=== PATIENT | female | born 1955 ===

== ENCOUNTER 2020-10-14 12:08 | Outpatient (REF) | payer MEDICARE, MEDICAID, SELFPAY ==
[2020-10-14 13:23] LABS: MANUAL DIFF FLAG NO
[2020-10-14 13:34] LABS: Basophils Absolute Auto 0.1 X10*3/uL (0.0-0.2); Basophils Percent Auto 0.7 % (0-2); Eosinophils Absolute Auto 0.2 X10*3/uL (0.0-0.4); Eosinophils Percent Auto 2.1 % (0-4); Hematocrit 45.7 % (37-47); Hemoglobin 15.4 g/dl (12.0-16.0); Imm Gran Abs Auto 0.06 X10*3/uL (0.00-0.03); Imm Gran Pct Auto 0.8 % (0.0-0.4); Lymphocytes Absolute Auto 2.2 X10*3/uL (1.2-4.9); Lymphocytes Percent Auto 30.6 % (20-40); Mean Corpuscular HGB Conc 33.7 g/dl (31.0-35.0); Mean Corpuscular Hemoglobin 29.3 pg (27.0-33.0); Mean Platelet Volume 10.1 fL (9.4-12.3); Monocytes Absolute Auto 0.7 X10*3/uL (0.1-1.2); Neutrophils Percent Auto 55.8 % (45-73); Platelet Count 282 X10*3/uL (160-400); Red Blood Count 5.25 X10*6/uL (4.20-5.50); Red Cell Distribution Width 12.8 % (11.0-16.0); White Blood Count 7.1 X10*3/uL (4.8-10.8)
[2020-10-14 14:04] LABS: Creatinine Urine 183.94 mg/dL; Microalbum/Creatinine Ratio Ur 7.6 ug/mg cr
[2020-10-14 14:07] LABS: Alanine Aminotransferase 38 U/L (0-31); Albumin Level 3.8 g/dL (3.5-5.0); Alkaline Phosphatase 129 U/L (39-117); Anion Gap 13 (12-20); Aspartate Amino Transferase 25 U/L (5-31); Bilirubin Total 0.7 mg/dL (0.0-1.0); Blood Urea Nitrogen 14 mg/dL (9-16); Calcium 8.8 mg/dL (8.4-10.2); Carbon Dioxide 26 mmol/L (22-29); Chloride 105 mmol/L (96-108); Cholesterol 180 mg/dL; Estimated Glomerular Filt Rate > 60; Glucose Fasting 182 mg/dL (60-99); HDL Cholesterol 48 mg/dL; LDL Cholesterol Calculated 109 mg/dl; Potassium 4.2 mmol/l (3.3-5.1); Sodium 140 mmol/L (135-145); Total Protein 6.9 g/dL (6.5-8.0); Triglycerides 119 mg/dL
[2020-10-14 14:29] LABS: Vitamin D 25-OH Total 26.4 ng/mL (>30)
[2020-10-15 07:22] LABS: LDL Cholesterol Direct 112 mg/dL (<100)
[2020-10-17 19:11] LABS: PTHI 65 pg/mL (14-64)
[2020-10-19 14:02] LABS: Calcium (PTHI) 9.4 mg/dL (8.6-10.4)
== END 2020-10-14 12:09 | disposition home or self-care (01) ==
LOC: HO.LAB 12:08
PROVIDERS: PCP Internal Medicine; Visit Provider Internal Medicine Endocrinology, Diabetes & Metabolism
DX: E11.9 Type 2 diabetes mellitus without complications (principal); N25.81 Secondary hyperparathyroidism of renal origin
CPT/HCPCS: 36415; 80053; 80061; 82043; 82306; 83721; 83970; 85025

== ENCOUNTER → 2020-12-27 13:50 | Outpatient (BNVA) | payer MEDICARE, MEDICAID, SELFPAY | PROVIDERS: PCP Internal Medicine; Visit Provider Internal Medicine Endocrinology, Diabetes & Metabolism | DX: E21.1 Secondary hyperparathyroidism, not elsewhere classified (principal); E11.3292 Type 2 diabetes mellitus with mild nonproliferative diabetic retinopathy without macular edema, left eye | CPT/HCPCS: 82947; 99212 ==

== ENCOUNTER 2021-01-05 13:18 | Outpatient (REF) | payer MEDICARE, MEDICAID, SELFPAY ==
--- NOTE | ~2021-01-05 | US_ITS ---
EXAMINATION: US THYROID CLINICAL INFORMATION: Nontoxic multinodular goiter. COMPARISON: Ultrasound soft tissue head/neck thyroid dated 08/13/2018. TECHNIQUE: Linear transducer grayscale and color Doppler examination with attention to the region of the thyroid. FINDINGS: SIZE: Measurements of the thyroid lobes and nodules are given in sagittal, anteroposterior and transverse dimensions respectively. Right Thyroid Lobe: 5.5 x 2.7 x 2.6 cm, volume 20.2 mL. Previously 5.4 x 3.4 x 2.4 cm, volume 23.0 mL. Parenchyma: The gland echotexture is heterogeneous. Thyroid vascularity is normal. Left Thyroid Lobe: 5.6 x 2.9 x 3.1 cm, volume 26.3 mL. Previously 5.6 x 2.1 x 2.0 cm, volume 12.3 mL. Parenchyma: The gland echotexture is heterogeneous. Thyroid vascularity is normal. Isthmus: 0.2 cm in maximum AP dimension. Previously 0.1 cm. Estimated total number of nodules greater than or equal to 1 cm: 3. Conche Operator nodules are described as follows: 1. Location: Right lower pole. Size: 3.3 x 2.8 x 2.4 cm, volume 11.6 mL. Previously: 2.9 x 2.8 x 2.3 cm, volume 9.8 mL. Nodule characteristics: Composition: Solid/almost completely solid (2). Echogenicity: Hypoechoic (2). Shape: Not taller than wide (0). Margins: Smooth (0). Echogenic Foci: None (0). ACR TI-RADS total points: 4 ACR TI-RADS category: 4 Significant change in size (>/= 20% in 2 dimensions and minimal increase of 2 mm): No Change in features: No Change in ACR TI-RADS risk category: No 2. Location: Right upper pole. Size: 0.9 x 0.7 x 0.8 cm, volume 0.3 mL. Previously: 1.0 x 1.0 x 0.5 cm, volume 0.3 mL. Nodule characteristics: Composition: Solid/almost completely solid (2). Echogenicity: Isoechoic (1). Shape: Not taller than wide (0). Margins: Smooth (0). Echogenic Foci: None (0). ACR TI-RADS total points: 3 ACR TI-RADS category: 3 Significant change in size (>/= 20% in 2 dimensions and minimal increase of 2 mm): No Change in features: No Change in ACR TI-RADS risk category: No 3. Location: Left mid pole. Size: 4.3 x 2.8 x 3.1 cm, volume 19.5 mL. Previously: 3.1 x 1.9 x 2.1 cm, volume 6.5 mL. Nodule characteristics: Composition: Solid/almost completely solid (2). Echogenicity: Hypoechoic (2). Shape: Not taller than wide (0). Margins: Smooth (0). Echogenic Foci: None (0). ACR TI-RADS total points: 4 ACR TI-RADS category: 4 Significant change in size (>/= 20% in 2 dimensions and minimal increase of 2 mm): Yes Change in features: No Change in ACR TI-RADS risk category: No 4. Location: Left lower pole. Size: 1.1 x 1.0 x 1.0 cm, volume 0.6 mL. Previously: 0.9 x 0.8 x 1.0 cm, volume 0.4 mL. Nodule characteristics: Composition: Solid (2). Echogenicity: Isoechoic (1). Shape: Not taller than wide (0). Margins: Smooth (0). Echogenic Foci: None (0). ACR TI-RADS total points: 3 ACR TI-RADS category: 3 Significant change in size (>/= 20% in 2 dimensions and minimal increase of 2 mm): No Change in features: No Change in ACR TI-RADS risk category: No NODES: No lymphadenopathy is seen in the tissue surrounding the thyroid gland. US/US thyroid IMPRESSION: Multiple bilateral thyroid nodules. Nodule #3, at the left midpole, shows significant increase in size from previous imaging. Recommend fine-needle aspiration if not previously sampled. No change in the other dominant nodule, nodule #1 in the right lower pole which was previously biopsied. ACR TI-RADS RECOMMENDATIONS: Ultrasound-guided fine-needle aspiration. * TR1 (0 point) and TR 2 (2 points): No FNA or follow up * TR3 (3 points): FNA if more than or equal to 2.5 cm in maximum dimension, follow up in 1, 3 and 5 years if 1.5 to 2.4 cm in maximum dimension. * TR 4 (4-6 points): FNA if more than or equal to 1.5 cm in maximum dimension, follow up in 1, 2, 3 and 5 years if 1 to 1.4 cm in maximum dimension. * TR 5 (more than or equal to 7 points): FNA if more than or equal to 1 cm in maximum dimension, follow up every year for 5 years if 0.5 to 0.9 cm in maximum dimension. TR3, TR4 or TR5 nodules that are below the size threshold for follow up receive no follow up.
== END 2021-01-05 13:19 | disposition home or self-care (01) ==
LOC: HO.US 13:18
PROVIDERS: Visit Provider Internal Medicine Endocrinology, Diabetes & Metabolism
DX: E04.2 Nontoxic multinodular goiter (principal)
CPT/HCPCS: 76536

== ENCOUNTER 2021-01-12 10:36 | Outpatient (REF) | payer MEDICARE, MEDICAID, SELFPAY ==
--- NOTE | 2021-01-12 11:06 | P.BOP_ITS ---
Brief Operative Note Date of Service: 01/12/21 Pre-op diagnosis: Nontoxic multinodular goiter Post-op diagnosis: same Procedure: This procedure was explained to the patient. Alternatives, risks and benefits were discussed. Written consent was obtained. After sterile preparation of the skin, fine-needle aspiration biopsy of left mid pole thyroid nodule size 4.3 x 2.8 x 3.1 cm was performed under direct ultrasound guidance to confirm accurate needle placement. The first pass was an aspiration of the cystic part, 2 ml of dark chocolate fluid was aspirated. Three passes were performed with 27 gauge needles. Sample was submitted to cytology, initial cytology reading was adequate. Two passes were dedicated for Afir[employer] genomic sequencing supervisor lending activities test. Patient tolerated procedure well. Aftercare instructions were provided. Impression: uncomplicated fine-needle aspiration biopsy of left mid pole thyroid nodule under direct ultrasound guidance. Surgeon: Maggie Vargas MD Anesthesia: local (Lidocaine 1 %) Estimated blood loss (mL): 0 Condition: stable Disposition: same day
[2021-01-12] MEDS: Lidocaine HCl 1 % MPF 5 ML VIAL SUBCUT (11:34)
== END 2021-01-12 10:37 | disposition home or self-care (01) ==
LOC: HO.US 10:36
PROVIDERS: Visit Provider Internal Medicine Endocrinology, Diabetes & Metabolism
DX: E04.2 Nontoxic multinodular goiter (principal)
CPT/HCPCS: 10005; 88172; 88173; 88177; 88305

== ENCOUNTER → 2021-03-28 12:08 | Outpatient (BNVA) | payer MEDICARE, MEDICAID, SELFPAY | PROVIDERS: PCP Internal Medicine; Visit Provider Internal Medicine Endocrinology, Diabetes & Metabolism | DX: Z13.89 Encounter for screening for other disorder (principal) | CPT/HCPCS: Q3014 ==

== ENCOUNTER → 2021-06-14 08:09 | Outpatient (BNVA) | payer MEDICARE, MEDICAID, SELFPAY | PROVIDERS: PCP Internal Medicine; Visit Provider Internal Medicine Endocrinology, Diabetes & Metabolism | DX: E11.65 Type 2 diabetes mellitus with hyperglycemia (principal); E11.3292 Type 2 diabetes mellitus with mild nonproliferative diabetic retinopathy without macular edema, left eye; E55.9 Vitamin D deficiency, unspecified; E78.5 Hyperlipidemia, unspecified; E04.2 Nontoxic multinodular goiter; E66.9 Obesity, unspecified; M85.80 Other specified disorders of bone density and structure, unspecified site; E21.1 Secondary hyperparathyroidism, not elsewhere classified; Z79.4 Long term (current) use of insulin | CPT/HCPCS: 82947; 99212 ==

== ENCOUNTER → 2022-01-24 08:05 | Outpatient (BNVA) | payer MEDICARE, MEDICAID, SELFPAY | PROVIDERS: PCP Internal Medicine; Visit Provider Internal Medicine Endocrinology, Diabetes & Metabolism | DX: E11.65 Type 2 diabetes mellitus with hyperglycemia (principal); E04.2 Nontoxic multinodular goiter; E21.1 Secondary hyperparathyroidism, not elsewhere classified | CPT/HCPCS: 82947; 83036; 99212 ==

== ENCOUNTER → 2022-02-14 10:43 | Outpatient (BNVA) | payer MEDICARE, MEDICAID, SELFPAY | PROVIDERS: PCP Internal Medicine; Visit Provider Dietitian, Registered | DX: E11.65 Type 2 diabetes mellitus with hyperglycemia (principal) | CPT/HCPCS: 97802 ==

== ENCOUNTER → 2022-03-26 14:22 | Outpatient (BNVA) | payer MEDICARE, MEDICAID, SELFPAY | PROVIDERS: PCP Internal Medicine; Visit Provider Dietitian, Registered | DX: E11.65 Type 2 diabetes mellitus with hyperglycemia (principal) | CPT/HCPCS: 97803 ==

== ENCOUNTER 2022-04-10 15:05 | Outpatient (REF) | payer MEDICARE, MEDICAID, SELFPAY ==
--- NOTE | ~2022-04-10 | MM_ITS ---
EXAMINATION: MM DIAGNOSTIC DIGITAL BREAST TOMOSYNTHESIS, BILATERAL US DIAGNOSTIC ULTRASOUND BREAST, RIGHT CLINICAL INFORMATION: Screening converted to diagnostic. Patient and family notes right nipple inversion on and off for 2 months. No discharge or palpable concern. TC score 5%. COMPARISON: Mammography: 02/16/2020, 01/29/2019, 01/08/2018 TECHNIQUE: Digital breast tomosynthesis is performed in both the craniocaudal and mediolateral oblique views along with computer-aided detection (CAD). Synthesized 2D images are generated from the tomosynthesis. Ultrasound right breast is targeted to the retroareolar and periareolar region. Grayscale imaging and color Doppler are performed without and with harmonics. FINDINGS: There are scattered areas of fibroglandular density (ACR BI-RADS breast composition Category b). Parenchymal pattern is similar to prior studies. There is no interval mass or architectural abnormality or developing density. No skin thickening or coarsening of the Montez's ligaments or interval duct ectasia. No abnormal calcifications. The axilla are unremarkable. No significant changes from prior studies. Ultrasound right breast demonstrates no cystic or solid mass or architectural abnormality or focal duct ectasia. No skin thickening or edema tracking in soft tissue planes. Results are discussed with the patient and her daughter at time of visit and with assistance of an ekg tech. Patient has appointment with PCP tomorrow. MM/MM tomosynthesis diagnostic BI IMPRESSION: -No mammographic evidence of malignancy. No significant changes from prior studies. -Unremarkable targeted right breast ultrasound. ASSESSMENT: BI-RADS 1: Negative RECOMMENDATION: 1. Patient should be managed based on the clinical impression. If clinically indicated, further evaluation may be considered with surgical consult. Decision to proceed with biopsy should be based on clinical grounds and degree of clinical concern. 2. Otherwise, routine annual screening mammography. This patient's information was entered into a reminder system with a target due date for their next mammogram.
== END 2022-04-10 15:06 | disposition home or self-care (01) ==
LOC: HO.MAMMO 15:05
PROVIDERS: PCP Internal Medicine; Visit Provider Internal Medicine
DX: N64.59 Other signs and symptoms in breast (principal)
CPT/HCPCS: 76642; 77062; 77066

== ENCOUNTER → 2022-05-22 11:36 | Outpatient (BNVA) | payer MEDICARE, MEDICAID, SELFPAY | PROVIDERS: PCP Internal Medicine; Visit Provider Nurse Practitioner Family | DX: Z01.818 Encounter for other preprocedural examination (principal); K59.01 Slow transit constipation | CPT/HCPCS: 99212 ==

== ENCOUNTER → 2022-05-28 15:51 | Outpatient (BNVA) | payer MEDICARE, MEDICAID, SELFPAY | PROVIDERS: PCP Internal Medicine; Visit Provider Registered Nurse Diabetes Educator | DX: E11.65 Type 2 diabetes mellitus with hyperglycemia (principal) | CPT/HCPCS: 99211 ==

== ENCOUNTER → 2022-06-14 13:30 | Outpatient (BNVA) | payer MEDICARE, MEDICAID, SELFPAY | PROVIDERS: PCP Internal Medicine; Visit Provider Dietitian, Registered | DX: E11.65 Type 2 diabetes mellitus with hyperglycemia (principal); Z79.4 Long term (current) use of insulin; Z71.3 Dietary counseling and surveillance | CPT/HCPCS: 97803 ==

== ENCOUNTER 2022-06-19 10:09 | Outpatient (REF) | payer MEDICARE, MEDICAID, SELFPAY ==
[2022-06-19 10:57] LABS: Estimated Average Glucose 186 mg/dL; Hemoglobin A1c % 8.1 %
[2022-06-19 11:20] LABS: Alanine Aminotransferase 41 U/L (0-31); Albumin Level 3.6 g/dL (3.5-5.0); Alkaline Phosphatase 116 U/L (39-117); Anion Gap 11 (12-20); Aspartate Amino Transferase 37 U/L (5-31); Bilirubin Total 0.5 mg/dL (0.0-1.0); Blood Urea Nitrogen 12 mg/dL (9-16); Calcium 9.1 mg/dL (8.4-10.2); Carbon Dioxide 28 mmol/L (22-29); Chloride 105 mmol/L (96-108); Cholesterol 129 mg/dL; Estimated Glomerular Filt Rate > 60; Glucose Fasting 179 mg/dL (60-99); HDL Cholesterol 43 mg/dL; LDL Cholesterol Calculated 69 mg/dl; Potassium 4.4 mmol/L (3.3-5.1); Sodium 140 mmol/L (135-145); Total Protein 6.8 g/dL (6.5-8.0); Triglycerides 89 mg/dL
[2022-06-19 11:41] LABS: Vitamin D 25-OH Total 32.9 ng/mL (>30)
[2022-06-19 14:14] LABS: Creatinine Urine 125.37 mg/dL; Microalbum/Creatinine Ratio Ur 63.8 ug/mg cr
== END 2022-06-19 10:10 | disposition home or self-care (01) ==
LOC: HO.10HDL 10:09
PROVIDERS: Absent Provider Internal Medicine Endocrinology, Diabetes & Metabolism; Visit Provider Internal Medicine
DX: E11.65 Type 2 diabetes mellitus with hyperglycemia (principal); E11.3292 Type 2 diabetes mellitus with mild nonproliferative diabetic retinopathy without macular edema, left eye; E78.5 Hyperlipidemia, unspecified; E55.9 Vitamin D deficiency, unspecified
CPT/HCPCS: 36415; 80053; 80061; 82043; 82306; 83036

== ENCOUNTER → 2022-06-25 15:06 | Outpatient (BNVA) | payer MEDICARE, MEDICAID, SELFPAY | PROVIDERS: PCP Internal Medicine; Visit Provider Registered Nurse Diabetes Educator | DX: E11.65 Type 2 diabetes mellitus with hyperglycemia (principal) | CPT/HCPCS: 99211 ==

== ENCOUNTER → 2022-08-09 12:39 | Outpatient (BNVA) | payer MEDICARE, MEDICAID, SELFPAY | PROVIDERS: PCP Internal Medicine; Visit Provider Dietitian, Registered | DX: E11.65 Type 2 diabetes mellitus with hyperglycemia (principal) | CPT/HCPCS: 97803 ==

== ENCOUNTER → 2022-09-04 15:27 | Outpatient (BNVA) | payer MEDICARE, MEDICAID, SELFPAY | PROVIDERS: PCP Internal Medicine; Visit Provider Registered Nurse Diabetes Educator | DX: E11.65 Type 2 diabetes mellitus with hyperglycemia (principal); Z79.4 Long term (current) use of insulin | CPT/HCPCS: 99211 ==

== ENCOUNTER 2022-10-08 14:44 | Outpatient (REF) | payer MEDICARE, MEDICAID, SELFPAY ==
--- NOTE | ~2022-10-08 | US_ITS ---
EXAMINATION: US THYROID CLINICAL INFORMATION: Nontoxic multinodular goiter. COMPARISON: Thyroid ultrasound 01/05/2021 and 08/13/2018. Ultrasound-guided left thyroid biopsy 01/12/2021. TECHNIQUE: Linear transducer grayscale and color Doppler examination with attention to the region of the thyroid. FINDINGS: SIZE: Measurements of the thyroid lobes and nodules are given in sagittal, anteroposterior and transverse dimensions respectively. Right Thyroid Lobe: 6.8 x 3.9 x 2.3 cm, volume 32.0 mL. Previously 5.5 x 2.7 x 2.6 cm, volume 20.2 mL. Parenchyma: The gland echotexture is homogeneous. Thyroid vascularity is increased. Left Thyroid Lobe: 6.8 x 3.1 x 2.4 cm, volume 26.6 mL. Previously 5.6 x 2.9 x 3.1 cm, volume 26.3 mL. Parenchyma: The gland echotexture is homogeneous. Thyroid vascularity is increased. Isthmus: 0.2 cm in maximum AP dimension. Previously 0.2 cm. Estimated total number of nodules greater than or equal to 1 cm: 4. Tack Driller nodules are described as follows: 1. Location: Right lower pole. Size: 3.7 x 3.2 x 2.5 cm, volume 15.4 mL. Previously: 3.3 x 2.8 x 2.4 cm, volume 11.6 mL. Nodule characteristics: Composition: Solid (2). Echogenicity: Isoechoic (1). Shape: Taller than wide (3). Margins: Smooth (0). Echogenic Foci: None (0). ACR TI-RADS total points: 6 Previous: 4 ACR TI-RADS category: 4 Previous: 4 Significant change in size (>/= 20% in 2 dimensions and minimal increase of 2 mm or 50% or greater increase in volume): Change in features: Change in ACR TI-RADS risk category: 2. Location: Right upper pole. Size: 1.0 x 0.7 x 0.9 cm, volume 0.3 mL. Previously: 0.9 x 0.7 x 0.8 cm, volume 0.3 mL. Nodule characteristics: Composition: Solid (2). Echogenicity: Isoechoic (1). Shape: Not taller than wide (0). Margins: Smooth (0). Echogenic Foci: None (0). ACR TI-RADS total points: 3 Previous: 3 ACR TI-RADS category: 3 Previous: 3 Significant change in size (>/= 20% in 2 dimensions and minimal increase of 2 mm or 50% or greater increase in volume): Change in features: Change in ACR TI-RADS risk category: 3. Location: Left mid pole. Size: 4.2 x 2.6 x 2.6 cm, volume 14.8 mL. Previously: 4.3 x 2.8 x 3.1 cm, volume 19.5 mL. Nodule characteristics: Composition: Solid (2). Echogenicity: Hypoechoic (2). Shape: Not taller than wide (0). Margins: Smooth (0). Echogenic Foci: None (0). ACR TI-RADS total points: 4 Previous: 4 ACR TI-RADS category: 4 Previous: 4 Significant change in size (>/= 20% in 2 dimensions and minimal increase of 2 mm or 50% or greater increase in volume): Change in features: Change in ACR TI-RADS risk category: 4. Location: Left lower pole. Size: 1.9 x 1.2 x 1.1 cm, volume 1.2 mL. Previously: 1.1 x 1.0 x 1.0 cm, volume 0.6 mL. Nodule characteristics: Composition: Solid (2). Echogenicity: Isoechoic (1). Shape: Not taller than wide (0). Margins: Smooth (0). Echogenic Foci: None (0). ACR TI-RADS total points: 3 Previous: 3 ACR TI-RADS category: 3 Previous: 3 Significant change in size (>/= 20% in 2 dimensions and minimal increase of 2 mm or 50% or greater increase in volume): Change in features: Change in ACR TI-RADS risk category: NODES: No lymphadenopathy is seen in the tissue surrounding the thyroid gland. US/US thyroid IMPRESSION: Enlarged hypervascular thyroid gland. There is slight interval increase in size in the largest nodule in the lower pole on the right. This meets TI RADS criteria for fine-needle aspiration. There is interval increase in size in the now 1 x 2 cm nodule in the inferior left lobe. Bilateral thyroid nodules are otherwise stable. ACR TI-RADS RECOMMENDATION REFERENCE: Ultrasound-guided fine-needle aspiration, followup ultrasound, no further follow up. * TR1 (0 point) and TR 2 (2 points): No FNA or follow up * TR3 (3 points): FNA if more than or equal to 2.5 cm in maximum dimension, followup ultrasound in 1, 3 and 5 years if 1.5 to 2.4 cm in maximum dimension. * TR4 (4-6 points): FNA if more than or equal to 1.5 cm in maximum dimension, followup ultrasound in 1, 2, 3 and 5 years if 1 to 1.4 cm in maximum dimension. * TR5 (more than or equal to 7 points): FNA if more than or equal to 1 cm in maximum dimension, followup ultrasound every year for 5 years if 0.5 to 0.9 cm in maximum dimension. * TR3, TR4 or TR5 nodules that are below the size threshold for follow up receive no follow up.
== END 2022-10-08 14:45 | disposition home or self-care (01) ==
LOC: HO.US 14:44
PROVIDERS: Visit Provider Internal Medicine Endocrinology, Diabetes & Metabolism
DX: E04.2 Nontoxic multinodular goiter (principal)
CPT/HCPCS: 76536

== ENCOUNTER 2022-10-09 15:43 | Outpatient (REF) | payer MEDICARE, MEDICAID, SELFPAY | END 2022-10-09 15:44 | disposition home or self-care (01) | LOC: HO.MRI 15:43 | PROVIDERS: Visit Provider Internal Medicine | DX: Z13.89 Encounter for screening for other disorder (principal) ==

== ENCOUNTER → 2022-11-14 13:40 | Outpatient (BNVA) | payer MEDICARE, MEDICAID, SELFPAY | PROVIDERS: PCP Internal Medicine; Visit Provider Internal Medicine Endocrinology, Diabetes & Metabolism | DX: E11.65 Type 2 diabetes mellitus with hyperglycemia (principal); E04.2 Nontoxic multinodular goiter; E21.1 Secondary hyperparathyroidism, not elsewhere classified | CPT/HCPCS: 82947; 99212 ==

== ENCOUNTER 2023-02-21 08:42 | Outpatient (REF) | payer MEDICARE, MEDICAID, SELFPAY ==
--- NOTE | 2023-02-21 09:52 | P.BOP_ITS ---
Brief Operative Note Date of Service: 02/21/23 Pre-op diagnosis: Multinodular Thyroid Procedure: This is doctor Leslie Michelle. This is an ultrasound-guided fine-needle aspiration report. Indication: Multinodular Thyroid Porcedure: Procedure was explained to the patient. Alternatives, the risk and benefits were discussed. Written consent was obtained. A time-out was also obtained. After sterile preparation, 1 ml of 1% lidocaine solution was applied subcutaneously for anesthetic effect. Then Fine-needle aspiration of a right mid pole 4.6 x 3.0 x 2.7 cm thyroid nodule was performed using direct ultrasound guidance to confirm accurate needle placement. Four aspirations were made using 27 gauge needles. Samples were submitted for cytology. 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 The patient tolerated the pr ocedure well. Aftercare instructions were provided. Impression: Uncomplicated fine needle aspiration biopsy of a right mid pole 4.6 x 3.0 x 2.7 cm thyroid nodule under ultrasound guidance. Of note, the patient previously underwent biopsy of 3 separate nodules as listed below. 1) left mid pole 4.3 x 2.8 x 3.1 cm thyroid nodule biopsied in 2020, now measuring 3.7 x 2.6 x 2.0 cm so no repeat FNA indicated 2) Right lower pole 2.9 x 1.8 x 2.2 cm thyroid nodule biopsied in 2019, now measuring 1.5 x 0.8 x 1.4 cm so no repeat FNA indicated 3) Left lower pole previously measured as 1 nodule measuring 3.0 x 1.9 x 2.0 cm and biopsied in 2019, now measured as 2 separate nodules measuring 1.0 cm in max dimension and 0.9 cm in max dimension, spongiform so no repeat FNA indicated Surgeon: Leslie Michelle, DO Was an Camera Control Operator used for this Procedure?: No Estimated blood loss (mL): 0
[2023-02-21] MEDS: Lidocaine HCl 1 % MPF 5 ML VIAL 1 ML SUBCUT (12:00)
== END 2023-02-21 08:43 | disposition home or self-care (01) ==
LOC: HO.US 08:42
PROVIDERS: PCP Internal Medicine; Visit Provider Internal Medicine Endocrinology, Diabetes & Metabolism
DX: E04.2 Nontoxic multinodular goiter (principal)
CPT/HCPCS: 10005; 88172; 88173; 88177; 88305

== ENCOUNTER → 2023-03-07 13:03 | Outpatient (BNVA) | payer MEDICARE, MEDICAID, SELFPAY | PROVIDERS: PCP Internal Medicine; Visit Provider Internal Medicine Endocrinology, Diabetes & Metabolism | DX: E04.2 Nontoxic multinodular goiter (principal); E21.1 Secondary hyperparathyroidism, not elsewhere classified; E11.65 Type 2 diabetes mellitus with hyperglycemia | CPT/HCPCS: 82947; 83036; 99212 ==

== ENCOUNTER 2023-04-16 14:40 | Outpatient (REF) | payer MEDICARE, MEDICAID, SELFPAY ==
--- NOTE | ~2023-04-16 | MM_ITS ---
EXAMINATION: MM SCREENING DIGITAL BREAST TOMOSYNTHESIS, BILATERAL CLINICAL INFORMATION: Screening. Asymptomatic. The lifetime risk of breast cancer based on the Tyrer-Cuzick Model is 5%. COMPARISON: Mammography: 04/10/2022, 02/16/2020, 01/29/2019; right breast ultrasound 04/10/2022 TECHNIQUE: Digital breast tomosynthesis is performed in both the craniocaudal and mediolateral oblique views along with computer-aided detection (CAD). Synthesized 2D images are generated from the tomosynthesis. FINDINGS: There are scattered areas of fibroglandular density (ACR BI-RADS breast composition Category b). There are no significant masses, abnormal calcifications, or other abnormalities. Parenchymal pattern is similar to prior studies. There is no developing density or architectural abnormality. The axilla and skin contours are unremarkable. No significant changes. MM/MM tomosynthesis screening BI IMPRESSION: No mammographic evidence of malignancy. ASSESSMENT: BI-RADS 1: Negative RECOMMENDATION: Routine annual mammography screening. This patient's information was entered into a reminder system with a target due date for their next mammogram.
== END 2023-04-16 14:41 | disposition home or self-care (01) ==
LOC: HO.MAMMO 14:40
PROVIDERS: PCP Internal Medicine; Visit Provider Internal Medicine
DX: Z12.31 Encounter for screening mammogram for malignant neoplasm of breast (principal)
CPT/HCPCS: 77063; 77067

== ENCOUNTER → 2023-06-05 14:46 | Outpatient (BNVA) | payer MEDICARE, MEDICAID, SELFPAY | PROVIDERS: PCP Internal Medicine; Visit Provider Internal Medicine Endocrinology, Diabetes & Metabolism | DX: E11.65 Type 2 diabetes mellitus with hyperglycemia (principal); E21.1 Secondary hyperparathyroidism, not elsewhere classified; E04.2 Nontoxic multinodular goiter | CPT/HCPCS: 82947; 83036; 99212 ==

== ENCOUNTER 2023-09-24 12:19 | Outpatient (REF) | payer MEDICARE, MEDICAID, SELFPAY ==
[2023-09-24 14:25] LABS: Anion Gap 13 (12-20); Blood Urea Nitrogen 12 mg/dL (9-16); Calcium 9.2 mg/dL (8.4-10.2); Carbon Dioxide 26 mmol/L (22-29); Chloride 103 mmol/L (96-108); Estimated Glomerular Filt Rate > 60; Glucose Random 241 mg/dL (60-115); Potassium 4.7 mmol/L (3.3-5.1); Sodium 137 mmol/L (135-145)
[2023-09-24 14:42] LABS: Vitamin D 25-OH Total 36.8 ng/mL (>30)
[2023-09-25 16:34] LABS: Calcium (PTHI) 9.3 mg/dL (8.6-10.4); PTHI 64 pg/mL (16-77)
== END 2023-09-24 12:20 | disposition home or self-care (01) ==
LOC: HO.10HDL 12:19
PROVIDERS: Visit Provider Internal Medicine Endocrinology, Diabetes & Metabolism
DX: E11.65 Type 2 diabetes mellitus with hyperglycemia (principal); E21.1 Secondary hyperparathyroidism, not elsewhere classified; Z79.4 Long term (current) use of insulin
CPT/HCPCS: 36415; 80048; 82306; 82947; 83036; 83970; 99212

== ENCOUNTER 2023-09-24 12:29 | Outpatient (AMB) | payer MEDICARE, MEDICAID, SELFPAY ==
--- NOTE | 2023-09-24 12:39 | MHC.OFFVIS ---
Intake Vital Signs 09/24/23 12:41 Weight 214 lb 11.684 oz BP 122/76 Blood Pressure Location Lt brachial Position Sitting Pulse 88 Pulse Source Pulse Oximeter Intake Visit Reasons: f/u Type 2 DM Intake Note: Patient present today to follow up on Type 2 Diabetes Mellitus. Patient receives DME supplies through: [employer] Last Diabetic Eye exam: March 2023 Last Podiatry Visit: None Random Glucose: 226 mg/dl HgA1C:8.9%E Bottle House Pumper Required: Yes Bottle House Pumper Language: Interior Plant Caretaker Name: Megan medical staff Information Interpreted: non-clinical & clinical Accompanied by: Daughter Allergies No Known Allergies [No Known Allergies*] Allergy (Verified 09/24/23 13:04) Medication List - Last Reconciled 09/24/23 by Tramaine Herrmann MD bisacodyl (Dulcolax (bisacodyl)) 10 mg (2 x 5 mg) PO ONCE 1 day blood sugar diagnostic (FreeStyle Lite Strips) 1 strip miscellaneous TID 30 days blood-glucose meter (FreeStyle Lite Meter kit) As directed checks fingersticks 4X/day buspirone 7.5 mg PO BID mmyrfolfnw-aowohmggqnlfd-zkve 50-300-40 mg 1 cap PO Q8H PRN 30 days cholecalciferol (vitamin D3) 50 mcg PO DAILY 30 days citalopram 20 mg PO DAILY dulaglutide (Trulicity) 4.5 mg (0.5 mL) subcut QWEEK empagliflozin (Jardiance) 25 mg PO DAILY flash glucose scanning reader (FreeStyle Blank 2 [place]) As directed flash glucose sensor (FreeStyle Blank 2 Sensor kit) As directed change every 14 days insulin lispro (Humalog KwikPen (U-100) Insulin) 10 units (0.1 mL) subcut .before lunch lancets (FreeStyle Lancets) As directed 3 times a day Lantus Solostar U-100 Insulin (insulin glargine) 40 units (0.4 mL) subcut DAILY 90 days NS latanoprost 0.005% 1 drp ophthalmic (eye) BEDTIME lisinopril 40 mg PO DAILY 90 days lorazepam 0.5 mg PO BID PRN metformin 500 mg PO BID 90 days mirtazapine 30 mg PO BEDTIME paliperidone ER 3 mg PO DAILY pantoprazole 40 mg PO DAILY 90 days polyethylene glycol 3350 (Miralax) 238 grams PO ONCE rosuvastatin (Crestor) 40 mg PO DAILY 90 days sumatriptan succinate 25 mg PO Q2-4H PRN 30 days HPI HPI Comments History of Present Illness Details She has DM type 2 diagnosed 15 years ago. She is Currently on metformin ER 500 mg bid , Lantus 40 units at bed time. Trulicity 4.5 mg weekly. Jardiance 10 mg QD ( not taking because ran out ) Denies side effects of the medications. Blank download shows says sensor is active 71% of the time. Average glucose is 223 with G mi of 8.6% and variability of 24 .7%. 23% range with 50% hyperglycemia and 27% very hyperglycemic and no hypoglycemia. Pattern shows increases in glucose after lunch with declining blood sugars overnight No hypoglycemia Complications:, nephropathy, neuropathy, no CVA, no CAD, PVD. Last ophthalmology evaluation:last mo . Has appt next wk , she has mild nonproliferative retinopathy in the left eye without macular edema. Right eye has no retinopathy. She denies nocturia , polyuria and polydipsia, she denies numbness, tingling, burning pain, blurred vision. COUNT INCLUDES THE [facility] Medical History Cognitive impairment Diabetes type 2, uncontrolled Dyslipidemia Hyperparathyroidism due to vitamin D deficiency nursing home (current) use of insulin Mild recurrent major depression Non-proliferative diabetic retinopathy, mild, left eye Non-toxic multinodular goiter Obesity (BMI 30-39.9) Osteopenia Physical exam Vitamin D deficiency Surgical History H/O foot surgery H/O lithotripsy History of appendectomy Hx laparoscopic cholecystectomy Hx of tubal ligation S/P CARISSA-BSO Family History Mother Diabetes Father Diabetes Social History Housing: Apartment Alcohol intake: never Patient Tobacco Use Status: Former Tobacco user Quit Date: Over 20 years ago. e-Cigarette/Vaping Use: Never Used Second Hand Smoke Exposure: No service: No Current occupational status: unemployed Cognitive needs: No Hearing needs: No Vision needs: Yes Physical Exam Vital Signs: Last Vital Signs Pulse 88 09/24/23 12:41 BP 122/76 09/24/23 12:41 Absence of Cushingoid features. Absence of acromegalic features. Neck exam reveals nl size thyroid about 15 gms. No thyroid nodules palpable. No carotid bruits present. Lungs CTA. Heart S1 S2, Reg R/R. No M/R/ G. Skin exam reveals absence of vitiligo or acanthosis nigricans. Abdominal exam reveals Soft NT/ND with NA BS. No organomegaly present. Neck Other: . Extrem Other: Visual exam of foot performed. No ulcerations or open lesions. No onchomycosis, no callouses.Pulses 2 + distally Sensation intact to monofilament exam. Vibratory sensation sensed is intact with 128 Hz tuning fork Results AMB Hemoglobin A1c AMB Hemoglobin A1c 8.9 % Last Edit by Masha Oglesby on 09/24/23 13:07 Assessment & Plan Assessment & Plan (1) Diabetes type 2, uncontrolled: Code(s): E11.65 - Type 2 diabetes mellitus with hyperglycemia Plan: This is a 68-year-old [place] female with a history of type 2 diabetes being treated with metformin extended release, Trulicity and basal insulin with poor glycemic control and known microvascular complications namely retinopathy. Plan is start Humalog 10 units before lunch and titrate this. Post-prandial lunch excursion. Will also restart Jardiance at 25 mg . Will recheck BMP in 10 days Patient should follow-up with the public health educator Orders: Orders AMB Hemoglobin A1c Today E11.9 - Type 2 diabetes mellitus without complications, Z79.4 - ad terminal makeup operator (current) use of insulin Basic Metabolic Panel 10 Days E11.65 - Type 2 diabetes mellitus with hyperglycemia Medications: New insulin lispro (Humalog KwikPen (U-100) Insulin) 10 units (0.1 mL) subcut .before lunch 15 mL 5RF empagliflozin (Jardiance) 25 mg PO DAILY 30 tabs 5RF Discontinued empagliflozin (Jardiance) Discontinued Reason: Doctor's Order 10 mg PO DAILY 30 tabs 4RF Coding Level of Care Code Est Pt Level 4 (11959) Diagnoses Diabetes type 2, uncontrolled E11.65
[2023-09-24 12:41] VITALS: BP 122/76; PULSE 88
[2023-09-24 12:52] LABS: Glucose, Whole Blood 226 mg/dL (60-115)
== END 2023-09-24 13:10 | disposition home or self-care (01) ==
PROVIDERS: PCP Internal Medicine; Visit Provider Internal Medicine Endocrinology, Diabetes & Metabolism
DX: E11.9 Type 2 diabetes mellitus without complications (principal); Z79.4 Long term (current) use of insulin; E11.65 Type 2 diabetes mellitus with hyperglycemia
CPT/HCPCS: 99214

== ENCOUNTER → 2024-04-20 10:52 | Outpatient (BNV) | payer MEDICARE, MEDICAID, SELFPAY | PROVIDERS: PCP Internal Medicine; Visit Provider Radiology Diagnostic Radiology | DX: Z12.31 Encounter for screening mammogram for malignant neoplasm of breast (principal) | CPT/HCPCS: 77063; 77067 ==

== ENCOUNTER 2024-04-20 14:25 | Outpatient (REF) | payer MEDICARE, MEDICAID, SELFPAY ==
--- NOTE | ~2024-04-20 | MM_ITS ---
EXAMINATION: MM SCREENING DIGITAL BREAST TOMOSYNTHESIS, BILATERAL CLINICAL INFORMATION: Screening. Asymptomatic. COMPARISON: Mammography: 04/16/2023, 04/10/2022, 02/16/2020, 01/29/2019; right breast ultrasound 04/10/2022. TECHNIQUE: Digital breast tomosynthesis is performed in both the craniocaudal and mediolateral oblique views along with computer-aided detection (CAD). Synthesized 2D images are generated from the tomosynthesis. FINDINGS: There are scattered areas of fibroglandular density (ACR BI-RADS breast composition Category b). Scattered benign skin calcifications present in both breasts. No suspicious masses, suspicious grouped calcifications, or areas of architectural distortion in either breast. Parenchymal pattern is unchanged from prior exams. No skin or axillary abnormalities. MM/MM tomosynthesis screening BI IMPRESSION: No mammographic evidence of malignancy. No significant interval change. ASSESSMENT: BI-RADS BI-RADS 2 - Benign Findings RECOMMENDATION: Routine annual mammography screening. 1 year F/U This examination should not preclude the clinical evaluation of a suspicious palpable abnormality. This patient's information was entered into a reminder system with a target due date for their next mammogram.
== END 2024-04-20 14:26 | disposition home or self-care (01) ==
LOC: HO.MAMMO 14:25
PROVIDERS: PCP Internal Medicine; Visit Provider Internal Medicine
DX: Z12.31 Encounter for screening mammogram for malignant neoplasm of breast (principal)
CPT/HCPCS: 77063; 77067

== ENCOUNTER 2024-06-02 09:20 | Outpatient (AMB) | payer MEDICARE, MEDICAID, SELFPAY ==
--- NOTE | 2024-06-02 09:28 | MHC.OFFVIS ---
Vital Signs 06/02/24 09:33 Height 5 ft 3 in Weight 210 lb 1.608 oz BMI 37.2 BP 120/70 Blood Pressure Location Lt brachial Position Sitting Pulse 83 Pulse Source Pulse Oximeter Intake Visit Reasons: f/u Type 2 DM-confirmed Intake Note: Patient presents today to follow up on D2MT. Last Diabetic Eye exam: 05/20/24 Last Podiatry Visit: Doesn't have one. Random Glucose: 213 mg/dl HgA1c: 8.1% Coil Repair Technician Required: Yes Coil Repair Technician Language: [employer] Name: [place] Information Interpreted: non-clinical & clinical Accompanied by: Daughter Allergies No Known Allergies [No Known Allergies*] Allergy (Verified 06/02/24 09:36) HPI Comments Details: She has DM type 2 diagnosed 15 years ago. She is Currently on metformin ER 500 mg bid , Lantus 40 units at bed time. Humalog 10 units pre-lunch Trulicity 4.5 mg weekly. Farxiga 10 mg QD Denies side effects of the medications. Blank download shows says sensor is active 73% of the time. Average glucose is 223 with G mi of 8.9% and variability of 30.5%. 27% range with 39% hyperglycemia and 34% very hyperglycemic and no hypoglycemia. Pattern shows increases in glucose after lunch with declining blood sugars overnight No hypoglycemia Complications:, nephropathy, neuropathy, no CVA, no CAD, PVD. Last ophthalmology evaluation: 05/20/2024 . , she has mild nonproliferative retinopathy in the left eye without macular edema. Right eye has no retinopathy. She denies nocturia , polyuria and polydipsia, she denies numbness, tingling, burning pain, blurred vision. FORMERLY [facility], [facility] Medical History Cognitive impairment Diabetes type 2, uncontrolled Dyslipidemia Hyperparathyroidism due to vitamin D deficiency prison (current) use of insulin Mild recurrent major depression Non-proliferative diabetic retinopathy, mild, left eye Non-toxic multinodular goiter Obesity (BMI 30-39.9) Osteopenia Physical exam Vitamin D deficiency Surgical History H/O lithotripsy S/P CARISSA-BSO Hx of tubal ligation H/O foot surgery History of appendectomy Hx laparoscopic cholecystectomy Family History Mother Diabetes Father Diabetes Social History Housing: Apartment Alcohol intake: never Patient Tobacco Use Status: Former Tobacco user e-Cigarette/Vaping Use: Never Used Second Hand Smoke Exposure: No service: No Current occupational status: unemployed Cognitive needs: No Hearing needs: No Vision needs: Yes Physical Exam Vital Signs: Last Vital Signs Pulse 83 06/02/24 09:33 BP 120/70 06/02/24 09:33 BMI result Body Mass Index 37.2 Absence of Cushingoid features. Absence of acromegalic features. Neck exam reveals nl size thyroid about 15 gms. No thyroid nodules palpable. No carotid bruits present. Lungs CTA. Heart S1 S2, Reg R/R. No M/R/ G. Skin exam reveals absence of vitiligo or acanthosis nigricans. Abdominal exam reveals Soft NT/ND with NA BS. No organomegaly present. Neck Other: . Extrem Other: Visual exam of foot performed. No ulcerations or open lesions. No onchomycosis, no callouses.Pulses 2 + distally Sensation intact to monofilament exam. Vibratory sensation sensed is intact with 128 Hz tuning fork Results AMB Hemoglobin A1c AMB Hemoglobin A1c 8.1 % Last Edit by ANTOINE Leung on 06/02/24 09:50 Results Reviewed Results Reviewed: Laboratory Last Values Glucose (Clinic) 213 mg/dL (60-115) H 06/02/24 09:40 Assessment & Plan Assessment & Plan (1) Diabetes type 2, uncontrolled: Code(s): E11.65 - Type 2 diabetes mellitus with hyperglycemia Category: Medical Plan: This is a 69-year-old [place] female with a history of type 2 diabetes being treated with metformin extended release, Trulicity and basal insulin with poor glycemic control and known microvascular complications namely retinopathy. Plan is change the Trulicity to Ozempic 1 mg Q weekly. Patient warned of side effects of Ozempic including but not limited to nausea, vomiting rare risk of pancreatitis. If after several weeks glycemic control is not optimized, could increase Humalog 20 units before lunch and increase Lantus to 48 units but would hold off to see the effects of Ozempic 1st . Will check basic metabolic panel lipid profile and microalbumin to creatinine ratio Patient should follow-up with the peer educator and primary care diabetic team here Orders: Orders Microalbumin, Random (w Creat) Today E11.65 - Type 2 diabetes mellitus with hyperglycemia Basic Metabolic Panel Fasting Today E11.65 - Type 2 diabetes mellitus with hyperglycemia Lipid Panel Today E11.65 - Type 2 diabetes mellitus with hyperglycemia AMB Hemoglobin A1c Today E11.65 - Type 2 diabetes mellitus with hyperglycemia, E11.9 - Type 2 diabetes mellitus without complications, Z13.9 - Encounter for screening, unspecified, Z79.4 - intermediate manager (current) use of insulin Medications: New semaglutide (Ozempic) 1 mg (0.75 mL) subcut QWEEK 3 mL 4RF Discontinued dulaglutide (Trulicity) Discontinued Reason: Doctor's Order 4.5 mg (0.5 mL) subcut QWEEK 2 mL 4RF Coding Level of Care Code Est Pt Level 4 (32368) Complex EM visit Add On G2211 Diagnoses Diabetes type 2, uncontrolled E11.
[2024-06-02 09:33] VITALS: BP 120/70; PULSE 83; BMI 37.2
[2024-06-02 09:44] LABS: Glucose, Whole Blood 213 mg/dL (60-115)
== END 2024-06-02 09:55 | disposition home or self-care (01) ==
PROVIDERS: PCP Internal Medicine; Visit Provider Internal Medicine Endocrinology, Diabetes & Metabolism
DX: Z13.9 Encounter for screening, unspecified (principal); E11.9 Type 2 diabetes mellitus without complications; Z79.4 Long term (current) use of insulin; E11.65 Type 2 diabetes mellitus with hyperglycemia
CPT/HCPCS: 99214; G2211

== ENCOUNTER → 2024-06-02 09:20 | Outpatient (BNVA) | payer MEDICARE, MEDICAID, SELFPAY | PROVIDERS: PCP Internal Medicine; Visit Provider Internal Medicine Endocrinology, Diabetes & Metabolism | DX: E11.65 Type 2 diabetes mellitus with hyperglycemia (principal) | CPT/HCPCS: 82947; 83036; 99212 ==

== ENCOUNTER 2024-06-23 12:31 | Outpatient (AMB) | payer MEDICARE, MEDICAID, SELFPAY ==
--- NOTE | 2024-06-23 13:25 | MHC.AMDMED ---
Intake Intake Visit Reasons: T2DM Dot Compliance Specialist Required: Yes Dot Compliance Specialist Language: Unmanned Equipment Operator Name: Nathanael [facility] [place] Accompanied by: Daughter Allergies No Known Allergies [No Known Allergies*] Allergy (Verified 06/02/24 09:36) HPI Comprehensive Diabetes Asmnt Most Recent Diabetes Results: Creatinine 0.74 mg/dL (0.5-1.4) 09/24/23 Blood Urea Nitrogen 12 mg/dL (9-16) 09/24/23 Sodium 137 mmol/L (135-145) 09/24/23 Potassium 4.7 mmol/L (3.3-5.1) 09/24/23 Chloride 103 mmol/L (96-108) 09/24/23 Carbon Dioxide 26 mmol/L (22-29) 09/24/23 Calcium 9.2 mg/dL (8.4-10.2) 09/24/23 [facility] Medical History Cognitive impairment Diabetes type 2, uncontrolled Dyslipidemia Hyperparathyroidism due to vitamin D deficiency nursing home (current) use of insulin Mild recurrent major depression Non-proliferative diabetic retinopathy, mild, left eye Non-toxic multinodular goiter Obesity (BMI 30-39.9) Osteopenia Physical exam Vitamin D deficiency Surgical History H/O lithotripsy S/P CARISSA-BSO Hx of tubal ligation H/O foot surgery History of appendectomy Hx laparoscopic cholecystectomy Family History Mother Diabetes Father Diabetes Social History Housing: Apartment Alcohol intake: never Patient Tobacco Use Status: Former Tobacco user e-Cigarette/Vaping Use: Never Used Second Hand Smoke Exposure: No service: No Current occupational status: unemployed Cognitive needs: No Hearing needs: No Vision needs: Yes Assessment & Plan Assessment & Plan (1) Type 2 diabetes mellitus, with long-term current use of insulin: Code(s): E11.9 - Type 2 diabetes mellitus without complications; Z79.4 - nursing home (current) use of insulin Plan: Learning objectives: The patient was provided with verbal and written education on the following topics as outlined below. The patient met all learning objectives and was able to verbalize understanding and provide teach back of education topics discussed . The patient was provided with the opportunity to ask questions and all questions were answered. Patient Assessment Assess patient education level/literacy/barriers Patient questions/concerns, patient at visit with her daughter. At visit with Dr. Herrmann patient was switched from Trulicity to Ozempic however PA was denied. Message sent to Dr. Herrmann for alternative medication Currently patient is not wearing glucose sensor because last one failed. Patient's daughter given customer service number to [employer], request replacement sensor. Request for meter, strips and lancets sent to Dr. Herrmann Patient is on Lantus 40 units daily Humalog 10 units before meals Patient reports she has only been taking Humalog 10 units before supper, not at any other meals. Reviewed with patient action time of Humalog, discussed the importance of taking Humalog 10 units before each meal Patient agreed What is Diabetes? Pathophysiology How the body produces and uses insulin Identify type of DM Risk factors Signs of Diabetes Brief overview of Diabetes Management Monitoring blood sugar Following a meal plan Regular exercise Maintaining a healthy weight Taking medication as needed Members of the care team (PCP, RN, MA, RD, CDE, band lining bander) Blood glucose monitoring When/how often to test Target blood sugar ranges Patient using freestyle Blank 2 Average glucose for the past 14 days 246 mg/dL Patient above target 72% Patient at target 18% Patient below target 0% Introduction to Nutrition Importance of healthy diet in managing DM Diet is personalized to individual preference Review patient?s regular diet/food preferences Who prepares meals/does food shopping/ Dining out?/ Barriers? How diet effects glucose Eating 3 balanced meals a day with small, healthy snacks between meals Review food groups Carbohydrates: What is a carbohydrate/Which food/food groups are considered carbohydrates Effect of carbohydrates on blood glucose Portion sizes Reading food labels Basic carb counting (if applicable per nursing assessment) Plate method Meal planning Recommendations: Follow plate method, consistent carbs and read nutritional labels. Smart Goal: Educational Materials: The patient was provided with the following written educational materials: Planning Healthy Meals, [place] foods Handout Patient Response to instructions: Comprehension of Instructions: Fair Readiness to make changes: Contemplation How confident they feel about making changes:Fair Portions of this note were created using voice recognition software, please excuse any words or phrases that may have been misinterpreted. Medications: Discontinued semaglutide (Ozempic) Discontinued Reason: Doctor's Order 1 mg (0.75 mL) subcut QWEEK 3 mL 4RF Patient Instructions: Incluir actividad diaria regular. ADA recomienda 30 minutos de ejercicio 5 d?as a la semana. P?rdida de peso, hable con el PCP o el cardi?logo antes de comenzar un nuevo plan. Mida el nivel de az?car en la jae seg?n las indicaciones; Ayuno y comida m?s adelfo de 2hpp. Observe las tendencias en los resultados. Utilice los resultados y eval?e c?mo los alimentos, la actividad f?gracia y los medicamentos afectan los resultados de az?car en la jae. Lleve el gluc?metro o CGM a la pr?xima visita. Conocer los medicamentos para la diabetes, coreas acci?n, los efectos secundarios, la eficacia, la toxicidad, la dosis prescrita, el momento y la frecuencia de administraci?n apropiados, el efecto de las dosis olvidadas y retrasadas y las instrucciones de almacenamiento, viaje y seguridad. T?cnicas de resoluci?n de problemas para el seguimiento de episodios de hipo/hiperglucemia y tratamientos. Reducir los comportamientos de reducci?n de riesgos, dejar de fumar, ex?menes regulares de ojos, pies y dentales. Coding Level of Care Code Est Pt Level 1 (58279) Diagnoses Type 2 diabetes mellitus, with long-term current use of insulin E11.9; Z79.4
== END 2024-06-23 13:45 | disposition home or self-care (01) ==
PROVIDERS: PCP Internal Medicine; Visit Provider Registered Nurse Diabetes Educator
DX: E11.9 Type 2 diabetes mellitus without complications (principal); Z79.4 Long term (current) use of insulin

== ENCOUNTER → 2024-06-23 12:31 | Outpatient (BNVA) | payer MEDICARE, MEDICAID, SELFPAY | PROVIDERS: PCP Internal Medicine; Visit Provider Registered Nurse Diabetes Educator | DX: E11.9 Type 2 diabetes mellitus without complications (principal); Z79.4 Long term (current) use of insulin | CPT/HCPCS: 99211 ==

== ENCOUNTER 2024-07-06 12:55 | Outpatient (AMB) | payer MEDICARE, MEDICAID, SELFPAY ==
--- NOTE | 2024-07-06 12:56 | A.OFFVIS_ITS ---
Vital Signs 07/06/24 13:00 Height 5 ft 3 in Weight 211 lb 10.3 oz BMI 37.5 BP 118/76 Blood Pressure Location Rt brachial Position Sitting Pulse 102 H Pulse Source Pulse Oximeter Intake Visit Reasons: T2DM Intake Note: Patient presents today for [facility] follow up visit. Last Diabetic Eye exam: 04/2024 Last Podiatry Visit: Does not see a Golf Sales Manager Random Glucose: 293mg/dL HgA1c: 8.1% 06/02/24 Environmental Health Safety Manager Required: No Accompanied by: Self / Same As Patient Allergies No Known Allergies [No Known Allergies*] Allergy (Verified 07/06/24 12:57) Medication List - Last Reconciled 07/06/24 by Jennifer Villarreal PA-C bisacodyl (Dulcolax (bisacodyl)) 10 mg (2 x 5 mg) PO ONCE 1 day blood sugar diagnostic (FreeStyle Lite Strips) 1 strip miscellaneous TID 30 days buspirone 7.5 mg PO BID [id number]-[id number]-[id number] 50-300-40 mg 1 cap PO Q8H PRN 30 days cholecalciferol (vitamin D3) 50 mcg PO DAILY 30 days citalopram 20 mg PO DAILY dapagliflozin propanediol (Farxiga) 10 mg PO DAILY flash glucose sensor (FreeStyle Blank 2 Sensor kit) As directed change every 14 days insulin lispro (Humalog KwikPen (U-100) Insulin) 10 units subcut TID lancets (FreeStyle Lancets) As directed 3 times a day Lantus Solostar U-100 Insulin (insulin glargine) 40 units (0.4 mL) subcut DAILY 90 days NS latanoprost 0.005% 1 drp ophthalmic (eye) BEDTIME lisinopril 40 mg PO DAILY 90 days lorazepam 0.5 mg PO BID PRN metformin 500 mg PO BID 90 days mirtazapine 30 mg PO BEDTIME paliperidone ER 3 mg PO DAILY pantoprazole 40 mg PO DAILY 90 days pen needle, diabetic (Comfort EZ Pen [place]) As directed injects 4X/day pen needle, diabetic (BD Ultra-Fine Mini Pen Needle) Use 4x daily polyethylene glycol 3350 (Miralax) 238 grams PO ONCE rosuvastatin (Crestor) 40 mg PO DAILY 90 days sumatriptan succinate 25 mg PO Q2-4H PRN 30 days tirzepatide (Mounjaro) 2.5 mg (0.5 mL) subcut QWEEK 4 weeks HPI HPI T2DM: Details: Patient is a 69-year-old female with a significant past medical history of depression, cognitive impairment, hyperlipidemia, hypertension, secondary hyperparathyroidism, type 2 diabetes uncontrolled presenting today for a diabetic follow-up. Her daughter is here today to help with translation. Endo: DM-she was diagnosed with type 2 diabetes about 15 years ago. She is currently on metformin 500 mg twice a day, Lantus 40 units nightly and Humalog 10 units with breakfast, lunch and supper. She is on Farxiga 10 mg daily. She is supposed to be on Trulicity 4.5 mg weekly but this is widely unavailable. She states that even when she was taking the Trulicity her blood sugars were still not very well controlled. She also feels somewhat nauseous with the higher doses of Trulicity. Her insurance did not cover the Ozempic or mounjaro that was ordered. CGM- Blank download shows says sensor is active 9% of the time. Average glucose is 223 with G mi of 8.9% and variability of 30.5%. 27% range with 39% hyperglycemia and 34% very hyperglycemic and no hypoglycemia. Pattern shows increases in glucose after lunch with declining blood sugars overnight. No hypoglycemia-states that she has not had any low blood sugars in quite some time and also would corrected in the past with juice. Complications:, nephropathy, neuropathy, no CVA, no CAD, PVD. She is on an DEON-inhibitor and statin Last ophthalmology evaluation: 05/20/2024 She denies nocturia , polyuria and polydipsia, she denies numbness, tingling, burning pain, blurred vision. CV: Blood pressure today in the office is 118/76. She is on 40 mg of lisinopril daily. Tolerates this well. Cholesterol is controlled with Crestor. Last LDL was WNL but not checked since [facility] Medical History Mild recurrent major depression Physical exam Cognitive impairment Non-proliferative diabetic retinopathy, mild, left eye Hyperparathyroidism due to vitamin D deficiency Osteopenia Obesity (BMI 30-39.9) Non-toxic multinodular goiter USP (current) use of insulin Dyslipidemia Vitamin D deficiency Diabetes type 2, uncontrolled Surgical History H/O lithotripsy S/P CARISSA-BSO Hx of tubal ligation H/O foot surgery History of appendectomy Hx laparoscopic cholecystectomy Family History Mother Diabetes Father Diabetes Social History Housing: Apartment Alcohol intake: never Patient Tobacco Use Status: Former Tobacco user e-Cigarette/Vaping Use: Never Used Second Hand Smoke Exposure: No service: No Current occupational status: unemployed Cognitive needs: No Hearing needs: No Vision needs: Yes Physical Exam Vital Signs: Last Vital Signs Pulse 102 H 07/06/24 13:00 BP 118/76 07/06/24 13:00 BMI result Body Mass Index 37.5 Const Orientation/consciousness: patient oriented x3 Neck Neck: Yes no lymphadenopathy Carotids: no bruits Resp Auscultation: clear to auscultation bilaterally Cardio Rate: regular rate Rhythm: regular rhythm Heart sounds: S1 normal heart sound present and S2 normal heart sound present Peripheral pulses: dorsalis pedis present Neuro General: patient oriented x3, gait normal and no focal motor deficits Results Reviewed Results Reviewed: Laboratory Last Values Glucose (Clinic) 293 mg/dL (60-115) H 07/06/24 13:07 Laboratory Tests 06/19/22 06/19/22 09/24/23 10:15 Unknown 12:25 Sodium 137 Potassium 4.7 Chloride 103 Carbon Dioxide 26 Anion Gap 13 BUN 12 Creatinine 0.74 Estimated GFR > 60 Hgb A1c (Clinic) Triglycerides 89 Cholesterol 129 D LDL Cholesterol, Calc 69 HDL Cholesterol 43 Urine Creatinine 125.37 Urine Microalbumin 80.0 Microalb/Creat Ratio 63.8 06/02/24 09:43 Sodium Potassium Chloride Carbon Dioxide Anion Gap BUN Creatinine Estimated GFR Hgb A1c (Clinic) 8.1 H Triglycerides Cholesterol LDL Cholesterol, Calc HDL Cholesterol Urine Creatinine Urine Microalbumin Microalb/Creat Ratio Assessment & Plan Assessment & Plan (1) Diabetes type 2, uncontrolled: Code(s): E11.65 - Type 2 diabetes mellitus with hyperglycemia Category: Medical Qualifiers: Glycemic state: with hyperglycemia Qualified Code(s): E11.65 - Type 2 diabetes mellitus with hyperglycemia Plan: Will start Ozempic. Will try to get prior Auth for this. She does have renal complications related to the diabetes and would benefit from this. Trulicity is unavailable and she reported nausea with higher dosing. We did discuss risks and benefits and adverse effects of this medication including GI upset. I do not believe the Lantus is holding her as it appears to be wearing off by late afternoon. Will switch to Tresiba. She has issues with remembering to scan. Will switch to Voltaix Blank 3. (2) USP (current) use of insulin: Code(s): Z79.4 - USP (current) use of insulin Category: Medical Plan: As above (3) Hyperlipidemia LDL goal <70: Code(s): E78.5 - Hyperlipidemia, unspecified Category: Medical Plan: Continue Crestor. Will check lipids and LFTs. (4) Essential hypertension: Code(s): I10 - Essential (primary) hypertension Category: Medical Plan: WNL. Continue current regimen. Orders: Orders Comprehensive [place]. Panel Fast Today Jennifer Villarreal PA-C E11.65 - Type 2 diabetes mellitus with hyperglycemia, E78.5 - Hyperlipidemia, unspecified, I10 - Essential (primary) hypertension, Z79.4 - watermelon harvesting supervisor (current) use of insulin Lipid Panel Today Jennifer Villarreal PA-C E11.65 - Type 2 diabetes mellitus with hyperglycemia, E78.5 - Hyperlipidemia, unspecified, I10 - Essential (primary) hypertension, Z79.4 - USP (current) use of insulin Hemoglobin A1c Today Jennifer Villarreal PA-C E11.65 - Type 2 diabetes mellitus with hyperglycemia, E78.5 - Hyperlipidemia, unspecified, I10 - Essential (primary) hypertension, Z79.4 - USP (current) use of insulin Microalbumin, Random (w Creat) Today Jennifer Villarreal PA-C E11.65 - Type 2 diabetes mellitus with hyperglycemia, E78.5 - Hyperlipidemia, unspecified, I10 - Essential (primary) hypertension, Z79.4 - USP (current) use of insulin Medications: New blood-glucose meter,continuous (FreeStyle Blank 3 Marks) Use daily As directed to monitor blood glucose 1 ea 0RF Jennifer Villarreal PA-C semaglutide (Ozempic) for 4 weeks 0.25 mg (0.368 mL) subcut QWEEK 3 mL 2RF Jennifer Villarreal PA-C blood-glucose meter (FreeStyle Lite Meter kit) Use daily As directed to check blood sugars 1 ea 0RF Jennifer Villarreal PA-C E11.22 - Type 2 diabetes mellitus with diabetic chronic kidney disease, E11.9 - Type 2 diabetes mellitus without complications, Z79.4 - watermelon harvesting supervisor (current) use of insulin blood-glucose sensor (FreeStyle Blank 3 Sensor device) Apply every 14 days As directed to monitor blood glucose 2 ea 11RF Jennifer Villarreal PA-C E11.9 - Type 2 diabetes mellitus without complications, Z79.4 - watermelon harvesting supervisor (current) use of insulin insulin degludec (Tresiba FlexTouch U-100 insulin) 40 units (0.4 mL) subcut BEDTIME 30 days 15 mL 3RF Jennifer Villarreal PA-C Changed From insulin lispro (Humalog KwikPen (U-100) Insulin) 10 units (0.1 mL) subcut .before lunch 15 mL 5RF To insulin lispro (Humalog KwikPen (U-100) Insulin) with breakfast, lunch and supper 10 units subcut TID Tramaine Herrmann MD Discontinued Lantus Solostar U-100 Insulin (insulin glargine) Discontinued Reason: Duplicate 40 units (0.4 mL) subcut DAILY 90 days 36 mL 1RF NS E11.65 - Type 2 diabetes mellitus with hyperglycemia Coding Level of Care Code Est Pt Level 4 (48286) Complex EM visit Add On G2211 Diagnoses Uncontrolled type 2 diabetes mellitus with hyperglycemia E11.65 Glycemic state: with hyperglycemia USP (current) use of insulin Z79.4 Hyperlipidemia LDL goal <70 E78.5 Essential hypertension I10
[2024-07-06 13:00] VITALS: BP 118/76; PULSE 102; BMI 37.5
[2024-07-06 13:11] LABS: Glucose, Whole Blood 293 mg/dL (60-115)
== END 2024-07-06 13:46 | disposition home or self-care (01) ==
PROVIDERS: PCP Internal Medicine; Visit Provider Physician Assistant
DX: E11.65 Type 2 diabetes mellitus with hyperglycemia (principal); Z79.4 Long term (current) use of insulin; E78.5 Hyperlipidemia, unspecified; I10 Essential (primary) hypertension
CPT/HCPCS: 99214; G2211

== ENCOUNTER 2024-07-29 15:16 | Outpatient (AMB) | payer MEDICARE, MEDICAID, SELFPAY ==
--- NOTE | 2024-07-29 15:17 | MHC.OFFWIV ---
Intake Vital Signs 07/29/24 15:19 Height 5 ft 3 in Weight 208 lb BMI 36.8 BP 118/78 Blood Pressure Location Lt brachial Position Sitting Pulse 86 Pulse Source Pulse Oximeter Pulse Oximetry (%) 98 Oxygen Delivery Method Room Air Intake Visit Reasons: EP- Fell, Hurt RT toes, Both legs, Both elbows Intake Note: Patient here because she fell on the third step of the porch and has lacerations to the left knee, bilat elbows and right great toe is purple and tingling. Patient Tobacco Use Status: Former Tobacco user Allergies No Known Allergies [No Known Allergies*] Allergy (Verified 07/29/24 15:24) Do you need a note to return to daycare/school/sports/work: No HPI EP- Fell, Hurt RT toes, Both legs, Both elbows HPI Details This note is constructed using voice recognition software. While every effort has been made to ensure accuracy, hair or beauty salon assistant errors may have been included. The patient is a 69 year old female who presents to the clinic today with injury after fall yesterday off the 3rd step support. She fell striking both elbows and left knee, and her right great toe. She then rolled and landed on her back. She reports that her right great toe does bother her some, and her left knee is uncomfortable when she moves it, but denies specifically pain. Her daughter gave her ibuprofen today. [facility] Medical History Mild recurrent major depression Physical exam Cognitive impairment Non-proliferative diabetic retinopathy, mild, left eye Hyperparathyroidism due to vitamin D deficiency Osteopenia Obesity (BMI 30-39.9) Non-toxic multinodular goiter longterm (current) use of insulin Dyslipidemia Vitamin D deficiency Diabetes type 2, uncontrolled Surgical History H/O lithotripsy S/P CARISSA-BSO Hx of tubal ligation H/O foot surgery History of appendectomy Hx laparoscopic cholecystectomy Family History Mother Diabetes Father Diabetes Social History Housing: Apartment Alcohol intake: never Patient Tobacco Use Status: Former Tobacco user e-Cigarette/Vaping Use: Never Used Second Hand Smoke Exposure: No service: No Current occupational status: unemployed Cognitive needs: No Hearing needs: No Vision needs: Yes Review of Systems Const All systems reviewed & are unremarkable except as noted in HPI and below Physical Exam Vital Signs: Last Vital Signs Pulse 86 07/29/24 15:19 BP 118/78 07/29/24 15:19 Pulse Ox 98 07/29/24 15:19 Oxygen Delivery Method Room Air 07/29/24 15:19 BMI result Body Mass Index 36.8 Const General: cooperative, healthy appearing, comfortable, no acute distress and alert Orientation/consciousness: patient oriented x3 Limitations: no limitations Resp Effort & Inspection: normal respiratory effort and able to speak in complete sentences Auscultation: clear to auscultation bilaterally Cardio Jugular venous distension: no JVD Palpation: normal PMI Rate: regular rate Heart sounds: S1 normal heart sound present, S2 normal heart sound present, no click, no gallops, no murmurs and no rubs Skin Other: Abrasions present to bilateral elbows, left knee without discharge, erythema, appearing well cleaned. General skin exam: elasticity normal and turgor normal Neuro General: patient oriented x3 Extrem Other: Right foot and ankle full range of motion. Flexion and extension normal, strength 5/5. Mild ecchymosis to distal phalanx right great toe. General: Yes normal to inspection, Yes full ROM, Yes capillary refill normal and Yes normal exam except as noted Psych Appearance: grossly normal Mental Status: mental status grossly normal Speech and movement: Normal speech and movement present Affect: normal affect Assessment & Plan Assessment & Plan (1) Knee pain, left: Code(s): M25.562 - Pain in left knee Qualifiers: Chronicity: acute Qualified Code(s): M25.562 - Pain in left knee Plan: X-ray ordered to rule out fracture. Advised rest, ice, compression, elevation. Xrays reviewed, no obvious deformity/fracture. (2) Toe pain, right: Code(s): M79.674 - Pain in right toe(s) Plan: X-ray ordered to rule out fracture. Xrays reviewed, no obvious deformity/fracture. Advised rest, ice, elevation, and NSAIDs as needed for pain. Plan See above for full details and plan. Orders: Orders XR knee LT 3V Today M25.562 - Pain in left knee XR foot RT 2V Today M79.676 - Pain in unspecified toe(s) Coding Level of Care Code Est Pt Level 4 (63628) Diagnoses Acute pain of left knee M25.562 Chronicity: acute Toe pain, right M79.674
[2024-07-29 15:19] VITALS: BP 118/78; PULSE 86; O2SAT 98; BMI 36.8
== END 2024-07-29 16:26 | disposition home or self-care (01) ==
PROVIDERS: PCP Internal Medicine; Visit Provider Registered Nurse
DX: M25.562 Pain in left knee (principal); M79.674 Pain in right toe(s)
CPT/HCPCS: 99214

== ENCOUNTER 2024-07-29 15:43 | Outpatient (REF) | payer MEDICARE, MEDICAID, SELFPAY ==
--- NOTE | ~2024-07-29 | XR_ITS ---
EXAMINATION: XR KNEE, LEFT CLINICAL INFORMATION: Fell down, left knee injury and pain COMPARISON: Left knee x-rays on 12/26/2011 TECHNIQUE: Four views of the left knee. FINDINGS: BONES: Bony structures are intact. There is no focal bone destruction or periosteal reaction seen. JOINTS: Alignment of joints is normal. There is mild decrease in medial compartments left knee joint space. SOFT TISSUE: Soft tissue is normal. No radiopaque foreign body or abnormal air collection is seen. XR/XR knee LT 3V IMPRESSION: 1. 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 2. No fracture or dislocation or signs of osteomyelitis are found. Electronically signed by: Barry Mancia MD 07/30/2024 08:04 AM EDT
--- NOTE | ~2024-07-29 | XR_ITS ---
EXAMINATION: XR FOOT, RIGHT CLINICAL INFORMATION: Fell down, right foot injury and pain COMPARISON: Right foot x-rays on 12/26/2011 TECHNIQUE: AP, lateral, and oblique views of the right foot. FINDINGS: BONES: Abnormal transverse radiolucency is seen at the medial base of right great toe distal phalanx. Small plantar calcaneal spur is present. There is no focal bone destruction or periosteal reaction seen. JOINTS: Alignment of joints is normal. SOFT TISSUE: Soft tissue is normal. No radiopaque foreign body or abnormal air collection is seen. XR/XR foot RT 2V IMPRESSION: 1. Interval development of Nondisplaced transverse fracture at the medial base of right great toe distal phalanx. 2. Interval appearance of Small plantar calcaneal spur. Electronically signed by: Barry Mancia MD 07/30/2024 08:02 AM EDT
== END 2024-07-29 15:44 | disposition home or self-care (01) ==
LOC: HO.HMGCX 15:43
PROVIDERS: PCP Internal Medicine; Visit Provider Registered Nurse
DX: M25.562 Pain in left knee (principal); M79.674 Pain in right toe(s)
CPT/HCPCS: 73562; 73620

== ENCOUNTER 2024-08-20 13:46 | Outpatient (AMB) | payer MEDICARE, MEDICAID, SELFPAY ==
--- NOTE | 2024-08-20 13:48 | MHC.PC.OV ---
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 Required: No Accompanied by: Self / Same As Patient Allergies No Known Allergies [No Known Allergies*] Allergy (Verified 08/20/24 14:03) Medication List - Last Reconciled 08/20/24 by Juliet Henry MD bisacodyl (Dulcolax (bisacodyl)) 10 mg (2 x 5 mg) PO ONCE 1 day blood sugar diagnostic (FreeStyle Lite Strips) 1 strip miscellaneous TID 30 days blood-glucose meter (FreeStyle Lite Meter kit) Use daily As directed to check blood sugars blood-glucose meter,continuous (FreeStyle Blank 3 [place]) Use daily As directed to monitor blood glucose blood-glucose sensor (FreeStyle Blank 3 Sensor device) Apply every 14 days As directed to monitor blood glucose buspirone 7.5 mg PO BID ddlvykuhwu-dokqfvhfhiayw-frrp 50-300-40 mg 1 cap PO Q8H PRN 30 days cholecalciferol (vitamin D3) 50 mcg PO DAILY 30 days citalopram 20 mg PO DAILY dapagliflozin propanediol (Farxiga) 10 mg PO DAILY exenatide microspheres ER (Bydureon BCise) 2 mg (0.85 mL) subcut QWEEK flash glucose sensor (FreeStyle Blank 2 Sensor kit) As directed change every 14 days insulin degludec (Tresiba FlexTouch U-100 insulin) 40 units (0.4 mL) subcut BEDTIME 30 days insulin lispro (Humalog KwikPen (U-100) Insulin) 10 units (0.1 mL) subcut TID 30 days lancets (FreeStyle Lancets) As directed 3 times a day latanoprost 0.005% 1 drp ophthalmic (eye) BEDTIME lisinopril 40 mg PO DAILY 90 days lorazepam 0.5 mg PO BID PRN metformin 500 mg PO BID 90 days mirtazapine 30 mg PO BEDTIME paliperidone ER 3 mg PO DAILY pantoprazole 40 mg PO DAILY 90 days pen needle, diabetic (Comfort EZ Pen [place]) As directed injects 4X/day pen needle, diabetic (BD Ultra-Fine Mini Pen Needle) Use 4x daily polyethylene glycol 3350 (Miralax) 238 grams PO ONCE rosuvastatin (Crestor) 40 mg PO DAILY 90 days sumatriptan succinate 25 mg PO Q2-4H PRN 30 days Tobacco use date assessed: 08/20/24 Fall risk assessment: 1 Fall in past year Last assessed Fall Risk: 08/20/24 Dental Screening Dental Screen Date: 08/20/24 Did you have a dental visit in the last 12 months?: No Did you have a dental problem in the last 6 months where you did not have access to dental care?: No Was dental information given to patient?: Patient has dentist HPI HPI Comments History of Present Illness Details This is a 69-year-old female with mild recurrent major depression and diabetes mellitus type 2 on long-term current use of insulin that comes accompanied by daughter for her physical exam. Depression has mildly improved and this is follow by Psychiatry. A1c also improved but not on goal and this is follow by Endocrinology. Diabetic eye exam was last month. Mammogram done 2023 was normal. Colonoscopy done 2018 showed a poor prep and had to be repeated within 3 years but she declines colonoscopy or Cologuard or any type of test to screen for colon cancer. No chest pain or shortness on breath. She is obese with a BMI of 36.1 and was advised to do diet and exercise. She has bipolar disorder follow by Psychiatry. Has cognitive impairment and once a referral for Neurology. Had a fall last month and hit her knee and a. 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 Dyslipidemia Vitamin D deficiency Diabetes type 2, uncontrolled Surgical History H/O lithotripsy S/P CARISSA-BSO Hx of tubal ligation H/O foot surgery History of appendectomy Hx laparoscopic cholecystectomy Family History Mother Diabetes Father Diabetes Social History Housing: Apartment Alcohol intake: never Patient Tobacco Use Status: Former Tobacco user e-Cigarette/Vaping Use: Never Used Second Hand Smoke Exposure: No service: No Current occupational status: unemployed Cognitive needs: No Hearing needs: No Vision needs: Yes Questionnaire PHQ-9 Over the last 2 weeks, how often have you been bothered by any of the following problems? 1. Little interest or pleasure in doing things: nearly every day 2. Feeling down, depressed, or hopeless: not at all 3. Trouble falling or staying asleep, or sleeping too much: nearly every day 4. Feeling tired or having little energy: nearly every day 5. Poor appetite or overeating: several days 6. Feeling bad about yourself - or that you are a failure or have let yourself or your family down: not at all 7. Trouble concentrating on things, such as reading the newspaper or watching television: not at all 8. Moving or speaking so slowly that other people could have noticed. Or the opposite - being so fidgety or restless that you have been moving around a lot more than usual: not at all 9. Thoughts that you would be better off or of hurting yourself in some way: not at all Total score: 10 Depression Screening Interpretation: Positive Depression Screening Follow-up: Existing condition, In treatment, Community Mental Health Worker F/U and Follow-up Visit Requested Depression Screening Done: Yes 44487 - PHQ-9 Billing: Yes Source: Developed by Drs. Tramaine Cooper, Octavia Lau, Abiodun Mendes and colleagues, with an educational samir from [email or web address]. Thrive Questionnaire Date Thrive assessed: 08/20/24 I am a: Patient What is your living situation today?: I have a steady place to live Within the past 12 months, did the food you bought not last and you didn't have the money to get more?: Often true Within the past 12 months, did you worry whether your food would run out before you got money to buy more?: Never true Do you have trouble paying for medicines?: No Do you have trouble getting transportation to medical appointments?: No Do you have trouble paying your heating and electricity bill?: I choose not to answer this question Do you have trouble taking care of your child, family member or friend?: No Do you have trouble with day-to-day activities such as bathing, preparing meals, shopping, managing finances, etc.?: I choose not to answer this question Are you currently unemployed and looking for a job?: No Are you interested in more education?: No Please select the resources that you would like help with: None Currently or been in a relationship where the following occur: No concerns reported THRIVE Score: 1 AUDIT C Alcohol Use Questionnaire (AUDIT-C) 1. How often do you have a drink containing alcohol?: Never Total Score: 0 Score Reviewed/Action Taken: No SIENNA-7 AMB Questionnaire SIENNA-7 Date SIENNA - 7 assessed: 08/20/24 Feeling nervous, anxious, or on edge: 1 = Several days Not being able to stop or control worryin = Several days Worrying too much about different things: 1 = Several days Trouble relaxin = Several days Being so restless that it is hard to sit still: 0 = Not at all Becoming easily annoyed or irritable: 0 = Not at all Feeling afraid as if something awful might happen: 0 = Not at all Total SIENNA-7 score (0-4 normal; 5-9 mild; 10-14 moderate; 15-21 severe): 4 Source: Developed by Drs. Tramaine Cooper, Octavia Lau, Abiodun Mendes and colleagues, with an educational samir from [email or web address]. SIENNA-7 Assessment Billing SIENNA-7 Assessment Tool: SIENNA-7 Assessment 70946 Review of Systems Const All systems reviewed & are unremarkable except as noted in HPI and below Card Denies chest pain at rest, Denies chest pain with activity, Denies edema, Denies irregular heart rhythm, Denies claudication, Denies dyspnea, Denies dyspnea on exertion, Denies orthopnea, Denies paroxysmal nocturnal dyspnea and Denies slow heart rate Resp Denies cough, Denies dyspnea and Denies dyspnea on exertion Physical exam (Primary Care) Vital Signs: Last Vital Signs BP 112/68 08/20/24 13:50 BMI result Body Mass Index 36.1 BMI Assessment/Plan discussion: High BMI High, discussed plan: lifestyle, weight reduction, dietary and physical activity Tobacco/Smoking Status: Tobacco use Status Tobacco use date assessed 08/20/24 08/20/24 13:55 Patient Tobacco Use Status Former Tobacco user 08/20/24 13:55 e-Cigarette/Vaping Use Never Used 08/20/24 13:55 PHQ-9: PHQ-9 Score PHQ-9: Total score 10 08/20/24 15:45 Depression Screening Interpretation: Positive Depression Screening Follow-up: Existing condition, In treatment, Community Mental Health Worker F/U and Follow-up Visit Requested Thrive Assessment: Date of Thrive Assessment Date Thrive assessed 08/20/24 08/20/24 13:55 Currently or been in a relationship where the following occur: No concerns reported HENMT Head: Yes normal to inspection, Yes normocephalic and Yes atraumatic Ears: external ears normal Eyes General: appearance normal, both eyes and all related structures Eyelids: Yes eyelids normal Conjunctivae: conjunctivae normal Neck Neck: Yes normal visual inspection and Yes supple Resp Effort & Inspection: normal respiratory effort Auscultation: clear to auscultation bilaterally Cardio Jugular venous distension: no JVD Rate: regular rate Rhythm: regular rhythm Heart sounds: S1 normal heart sound present and S2 normal heart sound present GI Inspection: Yes normal to inspection Palpation (GI): Soft to palpation and nontender Auscultation: normal bowel sounds Skin General skin exam: no rashes or lesions noted Neuro General: no focal motor deficits Extrem General: Yes full ROM Psych Appearance: grossly normal Assessment and Plan Assessment & Plan (1) Physical exam: Code(s): Z00.00 - Encounter for general adult medical examination without abnormal findings Plan: Repeat in a year. (2) Mild recurrent major depression: Code(s): F33.0 - Major depressive disorder, recurrent, mild Plan: Follow-up with psychiatry. 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 Follow-up with endocrinology. A1c goal is equal or less than 7%. (4) Cognitive impairment: Code(s): R41.89 - Other symptoms and signs involving cognitive functions and awareness Plan: Follow-up with Neurology. (5) Bipolar disorder: Code(s): F31.9 - Bipolar disorder, unspecified Plan: Follow-up with psychiatry. Orders: Orders Lipid Panel Today E78.5 - Hyperlipidemia, unspecified Microalbumin, Random (w Creat) Today R80.9 - Proteinuria, unspecified T Spot TB Today Z11.1 - Encounter for screening for respiratory tuberculosis Comprehensive [place]. Panel Fast Today F33.0 - Major depressive disorder, recurrent, mild Referrals Podiatry Referral E11.9 - Type 2 diabetes mellitus without complications, Z79.4 - intermodal dispatcher (current) use of insulin Neurology Referral R41.89 - Other symptoms and signs involving cognitive functions and awareness Review Patient declined Colonoscopy: 08/20/24 Patient declined Colon Cancer Screen Lab: 08/20/24 Coding Level of Care Code Est Pt Level 3 (07802) Est Pt Prev Care >65y(61425) Diagnoses Physical exam Z00.00 Mild recurrent major depression F33.0 Type 2 diabetes mellitus, with long-term current use of insulin E11.9; Z79.4 Cognitive impairment R41.89 Bipolar disorder F31.9 Additional Codes SIENNA-7 Assessment Billing - SIENNA-7 Assessment Tool: SIENNA-7 Assessment 57145 ([id number]) Time Spent (min) 33
[2024-08-20 13:50] VITALS: BP 112/68; BMI 36.1
== END 2024-08-20 14:21 | disposition home or self-care (01) ==
PROVIDERS: PCP Internal Medicine; Visit Provider Internal Medicine
DX: Z00.00 Encounter for general adult medical examination without abnormal findings (principal); F33.0 Major depressive disorder, recurrent, mild; E11.9 Type 2 diabetes mellitus without complications; Z79.4 Long term (current) use of insulin; F31.9 Bipolar disorder, unspecified; R41.89 Other symptoms and signs involving cognitive functions and awareness

== ENCOUNTER → 2024-08-20 13:46 | Outpatient (BNVA) | payer MEDICARE, MEDICAID, SELFPAY | PROVIDERS: PCP Internal Medicine; Visit Provider Internal Medicine | DX: Z00.00 Encounter for general adult medical examination without abnormal findings (principal); F33.0 Major depressive disorder, recurrent, mild; R41.89 Other symptoms and signs involving cognitive functions and awareness; E11.9 Type 2 diabetes mellitus without complications; Z79.4 Long term (current) use of insulin | CPT/HCPCS: 96127 ==

== ENCOUNTER 2024-10-05 13:04 | Outpatient (AMB) | payer MEDICARE, MEDICAID, SELFPAY ==
[2024-10-05 13:09] VITALS: BP 150/76; PULSE 106; BMI 37.6
--- NOTE | 2024-10-05 13:09 | MHC.OFFVIS ---
Vital Signs 10/05/24 13:09 10/05/24 13:45 Height 5 ft 3 in Weight 212 lb 4.882 oz BMI 37.6 BP 150/76 H 122/68 Blood Pressure Location Lt brachial Lt brachial Position Sitting Supine Pulse 106 H Pulse Source Pulse Oximeter Intake Visit Reasons: F/u T2DM Intake Note: Patient presents today for D2MT follow up visit. Last Diabetic Eye exam: 09/2024 Last Podiatry Visit: Doesn't have one Random Glucose: 398 mg/dl HgA1c: 8.9% Motor Coach Tour Operator Required: Yes Motor Coach Tour Operator Language: [place] Machine Operator Services: Motor Coach Tour Operator Offered & Declined Accompanied by: Daughter Allergies No Known Allergies [No Known Allergies*] Allergy (Verified 10/05/24 13:15) Medication List - Last Reconciled 10/05/24 by Jennifer Villarreal PA-C bisacodyl (Dulcolax (bisacodyl)) 10 mg (2 x 5 mg) PO ONCE 1 day blood sugar diagnostic (FreeStyle Lite Strips) 1 strip miscellaneous TID 30 days blood-glucose meter (FreeStyle Lite Meter kit) Use daily As directed to check blood sugars blood-glucose meter,continuous (FreeStyle Blank 3 [place]) Use daily As directed to monitor blood glucose blood-glucose sensor (FreeStyle Blank 3 Sensor device) Apply every 14 days As directed to monitor blood glucose buspirone 7.5 mg PO BID [id number]-[id number] 50-300-40 mg 1 cap PO Q8H PRN 30 days cholecalciferol (vitamin D3) 50 mcg PO DAILY 30 days citalopram 20 mg PO DAILY dapagliflozin propanediol (Farxiga) 10 mg PO DAILY exenatide microspheres ER (Bydureon BCise) 2 mg (0.85 mL) subcut QWEEK flash glucose sensor (FreeStyle Blank 2 Sensor kit) As directed change every 14 days insulin degludec (Tresiba FlexTouch U-100 insulin) 40 units (0.4 mL) subcut BEDTIME 30 days insulin lispro (Humalog KwikPen (U-100) Insulin) 10 units (0.1 mL) subcut TID 30 days lancets (FreeStyle Lancets) As directed 3 times a day latanoprost 0.005% 1 drp ophthalmic (eye) BEDTIME lisinopril 40 mg PO DAILY 90 days lorazepam 0.5 mg PO BID PRN metformin 500 mg PO BID 90 days mirtazapine 40 mg PO BEDTIME paliperidone ER 3 mg PO DAILY pantoprazole 40 mg PO DAILY 90 days pen needle, diabetic (Comfort EZ Pen [place]) As directed injects 4X/day pen needle, diabetic (BD Ultra-Fine Mini Pen Needle) Use 4x daily polyethylene glycol 3350 (Miralax) 238 grams PO ONCE rosuvastatin (Crestor) 40 mg PO DAILY 90 days sumatriptan succinate 25 mg PO Q2-4H PRN 30 days HPI HPI F/u T2DM: Details: Patient is a 69-year-old female with a significant past medical history of depression, cognitive impairment, hyperlipidemia, hypertension, secondary hyperparathyroidism, type 2 diabetes uncontrolled presenting today for a diabetic follow-up. Her daughter is here today to help with translation. Endo: DM-she was diagnosed with type 2 diabetes around 2009. She is currently on metformin 500 mg twice a day, Lantus 40 units nightly and Humalog 10 units with breakfast, lunch and supper. She is on Farxiga 10 mg daily. Her A1c today is 8.9. It was previously 8.1. She has tried trulicity and Bydureon BCise without improvement of glucose. The trulicity caused nausea. She gets bruising and pain with the injection of BCise. She states that it feels very ineffective and the shots are very painful for her. She does not know why as giving herself insulin and trying Trulicity in the past was not painful. She does not tolerate higher doses of metformin. CGM- Blank download shows says sensor is active 59% of the time. Average glucose is 224 with variability of 29.5%. 30% range with 39% hyperglycemia and 31% very hyperglycemic and no hypoglycemia. Pattern shows increases in glucose after lunch with declining blood sugars overnight. No hypoglycemia-states that she has not had any low blood sugars in quite some time and also would corrected in the past with juice. Complications:, nephropathy, neuropathy, no CVA, no CAD, PVD. She is on an DEON-inhibitor and statin Last ophthalmology evaluation: 05/20/2024 She denies nocturia , polyuria and polydipsia, she denies numbness, tingling, burning pain, blurred vision. CV: Blood pressure today in the office is 122/68. She is on 40 mg of lisinopril daily. Tolerates this well. Cholesterol is controlled with Crestor. 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 Dyslipidemia Vitamin D deficiency Diabetes type 2, uncontrolled Surgical History H/O lithotripsy S/P CARISSA-BSO Hx of tubal ligation H/O foot surgery History of appendectomy Hx laparoscopic cholecystectomy Family History Mother Diabetes Father Diabetes Social History Housing: Apartment Alcohol intake: never Patient Tobacco Use Status: Former Tobacco user e-Cigarette/Vaping Use: Never Used Second Hand Smoke Exposure: No service: No Current occupational status: unemployed Cognitive needs: No Hearing needs: No Vision needs: Yes Physical Exam Vital Signs: Last Vital Signs Pulse 106 H 10/05/24 13:09 BP 150/76 H 10/05/24 13:09 BMI result Body Mass Index 37.6 Const Orientation/consciousness: patient oriented x3 Neck Neck: Yes no lymphadenopathy Carotids: no bruits Resp Auscultation: clear to auscultation bilaterally Cardio Rate: regular rate Rhythm: regular rhythm Heart sounds: S1 normal heart sound present and S2 normal heart sound present Peripheral pulses: dorsalis pedis present Neuro General: patient oriented x3, gait normal and no focal motor deficits Results AMB Hemoglobin A1c AMB Hemoglobin A1c 8.9 % Last Edit by ANTOINE Leung on 10/05/24 13:29 Results Reviewed Results Reviewed: Laboratory Last Values Glucose (Clinic) 398 mg/dL (60-115) H* 10/05/24 13:18 Laboratory Tests 06/19/22 06/19/22 09/24/23 10:15 Unknown 12:25 Sodium 137 Potassium 4.7 Chloride 103 Carbon Dioxide 26 Anion Gap 13 BUN 12 Creatinine 0.74 Estimated GFR > 60 Glucose (Clinic) Hgb A1c (Clinic) LDL Cholesterol, Calc 69 Urine Creatinine 125.37 Urine Microalbumin 80.0 Microalb/Creat Ratio 63.8 09/24/23 06/02/24 06/02/24 13:06 09:40 09:43 Sodium Potassium Chloride Carbon Dioxide Anion Gap BUN Creatinine Estimated GFR Glucose (Clinic) 213 H Hgb A1c (Clinic) 8.9 H 8.1 H LDL Cholesterol, Calc Urine Creatinine Urine Microalbumin Microalb/Creat Ratio 07/06/24 13:07 Sodium Potassium Chloride Carbon Dioxide Anion Gap BUN Creatinine Estimated GFR Glucose (Clinic) 293 H Hgb A1c (Clinic) LDL Cholesterol, Calc Urine Creatinine Urine Microalbumin Microalb/Creat Ratio Assessment & Plan Assessment & Plan (1) Diabetes type 2, uncontrolled: Code(s): E11.65 - Type 2 diabetes mellitus with hyperglycemia Category: Medical Qualifiers: Glycemic state: with hyperglycemia Qualified Code(s): E11.65 - Type 2 diabetes mellitus with hyperglycemia Plan: Increase Tresiba to 50 units. Continue with the Humalog and Farxiga. We will switch from bydureon bcise to ozempic. Failed bydureon (pain/bruising with each injection, no glucose improvement) and trulicity (nausea). She will complete labs prior to next appointment. We will follow up in a few weeks to be reassessed. Sooner if needed. (2) Essential hypertension: Code(s): I10 - Essential (primary) hypertension Category: Medical Plan: WNL. Continue current regimen (3) Dyslipidemia: Code(s): E78.5 - Hyperlipidemia, unspecified Category: Medical Plan: Advised to complete lipids and LFTs. Orders: Orders AMB Hemoglobin A1c Today E11.65 - Type 2 diabetes mellitus with hyperglycemia, Z13.9 - Encounter for screening, unspecified Medications: New semaglutide (Ozempic) 0.25 mg (0.368 mL) subcut QWEEK 3 mL 1RF Changed From insulin degludec (Tresiba FlexTouch U-100 insulin) 40 units (0.4 mL) subcut BEDTIME 30 days 15 mL 3RF To insulin degludec (Tresiba FlexTouch U-100 insulin) 50 units (0.5 mL) subcut BEDTIME 30 days 15 mL 3RF Discontinued exenatide microspheres ER (Byfany Ortez) Discontinued Reason: Doctor's Order 2 mg (0.85 mL) subcut QWEEK 10.2 mL 1RF Coding Level of Care Code Est Pt Level 4 (04180) Complex EM visit Add On G2211 Diagnoses Uncontrolled type 2 diabetes mellitus with hyperglycemia E11.65 Glycemic state: with hyperglycemia Essential hypertension I10 Dyslipidemia E78.5
[2024-10-05 13:23] LABS: Glucose, Whole Blood 398 mg/dL (60-115)
[2024-10-05 13:45] VITALS: BP 122/68
== END 2024-10-05 13:49 | disposition home or self-care (01) ==
LOC: HO.ENCR 13:07
PROVIDERS: PCP Internal Medicine; Visit Provider Physician Assistant
DX: E11.65 Type 2 diabetes mellitus with hyperglycemia (principal); I10 Essential (primary) hypertension; E78.5 Hyperlipidemia, unspecified; Z13.9 Encounter for screening, unspecified

== ENCOUNTER → 2024-10-05 13:04 | Outpatient (BNVA) | payer MEDICARE, MEDICAID, SELFPAY | PROVIDERS: PCP Internal Medicine; Visit Provider Physician Assistant | DX: E11.65 Type 2 diabetes mellitus with hyperglycemia (principal); E78.5 Hyperlipidemia, unspecified; I10 Essential (primary) hypertension | CPT/HCPCS: 82947; 83036; 99212 ==

== ENCOUNTER 2024-11-02 09:55 | Outpatient (AMB) | payer MEDICARE, MEDICAID, SELFPAY ==
[2024-11-02 09:59] VITALS: BP 90/62; PULSE 101; BMI 37.3
--- NOTE | 2024-11-02 09:59 | A.OFFVIS_ITS ---
Vital Signs 11/02/24 09:59 Height 5 ft 3 in Weight 210 lb 12.191 oz BMI 37.3 BP 90/62 Blood Pressure Location Lt brachial Position Sitting Pulse 101 H Pulse Source Pulse Oximeter Intake Visit Reasons: DM/LVM Intake Note: Patient presents today for D2MT follow up visit. Last Diabetic Eye exam: 10/2024 Last Podiatry Visit: Has upcoming appt in December. Random Glucose: 323 mg/dl HgA1c: 8.9% 10/05/24 Configurator Required: Yes Configurator Language: Head Usher Services: Configurator Offered & Declined Accompanied by: Daughter Allergies No Known Allergies [No Known Allergies*] Allergy (Verified 11/02/24 10:03) Medication List - Last Reconciled 11/02/24 by Jennifer Villarreal PA-C bisacodyl (Dulcolax (bisacodyl)) 10 mg (2 x 5 mg) PO ONCE 1 day blood sugar diagnostic (FreeStyle Lite Strips) 1 strip miscellaneous TID 30 days blood-glucose meter (FreeStyle Lite Meter kit) Use daily As directed to check blood sugars blood-glucose meter,continuous (FreeStyle Blank 3 [place]) Use daily As directed to monitor blood glucose blood-glucose sensor (FreeStyle Blank 3 Sensor device) Apply every 14 days As directed to monitor blood glucose buspirone 7.5 mg PO BID [id number]-vjjnsfktcvevu-ecxz 50-300-40 mg 1 cap PO Q8H PRN 30 days cholecalciferol (vitamin D3) 50 mcg PO DAILY 30 days citalopram 20 mg PO DAILY dapagliflozin propanediol (Farxiga) 10 mg PO DAILY flash glucose sensor (FreeStyle Blank 2 Sensor kit) As directed change every 14 days insulin degludec (Tresiba FlexTouch U-100 insulin) 60 units (0.6 mL) subcut BEDTIME 30 days insulin lispro (Humalog KwikPen (U-100) Insulin) 10 units (0.1 mL) subcut TID 30 days lancets (FreeStyle Lancets) As directed 3 times a day latanoprost 0.005% 1 drp ophthalmic (eye) BEDTIME lisinopril 40 mg PO DAILY 90 days lorazepam 0.5 mg PO BID PRN metformin 500 mg PO BID 90 days mirtazapine 40 mg PO BEDTIME paliperidone ER 3 mg PO DAILY pantoprazole 40 mg PO DAILY 90 days pen needle, diabetic (Comfort EZ Pen [place]) As directed injects 4X/day pen needle, diabetic (BD Ultra-Fine Mini Pen Needle) Use 4x daily polyethylene glycol 3350 (Miralax) 238 grams PO ONCE ramelteon 8 mg PO BEDTIME rosuvastatin (Crestor) 40 mg PO DAILY 90 days semaglutide (Ozempic) 1 mg (0.75 mL) subcut QWEEK sumatriptan succinate 25 mg PO Q2-4H PRN 30 days HPI HPI DM/LVM: Details: Patient is a 69-year-old female with a significant past medical history of depression, cognitive impairment, hyperlipidemia, hypertension, secondary hyperparathyroidism, type 2 diabetes uncontrolled presenting today for a diabetic follow-up. Her daughter is here today to help with translation. Endo: DM-she was diagnosed with type 2 diabetes around 2009. She is currently on metformin 500 mg twice a day, Lantus 40 units nightly and Humalog 10 units with breakfast, lunch and supper, She is on Farxiga 10 mg daily, and was started on ozempic 0.5 mg weekly. Her A1c last time 8.9. It was previously 8.1. She is tolerating the Ozempic without difficulty. She has tried trulicity and Bydureon BCise without improvement of glucose. The trulicity caused nausea. She gets bruising and pain with the injection of BCise. She states that it feels very ineffective and the shots are very painful for her. She does not know why as giving herself insulin and trying Trulicity in the past was not painful. She does not tolerate higher doses of metformin. CGM- Blank download shows says sensor is active 56% of the time. Average glucose is 212 with variability of 28.5%. 33% range with 41% hyperglycemia and 26% very hyperglycemic and no hypoglycemia. Pattern shows increases in glucose after lunch with declining blood sugars overnight. No hypoglycemia-states that she has not had any low blood sugars in quite some time and also would corrected in the past with juice. Complications:, nephropathy, neuropathy, no CVA, no CAD, PVD. She is on an DEON-inhibitor and statin Last ophthalmology evaluation: 05/20/2024 She denies nocturia , polyuria and polydipsia, she denies numbness, tingling, burning pain, blurred vision. CV: Blood pressure today in the office is 90/62. She has any water yet today. She states that she just woke up and she thinks that is why the lower. When they check it at home it is normal. She is on 40 mg of lisinopril daily. Tolerates this well. Cholesterol is controlled with Crestor. Last LDL was WNL but not checked since 2021 [facility] Medical History Mild recurrent major depression Physical exam Cognitive impairment Non-proliferative diabetic retinopathy, mild, left eye Hyperparathyroidism due to vitamin D deficiency Osteopenia Obesity (BMI 30-39.9) Non-toxic multinodular goiter prison (current) use of insulin Dyslipidemia Vitamin D deficiency Diabetes type 2, uncontrolled Surgical History H/O lithotripsy S/P CARISSA-BSO Hx of tubal ligation H/O foot surgery History of appendectomy Hx laparoscopic cholecystectomy Family History Mother Diabetes Father Diabetes Social History Housing: Apartment Alcohol intake: never Patient Tobacco Use Status: Former Tobacco user e-Cigarette/Vaping Use: Never Used Second Hand Smoke Exposure: No service: No Current occupational status: unemployed Cognitive needs: No Hearing needs: No Vision needs: Yes Physical Exam Vital Signs: Last Vital Signs Pulse 101 H 11/02/24 09:59 BP 90/62 11/02/24 09:59 BMI result Body Mass Index 37.3 Const Orientation/consciousness: patient oriented x3 Neck Neck: Yes no lymphadenopathy Thyroid: Thyroid normal Carotids: no bruits Resp Auscultation: clear to auscultation bilaterally Cardio Rate: regular rate Rhythm: regular rhythm Heart sounds: S1 normal heart sound present and S2 normal heart sound present Peripheral pulses: dorsalis pedis present Neuro General: patient oriented x3, gait normal and no focal motor deficits Extrem Other: Monofilament sensation intact bilaterally. Vibratory sensation intact bilaterally. Skin intact. General: Yes normal to inspection Results Reviewed Results Reviewed: Laboratory Tests 09/24/23 06/02/24 10/05/24 13:06 09:43 13:22 Hgb A1c (Clinic) 8.9 H 8.1 H 8.9 H Assessment & Plan Assessment & Plan (1) Diabetes type 2, uncontrolled: Code(s): E11.65 - Type 2 diabetes mellitus with hyperglycemia Category: Medical Qualifiers: Glycemic state: with hyperglycemia Qualified Code(s): E11.65 - Type 2 diabetes mellitus with hyperglycemia Plan: increase tresiba to 60 units tolerating ozempic well, increase to 1 mg weekly continue metformin 500 mg bid, farxiga 10 mg, humalog 10 units tid refilled testing supplies Reviewed rule of 15 Advised patient to complete labs. Follow up in a couple of months. Sooner if needed. Patient understands and agrees with plan. (2) Essential hypertension: Code(s): I10 - Essential (primary) hypertension Category: Medical Plan: Monitor blood pressure at home his blood pressures on the lower side today. Asymptomatic. (3) Dyslipidemia: Code(s): E78.5 - Hyperlipidemia, unspecified Category: Medical Plan: Continue current regimen. Advised patient to complete labs as directed. Medications: New semaglutide (Ozempic) 1 mg (0.75 mL) subcut QWEEK 3 mL 4RF lancets (FreeStyle Lancets) use daily as directed to check blood glucose 100 ea 3RF Changed From insulin degludec (Tresiba FlexTouch U-100 insulin) 50 units (0.5 mL) subcut BEDTIME 30 days 15 mL 3RF To insulin degludec (Tresiba FlexTouch U-100 insulin) 60 units (0.6 mL) subcut BEDTIME 30 days 18 mL 3RF Refilled blood sugar diagnostic (FreeStyle Lite Strips) 1 strip miscellaneous TID 30 days 100 strips 4RF E11.65 - Type 2 diabetes mellitus with hyperglycemia blood-glucose meter (FreeStyle Lite Meter kit) Use daily As directed to check blood sugars 1 ea 0RF E11.22 - Type 2 diabetes mellitus with diabetic chronic kidney disease, E11.9 - Type 2 diabetes mellitus without complications, Z79.4 - prison (current) use of insulin flash glucose sensor (FreeStyle Blank 2 Sensor kit) As directed change every 14 days 2 ea 5RF E11.65 - Type 2 diabetes mellitus with hyperglycemia, E11.9 - Type 2 diabetes mellitus without complications, Z79.4 - rodent exterminator (current) use of insulin insulin degludec (Tresiba FlexTouch U-100 insulin) 60 units (0.6 mL) subcut BEDTIME 30 days 18 mL 3RF flash glucose sensor (FreeStyle Blank 2 Sensor kit) As directed change every 14 days 2 ea 5RF E11.65 - Type 2 diabetes mellitus with hyperglycemia, E11.9 - Type 2 diabetes mellitus without complications, Z79.4 - rodent exterminator (current) use of insulin Discontinued semaglutide (Ozempic) Discontinued Reason: Doctor's Order 0.25 mg (0.368 mL) subcut QWEEK 3 mL 1RF Patient Instructions: Increase Tresiba to 60 units daily, continue Humalog 10 units 3 times a day with meals, increase Ozempic to 1 mg once a week, continue Farxiga 10 mg daily, metformin 500 mg twice a day. Coding Level of Care Code Est Pt Level 4 (26073) Complex EM visit Add On G2211 Diagnoses Uncontrolled type 2 diabetes mellitus with hyperglycemia E11.65 Glycemic state: with hyperglycemia Essential hypertension I10 Dyslipidemia E78.5
[2024-11-02 10:10] LABS: Glucose, Whole Blood 323 mg/dL (60-115)
== END 2024-11-02 10:26 | disposition home or self-care (01) ==
PROVIDERS: PCP Internal Medicine; Visit Provider Physician Assistant
DX: E11.65 Type 2 diabetes mellitus with hyperglycemia (principal); I10 Essential (primary) hypertension; E78.5 Hyperlipidemia, unspecified

== ENCOUNTER → 2024-11-02 09:55 | Outpatient (BNVA) | payer MEDICARE, MEDICAID, SELFPAY | PROVIDERS: PCP Internal Medicine; Visit Provider Physician Assistant | DX: E11.65 Type 2 diabetes mellitus with hyperglycemia (principal); I10 Essential (primary) hypertension; E78.5 Hyperlipidemia, unspecified | CPT/HCPCS: 82947; 99212 ==

== ENCOUNTER 2025-01-04 13:22 | Outpatient (AMB) | payer MEDICARE, MEDICAID, SELFPAY ==
--- NOTE | 2025-01-04 13:37 | A.OFFPC_ITS ---
Vital Signs 01/04/25 13:41 Height 5 ft 3 in Weight 211 lb BMI 37.4 BP 92/66 Blood Pressure Location Lt brachial Position Sitting Pulse 106 H Pulse Source Pulse Oximeter Pulse Oximetry (%) 97 Oxygen Delivery Method Room Air Intake Visit Reasons: dm Intake Note: Patient here for a follow up DM Assistant Project Engineer Required: Yes Assistant Project Engineer Language: Mortgage Banker Name: Juliet Henry MD Information Interpreted: non-clinical & clinical Accompanied by: Daughter Allergies No Known Allergies [No Known Allergies*] Allergy (Verified 01/04/25 13:57) Medication List - Last Reconciled 01/04/25 by Juliet Henry MD blood sugar diagnostic (FreeStyle Lite Strips) 1 strip miscellaneous TID 30 days blood-glucose meter (FreeStyle Lite Meter kit) Use daily As directed to check blood sugars blood-glucose meter,continuous (FreeStyle Blank 3 Clear [place]) Use daily As directed to monitor blood glucose blood-glucose sensor (FreeStyle Blank 3 Sensor device) Apply every 14 days As directed to monitor blood glucose buspirone 7.5 mg PO BID hyxqoevnyb-zyxrzvsflshcd-goip 50-300-40 mg 1 cap PO Q8H PRN 30 days cholecalciferol (vitamin D3) 50 mcg PO DAILY 30 days citalopram 20 mg PO DAILY dapagliflozin propanediol (Farxiga) 10 mg PO DAILY flash glucose sensor (FreeStyle Blank 2 Sensor kit) As directed change every 14 days insulin degludec (Tresiba FlexTouch U-100 insulin) 60 units (0.6 mL) subcut BEDTIME 30 days insulin lispro (Humalog KwikPen (U-100) Insulin) 10 units (0.1 mL) subcut TID 30 days lancets (FreeStyle Lancets) As directed 3 times a day lancets (FreeStyle Lancets) use daily as directed to check blood glucose latanoprost 0.005% 1 drp ophthalmic (eye) BEDTIME lisinopril 40 mg PO DAILY 90 days lorazepam 0.5 mg PO BID PRN metformin 500 mg PO BID 90 days mirtazapine 40 mg PO BEDTIME paliperidone ER 3 mg PO DAILY pantoprazole 40 mg PO DAILY 90 days pen needle, diabetic (Comfort EZ Pen [place]) As directed injects 4X/day pen needle, diabetic (BD Ultra-Fine Mini Pen Needle) Use 4x daily polyethylene glycol 3350 (Miralax) 238 grams PO ONCE ramelteon 8 mg PO BEDTIME rosuvastatin (Crestor) 40 mg PO DAILY 90 days semaglutide (Ozempic) 1 mg (0.75 mL) subcut QWEEK sumatriptan succinate 25 mg PO Q2-4H PRN 30 days Tobacco use date assessed: 01/04/25 Fall risk assessment: No Falls in past year Last assessed Fall Risk: 01/04/25 Dental Screening Dental Screen Date: 01/04/25 Did you have a dental visit in the last 12 months?: No Did you have a dental problem in the last 6 months where you did not have access to dental care?: No Was dental information given to patient?: Patient has dentist HPI HPI Comments History of Present Illness Details The patient is a 69-year-old female presenting with migraines, primarily concerned with their management. She reports that the migraines begin in the middle of her head and disseminate throughout. These episodes are associated with light sensitivity and nausea. The patient has a history of migraines and continues to experience these symptoms despite current treatment. Regarding her Type 2 Diabetes Mellitus, she uses Tresiba at 60 units daily and Humalog at 10 units three times daily. She also has Essential Hypertension managed with Lisinopril, recently adjusted from 40 mg to 30 mg. Her Bipolar Disorder and Gastroesophageal Reflux Disease are being managed with appropriate medications. [facility] Medical History (Updated 01/04/25 @ 14:04 by Juliet Henry MD) Mild recurrent major depression Physical exam Cognitive impairment Non-proliferative diabetic retinopathy, mild, left eye Hyperparathyroidism due to vitamin D deficiency Osteopenia Obesity (BMI 30-39.9) Non-toxic multinodular goiter USP (current) use of insulin Dyslipidemia Vitamin D deficiency Diabetes type 2, uncontrolled Surgical History H/O lithotripsy S/P CAIRSSA-BSO Hx of tubal ligation H/O foot surgery History of appendectomy Hx laparoscopic cholecystectomy Family History Mother Diabetes Father Diabetes Social History Housing: Apartment Alcohol intake: never Patient Tobacco Use Status: Former Tobacco user e-Cigarette/Vaping Use: Never Used Second Hand Smoke Exposure: No service: No Current occupational status: unemployed Cognitive needs: No Hearing needs: No Vision needs: Yes Questionnaire PHQ-9 Over the last 2 weeks, how often have you been bothered by any of the following problems? 1. Little interest or pleasure in doing things: several days 2. Feeling down, depressed, or hopeless: not at all 3. Trouble falling or staying asleep, or sleeping too much: several days 4. Feeling tired or having little energy: several days 5. Poor appetite or overeating: several days 6. Feeling bad about yourself - or that you are a failure or have let yourself or your family down: not at all 7. Trouble concentrating on things, such as reading the newspaper or watching television: not at all 8. Moving or speaking so slowly that other people could have noticed. Or the opposite - being so fidgety or restless that you have been moving around a lot more than usual: not at all 9. Thoughts that you would be better off or of hurting yourself in some way: not at all Total score: 4 Depression Screening Interpretation: Positive Depression Screening Follow-up: Existing condition, In treatment, Community Mental Health Worker F/U and Follow- up Visit Requested Depression Screening Done: Yes 66168 - PHQ-9 Billing: Yes Source: Developed by Drs. Tramaine Cooper, Octavia Lau, Abiodun Mendes and colleagues, with an educational samir from [employer]. Thrive Questionnaire Date Thrive assessed: 01/04/25 I am a: Patient What is your living situation today?: I have a steady place to live Within the past 12 months, did the food you bought not last and you didn't have the money to get more?: Often true Within the past 12 months, did you worry whether your food would run out before you got money to buy more?: Never true Do you have trouble paying for medicines?: No Do you have trouble getting transportation to medical appointments?: No Do you have trouble paying your heating and electricity bill?: I choose not to answer this question Do you have trouble taking care of your child, family member or friend?: No Do you have trouble with day-to-day activities such as bathing, preparing meals, shopping, managing finances, etc.?: I choose not to answer this question Are you currently unemployed and looking for a job?: No Are you interested in more education?: No Please select the resources that you would like help with: None Currently or been in a relationship where the following occur: No concerns reported THRIVE Score: 1 AUDIT C Alcohol Use Questionnaire (AUDIT-C) 1. How often do you have a drink containing alcohol?: Never Total Score: 0 Score Reviewed/Action Taken: No SIENNA-7 AMB Questionnaire SIENNA-7 Date SIENNA - 7 assessed: 01/04/25 Feeling nervous, anxious, or on edge: 1 = Several days Not being able to stop or control worryin = Not at all Worrying too much about different things: 1 = Several days Trouble relaxin = Not at all Being so restless that it is hard to sit still: 0 = Not at all Becoming easily annoyed or irritable: 0 = Not at all Feeling afraid as if something awful might happen: 0 = Not at all Total SIENNA-7 score (0-4 normal; 5-9 mild; 10-14 moderate; 15-21 severe): 2 Source: Developed by Drs. Tramaine Cooper, Octavia Lau, Abiodun Mendes and colleagues, with an educational samir from [employer]. SIENNA-7 Assessment Billing SIENNA-7 Assessment Tool: SIENNA-7 Assessment 73692 Review of Systems Const All systems reviewed & are unremarkable except as noted in HPI and below Card Denies chest pain at rest, Denies chest pain with activity, Denies edema, Denies irregular heart rhythm, Denies claudication, Denies dyspnea, Denies dyspnea on exertion, Denies orthopnea, Denies paroxysmal nocturnal dyspnea and Denies slow heart rate Resp Denies cough, Denies dyspnea and Denies dyspnea on exertion GI Denies abdominal pain, Denies change in bowel habits, Denies excessive flatus, Denies nausea and Denies vomiting Denies urinary incontinence, Denies urinary hesitancy and Denies urinary urgency Musc Denies abnormal gait, Denies atrophy, Denies deformity and Denies limited range of motion Skin/Breast Denies bleeding lesions, Denies changing lesions and Denies rash Neuro Denies abnormal gait, Denies behavioral changes and Denies lack of coordination Psych Denies behavioral changes Physical exam (Primary Care) Vital Signs: Last Vital Signs Pulse 106 H 01/04/25 13:41 BP 92/66 01/04/25 13:41 Pulse Ox 97 01/04/25 13:41 Oxygen Delivery Method Room Air 01/04/25 13:41 BMI result Body Mass Index 37.4 BMI Assessment/Plan discussion: High BMI High, discussed plan: lifestyle, weight reduction, dietary and physical activity Tobacco/Smoking Status: Tobacco use Status Tobacco use date assessed 01/04/25 01/04/25 13:47 Patient Tobacco Use Status Former Tobacco user 01/04/25 13:38 e-Cigarette/Vaping Use Never Used 01/04/25 13:38 PHQ-9: PHQ-9 Score PHQ-9: Total score 4 01/04/25 16:58 Depression Screening Interpretation: Positive Depression Screening Follow-up: Existing condition, In treatment, Community Mental Health Worker F/U and Follow- up Visit Requested Thrive Assessment: Date of Thrive Assessment Date Thrive assessed 01/04/25 01/04/25 13:38 Currently or been in a relationship where the following occur: No concerns repor sanam Resp Effort & Inspection: normal respiratory effort Auscultation: clear to auscultation bilaterally Cardio Jugular venous distension: no JVD Rate: regular rate Rhythm: regular rhythm Heart sounds: S1 normal heart sound present and S2 normal heart sound present Extrem General: Yes full ROM Office Procedures Flu Questionnaire Does the patient have a severe egg allergy?: No Results AMB Hemoglobin A1c AMB Hemoglobin A1c 8.5 % Last Edit by ANTOINE Gutierrez on 01/04/25 13:4 8 Immunizations Fluarix Triv [id number] (PF) 45 mcg (15 mcg x 3)/0.5 mL IM syringe Performing Provider: Juliet Henry MD [facility] Documented (not given) by: ANTOINE Gutierrez on 01/04/25 14:40 Reason Not Given: Patient Refused Results Reviewed Results Reviewed: Laboratory Last Values Hgb A1c (Clinic) 8.5 % (4.0-6.0) H 01/04/25 13:36 Coding Level of Care Code Est Pt Level 4 (89028) Complex EM visit Add On G2211 Diagnoses Bipolar disorder F31.9 Migraines G43.909 Type 2 diabetes mellitus, with long-term current use of insulin E11.9; Z79.4 Essential hypertension I10 Hyperlipidemia LDL goal <70 E78.5 Additional Codes SIENNA-7 Assessment Billing - SIENNA-7 Assessment Tool: SIENNA-7 Assessment 77341 ([id number]) PHQ-9 - 42568 - PHQ-9 Billing: Yes ([id number]) Time Spent (min) 25 Assessment & Plan Assessment & Plan (1) Bipolar disorder: Code(s): F31.9 - Bipolar disorder, unspecified Category: Medical (2) Migraines: Code(s): G43.909 - Migraine, unspecified, not intractable, without status migrainosus Category: Medical (3) Type 2 diabetes mellitus, with long-term current use of insulin: Code(s): E11.9 - Type 2 diabetes mellitus without complications; Z79.4 - USP (current) use of insulin Category: Medical (4) Essential hypertension: Code(s): I10 - Essential (primary) hypertension Category: Medical (5) Hyperlipidemia LDL goal <70: Code(s): E78.5 - Hyperlipidemia, unspecified Category: Medical Plan - Adjust Lisinopril to 30 mg for Essential Hypertension management. - Evaluate and consider adjustment of diabetes medications as per explosives operator recommendations. - Address Bipolar Disorder in coordination with psychiatrist. - Continue current GERD medication regimen. - Initiate laboratory tests as discussed to assess diabetes management. - Schedule follow-up to address migraine management and potential preventive measures. Patient was informed and verbally consented to the use of an ambient scribe for clinic note documentation during this visit. I discussed with the patient the management plan, including the adjustment of he r Lisinopril dosage for blood pressure control. We reviewed her current diabetic management and the need for coordination with her explosives operator for optimizing treatment. The importance of continuing her GERD and Bipolar Disorder medications was emphasized. Additionally, I recommended running laboratory tests to better understand her diabetic control. We agreed to monitor her migraine symptoms and potentially reassess her migraine medication at the next visit. Orders: Orders AMB Hemoglobin A1c Today E11.9 - Type 2 diabetes mellitus without complications, Z79.4 - terminal makeup operator (current) use of insulin Lipid Panel Today E78.5 - Hyperlipidemia, unspecified Influenza [id number] Immunization Today Z23 - Encounter for immunization Referrals Neurology Referral G43.149 - Migraine, unspecified, not intractable, without status migrainosus Medications: New lisinopril 30 mg PO DAILY 90 tabs 1RF 90 days diclofenac potassium 50 mg PO BID 10 days 20 tabs 0RF diclofenac potassium 50 mg PO BID 20 tabs 0RF 10 days Refilled blood-glucose sensor (FreeStyle Blank 3 Sensor device) Apply every 14 days As directed to monitor blood glucose 2 ea 11RF E11.9 - Type 2 diabetes mellitus without complications, Z79.4 - terminal makeup operator (current) use of insulin blood-glucose sensor (FreeStyle Blank 3 Sensor device) Apply every 14 days As directed to monitor blood glucose 2 ea 11RF E11.9 - Type 2 diabetes mellitus without complications, Z79.4 - terminal makeup operator (current) use of insulin Discontinued lisinopril Discontinued Reason: Order 40 mg PO DAILY 90 days 90 tabs 3RF E11.65 - Type 2 diabetes mellitus with hyperglycemia Patient Instructions: - Continue Lisinopril at 30 mg as prescribed. - Adhere to current diabetes medication regimen and follow up with explosives operator. - Maintain current GERD and bipolar disorder treatments. - Report any change in migraine patterns or severity. - Follow through with laboratory tests as ordered. - Schedule a follow-up appointment as discussed.
[2025-01-04 13:41] VITALS: BP 92/66; PULSE 106; O2SAT 97; BMI 37.4
--- OUTSIDE RECORDS SUMMARY | 2025-01-04 14:38 | XMS_ITS | Encounter Summary ---
Author Organization [employer] Address [address] [place] [address] Care Team Providers Care General Dentist/Owner Name Role Phone Unavailable Primary Care Provider Unavailabl e Reason for Visit * Reason Onset Date Comments New Patient appt 01/01/2025 Encounter Details Date Type Department Care Team (Late st Contact Info) Description 01/01/2025 Telephone [facility] MEDICINE [address] [place] [address] Alcides Rothman MD [address] [place] [address] New Patient appt Social History Tobacco Use Types Packs/Day Years Used Date Smoking Tobacco: Never Passive Smoke Exposure: Never Smokeless Tobacco: Never Alcohol Use Standard Drinks/Week Comments Never 0 (1 standard drink = 0.6 oz pur e alcohol) Comments Unknown Sex and Gender Information Value Date Recorded Sex Assigned at Female 10/01/2022 10:18 AM EDT Legal Sex Female 10:18 AM EDT Gender Identity Female 12/14/2022 8:55 AM EST Sexual Orientation Choose not to disclose 2022 8:55 AM EST documented as of this encounter Miscellaneous Notes * Telephone Encounter - Mahnaz Arceo - 01/01/2025 11:47 AM EST Outgoing call to pt to book MEDICAL COLLECTOR appt. Patient booked for 03/23/[address] Anderson. Medical conditions reported: DM, severe depression, severe anxiety, bipolar, migraine. Appt reminder sent via text and mail. documented in this encounter Plan of Treatment Upcoming Encounters Date Type Department Care Team (Late st Contact Info) Description 03/23/2025 9:45 AM EDT Office Visit [facility] MEDICINE [address], [place] [id number] Lyn Pop MD [address] [place] [address] documented as of this encounter Visit Diagnoses Not on filedocumented in this encounter
--- OUTSIDE RECORDS SUMMARY | 2025-01-04 14:38 | XMS_ITS | Clinical Summary ---
Author Organization [employer] Address [address] [place] [address] Care Team Providers Care Stitch Bonding Machine Tender Helper Name Role Phone Unavailable Primary Care Provider Unavailabl e Allergies No known active allergies Medications acetaminophen- codeine (TYLENOL/CODEI NE #3) 300-30 MG tabletIndicati ons:Necrosis of dental pulp Take 1 tablet by mouth every 6 (six) hours if needed for severe pain for up to 5 doses. 5 tablet 3 Active busPIRone (Buspar) 7.5 MG tablet 3 Active citalopram (CeleXA) 20 MG tablet TOME JEAN-CLAUDE TABLETA TODOS LOS D 3 Active Trulicity 4.5 MG/0.5ML solution pen-injector 3 Active Jardiance 10 MG TOME JEAN-CLAUDE TABLETA TODOS LOS D 3 Active latanoprost (Xalatan) 0.005 % ophthalmic solution PONGA JEAN-CLAUDE GOTA EN LOS DOS OJOS AL ACOSTARSE 3 Active lisinopril 40 MG tablet TOME JEAN-CLAUDE TABLETA TODOS LOS D 3 Active LORazepam (Ativan) 0.5 MG tablet TOME JEAN-CLAUDE TABLETA DOS VECES AL D A CUANDO SEA NECESARIO 3 Active metFORMIN (Glucophage) 500 MG tablet TOME JEAN-CLAUDE TABLETA DOS VECES AL D A 3 Active mirtazapine (Remeron) 30 MG tablet TOME JEAN-CLAUDE TABLETA TODOS LOS D AL ACOSTARSE 3 Active paliperidone (Invega) 3 MG 24 hr tablet 3 Active pantoprazole (ProtoNix) 40 MG EC tablet TOME JEAN-CLAUDE TABLETA TODOS LOS D 3 Active rosuvastatin (Crestor) 40 MG tablet 3 Active SUMAtriptan (Imitrex) 25 MG tablet TAKE 1 TABLET BY MOUTH EVERY 2 TO 4 HOURS NEEDED FOR MIGRAINE FOR 30 DAYS MAX 8 DOSES PER 24 HRS 3 Active Farxiga 10 MG Take 10 mg by mouth Once per day. 4 Active Bydureon BCise 2 MG/0.85ML pen 2 MG (0.85 ML) SUBCUTANEOUSLY EVERY WEEK 4 Active FREESTYLE LITE test strip USE TO TEST 3 TIMES DAILY 4 Active Insulin Degludec FlexTouch 100 UNIT/ML solution pen-injector INJECT 40 UNIT SUBCUTANEOUSLY BEDTIME FOR 30 DAYS 4 Active Lantus SoloStar 100 UNIT/ML pen INJECT 40 UNIT (0.4 ML) SUBCUTANEOUSLY DAILY FOR 30 DAYS 4 Active insulin lispro (HumaLOG) 100 UNIT/ML injection INJECT 10 UNIT SUBCUTANEOUSLY 3 TIMES A DAY FOR 30 DAYS WITH BREAKFAST, LUNCH AND SUPPER 4 Active Active Problems Problem Noted Date Diagnosed Date Dental calculus 09/11/2023 Periodontal disease 09/11/2023 Minimal localized gingival recession 09/11/2023 Encounters Date Type Department Care Team Description 01/01/2025 Telephone [facility] MEDICINE [address] [place] [phone] Alcides Rothman MD New Patient appt from Last 3 Months Social History Tobacco Use Types Packs/Day Years Used Date Smoking Tobacco: Never Passive Smoke Exposure: Never Smokeless Tobacco: Never Tobacco Cessation:Counseling Given: Not Answered Alcohol Use Standard Drinks/Week Comments Never 0 (1 standard drink = 0.6 oz pur e alcohol) Comments Unknown Sex and Gender Information Value Date Recorded Sex Assigned at Female 10/01/2022 10:18 AM EDT Legal Sex Female 10:18 AM EDT Gender Identity Female 12/14/2022 8:55 AM EST Sexual Orientation Choose not to disclose 2022 8:55 AM EST Last Filed Vital Signs Vital Sign Reading Time Taken Comments Blood Pressure 134/78 10/01/2024 1:20 PM EDT Pulse 92 09/11/2023 9:45 AM EDT Temperature - - Respiratory Rate - - Oxygen Saturation - - Inhaled Oxygen Concentration - - Weight - - Height - - Body Mass Index - - Plan of Treatment Upcoming Encounters Date Type Department Care Team (Late st Contact Info) Description 03/23/2025 9:45 AM EDT Office Visit [facility] MEDICINE [address] [place] [address] Lyn Pop MD [address] [place] [address] Health Maintenance Due Date Last Done Comments CT Colonography 1955 Colonoscopy 1955 Colorectal Cancer Screening 1955 Depression Screening 1955 FIT DNA/Cologuard 1955 FIT 1955 FOBT 1955 SDOH Screening 1955 Sigmoidoscopy 1955 Alcohol/Substance Use Screening 1967 Hepatitis C Screening 1973 Mammogram 1995 Zoster Vaccines (1 of 2) 2005 Pneumococcal Vaccine: 50+ Years (2 of 2 - PCV) 06/12/2017 06/12/2016, 10/24/2010 DTaP/Tdap/Td Vaccines (2 - Tdap) 06/01/2020 06/01/2010 Dental Oral Exam 02/14/2024 08/15/2023 Dental Prophylaxis 03/13/2024 09/11/2023 COVID-19 Vaccine (3 - 2023- season) 2024 04/13/2021, 03/23/2021 Influenza Vaccine (#1) 2024 2, 08/26/2019, 09/30/2018, Additional history exists Dental X-Ray: Bitewings 08/16/2024 08/15/2023 Tobacco Screening 10/01/2025 10/01/2024 Dental X-Ray: Full Mouth 08/16/2026 08/15/2023 RSV Patients and Patients Aged 60 years or older (1 - 1-dose 75+ series) 2030 HIB Vaccines Aged Out No longer eligi ble based on patient's age to complete this topic HPV Vaccines Aged Out No longer eligi ble based on patient's age to complete this topic Hepatitis A Vaccines Aged Out No long er eligible based on patient's age to complete this topic Hepatitis B Vaccines Aged Out No long er eligible based on patient's age to complete this topic IPV Vaccines Aged Out No longer eligi ble based on patient's age to complete this topic Meningococcal Vaccine Aged Out No amber everett eligible based on patient's age to complete this topic RSV under 20 months Aged Out No longe r eligible based on patient's age to complete this topic Rotavirus Vaccines Aged Out No longer eligible based on patient's age to complete this topic Procedures Procedure Name Priority Date/Time Associated Diagnosis Comments PROPHYLAXIS - ADULT Routine 09/11/2023 1 0:00 AM EDT Dental calculus Periodontal disease DIAGNOSTIC - DIAGNOSTIC IMAGING - INTRAORAL - COMPREHENSIVE SERIES OF RADIOGRAPHIC IMAGES Routine 08/15/2023 1:00 PM EDT Excessive attrition of teeth, extending into dentin Bruxism Gingivitis Dental caries COMPREHENSIVE ORAL EVALUATION - NEW OR ESTABLISHED PATIENT Routine 08/15/2023 1:00 PM EDT Excessive attrition of teeth, extending into dentin Bruxism Gingivitis Dental caries from Last 3 Months or Most Recently Relevant to Health Maintenance Insurance [facility] [place]AND[place] STAND ADULT DENTAL - [employer] DENTAL PPO
--- OUTSIDE RECORDS SUMMARY | 2025-01-04 14:38 | XMS_ITS | Encounter Summary ---
Author Organization [employer] Address [address] [place] [address] Care Team Providers Care Test Hole Driller Name Role Phone Unavailable Primary Care Provider Unavailabl e Encounter Details Date Type Department Care Team (Late st Contact Info) Description 09/25/2023 Abstract [facility] D[facility]AL [address] [place] [address] Lelia Boateng [address] [place] [address] Social History Tobacco Use Types Packs/Day Years [...] AM EST documented as of this encounter Plan of Treatment Upcoming Encounters Date Type Department Care Team (Late st Contact Info) Description 03/23/2025 9:45 AM EDT Office Visit [facility] MEDICINE [address] [place] [address] Lyn Pop MD [address] [place] [address] documented as of this encounter Visit Diagnoses Not on filedocumented in this encounter
== END 2025-01-04 14:11 | disposition home or self-care (01) ==
PROVIDERS: PCP Internal Medicine; Visit Provider Internal Medicine
DX: F31.9 Bipolar disorder, unspecified (principal); G43.909 Migraine, unspecified, not intractable, without status migrainosus; E11.9 Type 2 diabetes mellitus without complications; Z79.4 Long term (current) use of insulin; I10 Essential (primary) hypertension; E78.5 Hyperlipidemia, unspecified; Z23 Encounter for immunization

== ENCOUNTER → 2025-01-04 13:22 | Outpatient (BNVA) | payer MEDICARE, MEDICAID, SELFPAY | PROVIDERS: PCP Internal Medicine; Visit Provider Internal Medicine | DX: F31.9 Bipolar disorder, unspecified (principal); G43.909 Migraine, unspecified, not intractable, without status migrainosus; E11.9 Type 2 diabetes mellitus without complications; E78.5 Hyperlipidemia, unspecified; I10 Essential (primary) hypertension; Z79.4 Long term (current) use of insulin | CPT/HCPCS: 83036; 90471; 96127; 99212 ==

== ENCOUNTER 2025-01-15 09:19 | Outpatient (AMB) | payer MEDICARE, MEDICAID, SELFPAY ==
[2025-01-15 09:31] VITALS: BP 140/84; PULSE 77; O2SAT 98; BMI 37.7
--- NOTE | 2025-01-15 09:31 | A.OFFVIS_ITS ---
Vital Signs 01/15/25 09:31 Height 5 ft 3 in Weight 212 lb 15.465 oz BMI 37.7 BP 140/84 H Blood Pressure Location Lt brachial Position Sitting Pulse 77 Pulse Source Pulse Oximeter Pulse Oximetry (%) 98 Oxygen Delivery Method Room Air Intake Visit Reasons: DM Intake Note: Patient present today for Type 2 Diabetes Mellitus Last Diabetic eye exam: 10/2024 Last Podiatry Visit: Doesn't have one Random Glucose: 164 mg/dl HgA1C: 8.5% 01/04/25 Investigation Division Sergeant Required: Yes Investigation Division Sergeant Language: Lozenge Maker Services: Investigation Division Sergeant Offered & Declined Accompanied by: Daughter Allergies No Known Allergies [No Known Allergies*] Allergy (Verified 01/15/25 09:36) Medication List - Last Reconciled 01/15/25 by Jennifer Villarreal PA-C blood sugar diagnostic (FreeStyle Lite Strips) 1 strip miscellaneous TID 30 days blood-glucose meter (FreeStyle Lite Meter kit) Use daily As directed to check blood sugars blood-glucose meter,continuous (FreeStyle Blank 3 [place]) Use daily As directed to monitor blood glucose blood-glucose sensor (FreeStyle Blank 3 Sensor device) Apply every 14 days As directed to monitor blood glucose buspirone 7.5 mg PO BID opnrjycfjk-hrwaqwpjpixgd-jsej 50-300-40 mg 1 cap PO Q8H PRN 30 days cholecalciferol (vitamin D3) 50 mcg PO DAILY 30 days citalopram 20 mg PO DAILY dapagliflozin propanediol (Farxiga) 10 mg PO DAILY diclofenac potassium 50 mg PO BID 10 days flash glucose sensor (FreeStyle Blank 2 Sensor kit) As directed change every 14 days glucose (Dex4 Glucose) 16 grams (4 x 4 gram) PO Q15M PRN insulin degludec (Tresiba FlexTouch U-100 insulin) 60 units (0.6 mL) subcut BEDTIME 30 days insulin lispro (Humalog KwikPen (U-100) Insulin) 12 units (0.12 mL) subcut TID 30 days lancets (FreeStyle Lancets) As directed 3 times a day lancets (FreeStyle Lancets) use daily as directed to check blood glucose latanoprost 0.005% 1 drp ophthalmic (eye) BEDTIME lisinopril 30 mg PO DAILY 90 days lorazepam 0.5 mg PO BID PRN metformin 500 mg PO BID 90 days mirtazapine 40 mg PO BEDTIME paliperidone ER 3 mg PO DAILY pantoprazole 40 mg PO DAILY 90 days pen needle, diabetic (Comfort EZ Pen [place]) As directed injects 4X/day pen needle, diabetic (BD Ultra-Fine Mini Pen Needle) Use 4x daily polyethylene glycol 3350 (Miralax) 238 grams PO ONCE ramelteon 8 mg PO BEDTIME rosuvastatin (Crestor) 40 mg PO DAILY 90 days semaglutide (Ozempic) 2 mg (0.75 mL) subcut QWEEK sumatriptan succinate 25 mg PO Q2-4H PRN 30 days HPI HPI DM: Details: Patient is a 69-year-old female with a significant past medical history of depression, cognitive impairment, hyperlipidemia, hypertension, secondary hyperparathyroidism, type 2 diabetes uncontrolled presenting today for a diabetic follow-up. Her daughter is here today to help with translation. Endo: DM-she was diagnosed with type 2 diabetes around 2009. Her A1c was 8.5. She is currently on metformin 500 mg twice a day, Tresiba 60 units nightly and Humalog 10 units with breakfast, lunch and supper, She is on Farxiga 10 mg robert ly, and ozempic 1 mg weekly. She is tolerating the Ozempic without difficulty. She has not noted any weight loss. She has tried trulicity and Bydureon BCise without improvement of glucose. The trulicity caused nausea. She gets bruising and pain with the injection of BCise. She states that it feels very ineffective and the shots are very painful for her. She does not know why as giving herself insulin and trying Trulicity in the past was not painful. She does not tolerate higher doses of metformin. CGM- Blank download shows says sensor is active 41% of the time. Average glucose is 175 with variability of 28.8%. 60% range with 32% hyperglycemia and 8% very hyperglycemic and no hypoglycemia. No hypoglycemia-states that she has not had any low blood sugars in quite some time and also would corrected in the past with juice. Complications:, nephropathy, neuropathy, no CVA, no CAD, PVD. She is on an DEON-inhibitor and statin Last ophthalmology evaluation: 05/20/2024 She denies nocturia , polyuria and polydipsia, she denies numbness, tingling, burning pain, blurred vision. CV: Blood pressure today in the office is 140/84. She has any water yet today. She is on 30 mg of lisinopril daily. Tolerates this well. Cholesterol is controlled with Crestor. Last LDL was WNL but not checked since [facility] Medical History Mild recurrent major depression Physical exam Cognitive impairment Non-proliferative diabetic retinopathy, mild, left eye Hyperparathyroidism due to vitamin D deficiency Osteopenia Obesity (BMI 30-39.9) Non-toxic multinodular goiter MCFP (current) use of insulin Dyslipidemia Vitamin D deficiency Diabetes type 2, uncontrolled Surgical History H/O lithotripsy S/P CARISSA-BSO Hx of tubal ligation H/O foot surgery History of appendectomy Hx laparoscopic cholecystectomy Family History Mother Diabetes Father Diabetes Social History Housing: Apartment Alcohol intake: never Patient Tobacco Use Status: Former Tobacco user e-Cigarette/Vaping Use: Never Used Second Hand Smoke Exposure: No service: No Current occupational status: unemployed Cognitive needs: No Hearing needs: No Vision needs: Yes Physical Exam Vital Signs: Last Vital Signs Pulse 77 01/15/25 09:31 BP 140/84 H 01/15/25 09:31 Pulse Ox 98 01/15/25 09:31 Oxygen Delivery Method Room Air 01/15/25 09:31 BMI result Body Mass Index 37.7 Const Orientation/consciousness: patient oriented x3 Neck Neck: Yes no lymphadenopathy Thyroid: Thyroid normal Carotids: no bruits Resp Auscultation: clear to auscultation bilaterally Cardio Rate: regular rate Rhythm: regular rhythm Heart sounds: S1 normal heart sound present and S2 normal heart sound present Peripheral pulses: dorsalis pedis present Neuro General: patient oriented x3, gait normal and no focal motor deficits Extrem Other: Monofilament sensation intact bilaterally. Vibratory sensation intact bilaterally. Skin intact. General: Yes normal to inspection Results Reviewed Results Reviewed: Laboratory Last Values Glucose (Clinic) 164 mg/dL (60-115) H 01/15/25 09:38 Laboratory Tests 01/04/25 01/15/25 13:36 09:38 Glucose (Clinic) 164 H Hgb A1c (Clinic) 8.5 H Assessment & Plan Assessment & Plan (1) Diabetes type 2, uncontrolled: Code(s): E11.65 - Type 2 diabetes mellitus with hyperglycemia Category: Medical Qualifiers: Glycemic state: with hyperglycemia Qualified Code(s): E11.65 - Type 2 diabetes mellitus with hyperglycemia Plan: Increase Ozempic to 2 mg weekly. Continue with the Tresiba 60 units nightly increase Humalog to 12 units with meals. Discussed the importance of completing labs. Advised that she does need to get these done before next appointment. (2) Dyslipidemia: Code(s): E78.5 - Hyperlipidemia, unspecified Category: Medical Plan: Advised to continue the Crestor but she needs to get her lipids and LFTs checked. (3) Essential hypertension: Code(s): I10 - Essential (primary) hypertension Category: Medical Plan: Better with the reduction of the lisinopril. Medications: New semaglutide (Ozempic) 2 mg (0.75 mL) subcut QWEEK 3 mL 5RF glucose (Dex4 Glucose) until symptoms of low blood sugar are controlled 16 grams (4 x 4 gram) PO Q15M PRN 100 tabs 0RF hypoglycemia Changed From insulin lispro (Humalog KwikPen (U-100) Insulin) with breakfast, lunch and supper 10 units (0.1 mL) subcut TID 30 days 9 mL 4RF To insulin lispro (Humalog KwikPen (U-100) Insulin) with breakfast, lunch and supper 12 units (0.12 mL) subcut TID 15 mL 4RF 30 days Refilled blood-glucose meter (FreeStyle Lite Meter kit) Use daily As directed to check blood sugars 1 ea 0RF E11.22 - Type 2 diabetes mellitus with diabetic chronic kidney disease, E11.9 - Type 2 diabetes mellitus without complications, Z79.4 - ad terminal makeup operator (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
--- OUTSIDE RECORDS SUMMARY | 2025-01-15 09:41 | XMS_ITS | Encounter Summary ---
Author Organization [employer] Address [address] [facility] [address] [place] [address] Care Team Providers Care Deck Mechanic Name Role Phone Unavailable Primary Care Provider Unavailabl e Encounter Details Date Type Department Care Team (Late st Contact Info) Description 09/25/2023 Abstract [facility] ADULT DENTAL [address] [place] [address] Lelia Boateng [address] [place] [address] Social History Tobacco Use Types Packs/Day Years [...] Description 03/23/2025 9:45 AM EDT Office Visit [facility] [address] [place] [address] Lyn Pop MD [address] [place] [address] documented as of this encounter Visit Diagnoses Not on filedocumented in this encounter
--- OUTSIDE RECORDS SUMMARY | 2025-01-15 09:41 | XMS_ITS | Clinical Summary ---
Author Organization [employer] Address [address] [facility] [address] [place] [address] Care Team Providers Care Pit Steward Name Role Phone Unavailable Primary Care Provider [...] Type Department Care Team Description 01/01/[address] [facility] MEDICINE [address] [place] [phone] Alcides Rothman MD New Patient appt [...] Description 03/23/2025 9:45 AM EDT Office Visit [facility] MED[facility]INE [address] [place] [address] Lyn Pop MD [address] [place] [address] Health Maintenance Due Date Last Done Comments [...] 0:00 AM EDT Dental calculus Periodontal disease INTRAORAL - COMPLETE SERIES OF RADIOGRAPHIC IMAGES Routine 08/15/2023 1:00 PM EDT Excessive attrition of teeth, extending into dentin Bruxism Gingivitis Dental caries COMPREHENSIVE ORAL EVALUATION - NEW OR ESTABLISHED PATIENT Routine 08/15/2023 1:00 PM EDT Excessive attrition of teeth, extending into dentin Bruxism Gingivitis Dental caries from Last 3 Months or Most Recently Relevant to Health Maintenance Insurance [facility] STANDARD DENTAL-[facility] MEDICAID STAND ADULT DENTAL - [employer] DENTAL PPO
--- OUTSIDE RECORDS SUMMARY | 2025-01-15 09:41 | XMS_ITS | Encounter Summary ---
Author Organization [employer] Address [address] [place] [address] Care Team Providers Care Nipple Threader Name Role Phone Unavailable Primary Care Provider Unavailabl e Reason for Visit * Reason Onset Date Comments New Patient appt 01/01/2025 Encounter Details Date Type Department Care Team (Late st Contact Info) Description 01/01/2025 Telephone [facility] MEDICINE [address] [place] [address] Alcides Rothman MD [address] [place] [address] New Patient appt Social History Tobacco Use [...] EST Outgoing call to pt to book ELEVATOR OPERATOR FREIGHT appt. Patient booked for 03/23/[address] Anderson. Medical conditions reported: DM, severe depression, severe anxiety, bipolar, migraine. Appt reminder sent via text and mail. documented in this encounter Plan of Treatment Upcoming Encounters Date Type Department Care Team (Late st Contact Info) Description 03/23/2025 9:45 AM EDT Office Visit [facility] MEDICINE [address] [place], [place] [phone] Lyn Pop MD [address] [place] [address] documented as of this encounter Visit Diagnoses Not on filedocumented in this encounter
[2025-01-15 09:43] LABS: Glucose, Whole Blood 164 mg/dL (60-115)
== END 2025-01-15 10:01 | disposition home or self-care (01) ==
PROVIDERS: PCP Internal Medicine; Visit Provider Physician Assistant
DX: E11.65 Type 2 diabetes mellitus with hyperglycemia (principal); E78.5 Hyperlipidemia, unspecified; I10 Essential (primary) hypertension

== ENCOUNTER → 2025-01-15 09:19 | Outpatient (BNVA) | payer MEDICARE, MEDICAID, SELFPAY | PROVIDERS: PCP Internal Medicine; Visit Provider Physician Assistant | DX: E11.65 Type 2 diabetes mellitus with hyperglycemia (principal); E78.5 Hyperlipidemia, unspecified; I10 Essential (primary) hypertension | CPT/HCPCS: 82947; 99212 ==

== ENCOUNTER 2025-04-16 10:11 | Outpatient (AMB) | payer OTHER, SELFPAY ==
[2025-04-16 10:17] VITALS: BP 90/60; PULSE 100; O2SAT 96; BMI 37.2
--- NOTE | 2025-04-16 10:17 | A.OFFVIS_ITS ---
Vital Signs 04/16/25 10:17 Height 5 ft 3 in Weight 209 lb 14.081 oz BMI 37.2 BP 90/60 Blood Pressure Location Lt brachial Position Sitting Pulse 100 Pulse Source Pulse Oximeter Pulse Oximetry (%) 96 Oxygen Delivery Method Room Air Intake Visit Reasons: DM Intake Note: Patient present today for Type 2 Diabetes Mellitus Last Diabetic eye exam: 01/2025 Last Podiatry Visit: Doesn't have one Random Glucose: 167 mg/dl HgA1C: 7.5% Medicaid Billing Specialist Required: Yes Medicaid Billing Specialist Language: Computer Typesetter Keyliner Services: Medicaid Billing Specialist Offered & Declined Accompanied by: Daughter Allergies No Known Allergies [No Known Allergies*] Allergy (Verified 04/16/25 10:24) Medication List - Last Reconciled 04/16/25 by Jennifer Villarreal PA-C blood sugar diagnostic (FreeStyle Lite Strips) 1 strip miscellaneous TID 30 days blood-glucose meter (FreeStyle Lite Meter kit) Use daily As directed to check blood sugars blood-glucose,biodiesel division manager,cont (FreeStyle Blank 3 [place]) Use daily As directed to monitor blood glucose buspirone 7.5 mg PO BID znqclraqqk-xkgtqvmteuzak-cxut 50-300-40 mg 1 cap PO Q8H PRN 30 days cholecalciferol (vitamin D3) 50 mcg PO DAILY 30 days citalopram 20 mg PO DAILY dapagliflozin propanediol (Farxiga) 10 mg PO DAILY diclofenac potassium 50 mg PO BID 10 days glucose (Dex4 Glucose) 16 grams (4 x 4 gram) PO Q15M PRN insulin degludec (Tresiba FlexTouch U-100 insulin) 60 units (0.6 mL) subcut BEDTIME 30 days insulin lispro (Humalog KwikPen (U-100) Insulin) 12 units (0.12 mL) subcut TID 30 days lancets (FreeStyle Lancets) As directed 3 times a day lancets (FreeStyle Lancets) use daily as directed to check blood glucose latanoprost 0.005% 1 drp ophthalmic (eye) BEDTIME lisinopril 30 mg PO DAILY 90 days lorazepam 0.5 mg PO BID PRN metformin 500 mg PO BID 90 days mirtazapine 40 mg PO BEDTIME paliperidone ER 3 mg PO DAILY pantoprazole 40 mg PO DAILY 90 days pen needle, diabetic (Comfort EZ Pen [place]) As directed injects 4X/day pen needle, diabetic (BD Ultra-Fine Mini Pen Needle) Use 4x daily polyethylene glycol 3350 (Miralax) 238 grams PO ONCE ramelteon 8 mg PO BEDTIME rosuvastatin (Crestor) 40 mg PO DAILY 90 days sumatriptan succinate 25 mg PO Q2-4H PRN 30 days HPI HPI DM: Details: Patient is a 69-year-old female with a significant past medical history of depression, cognitive impairment, hyperlipidemia, hypertension, secondary hyperparathyroidism, type 2 diabetes uncontrolled presenting today for a diabetic follow-up. Her daughter is here today to help with translation. Endo: DM-she was diagnosed with type 2 diabetes around 2009. Her A1cis 7.5. She is currently on metformin 500 mg twice a day, Tresiba 60 units nightly and Humalog 12 units with breakfast, lunch and supper, She is on Farxiga 10 mg daily, and ozempic 2 mg weekly. She states since increasing the Ozempic she has noticed some increased nausea. She has not vomited but does not really like how this makes her feel. She has tried trulicity and Bydureon BCise without improvement of glucose. The trulicity caused nausea. She gets bruising and pain with the injection of BCise. She states that it feels very ineffective and the shots are very painful for her. She does not know why as giving herself insulin and trying Trulicity in the past was not painful. She does not tolerate higher doses of metformin. CGM- Blank download shows says sensor is active 35% of the time. Average glucose is 206 with variability of 26%. 35% range with 42% hyperglycemia and 23% very hyperglycemic and no hypoglycemia. No hypoglycemia-states that she has not had any low blood sugars in quite some time and also would corrected in the past with juice. Complications:, nephropathy, neuropathy, no CVA, no CAD, PVD. She is on an DEON-inhibitor and statin Last ophthalmology evaluation: 05/20/2024 She denies nocturia , polyuria and polydipsia, she denies numbness, tingling, burning pain, blurred vision. CV: Blood pressure today in the office is 90/60. bps are usually elevated. She is on 30 mg of lisinopril daily. Tolerates this well. Cholesterol is controlled with Crestor. 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 Dyslipidemia Vitamin D deficiency Diabetes type 2, uncontrolled Surgical History H/O lithotripsy S/P CARISSA-BSO Hx of tubal ligation H/O foot surgery History of appendectomy Hx laparoscopic cholecystectomy Family History Mother Diabetes Father Diabetes Social History Housing: Apartment Alcohol intake: never Patient Tobacco Use Status: Former Tobacco user e-Cigarette/Vaping Use: Never Used Second Hand Smoke Exposure: No service: No Current occupational status: unemployed Cognitive needs: No Hearing needs: No Vision needs: Yes Physical Exam Vital Signs: Last Vital Signs Pulse 100 04/16/25 10:17 BP 90/60 04/16/25 10:17 Pulse Ox 96 04/16/25 10:17 Oxygen Delivery Method Room Air 04/16/25 10:17 BMI result Body Mass Index 37.2 Const Orientation/consciousness: patient oriented x3 Neck Neck: Yes no lymphadenopathy Thyroid: Thyroid normal Carotids: no bruits Resp Auscultation: clear to auscultation bilaterally Cardio Rate: regular rate Rhythm: regular rhythm Heart sounds: S1 normal heart sound present and S2 normal heart sound present Peripheral pulses: dorsalis pedis present Neuro General: patient oriented x3, gait normal and no focal motor deficits Extrem Other: Monofilament sensation intact bilaterally. Vibratory sensation intact bilaterally. Skin intact. 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 Advised to switch from the Blank 2 to 3 +for continuous monitoring. She will follow up in 4-6 weeks to be rechecked. Labs prior to appointment (2) Hyperlipidemia LDL goal <70: Code(s): E78.5 - Hyperlipidemia, unspecified Category: Medical Plan: Labs ordered (3) Essential hypertension: Code(s): I10 - Essential (primary) hypertension Category: Medical Plan: Low today but has been normal at home and has this monitored by a nurse. We will recheck in 4-6 weeks. Orders: Orders Comprehensive [place]. 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 Lipid Panel Today E11.65 - Type 2 diabetes mellitus with hyperglycemia, E11.9 - Type 2 diabetes mellitus without complications, E78.5 - Hyperlipidemia, unspecified, I10 - Essential (primary) hypertension, Z79.4 - USP (current) use of insulin AMB Hemoglobin A1c Today E11.9 - Type 2 diabetes mellitus without complications, Z13.9 - Encounter for screening, unspecified, Z79.4 - 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 Microalbumin, Random (w Creat) Today E11.65 - Type 2 diabetes mellitus with hyperglycemia, E11.9 - Type 2 diabetes mellitus without complications, E78.5 - Hyperlipidemia, unspecified, I10 - Essential (primary) hypertension, Z79.4 - USP (current) use of insulin Medications: New blood-glucose sensor (FreeStyle Blank 3 Plus Sensor device) Use daily As directed to monitor glucose 2 ea 5RF E08.29 - Diabetes mellitus due to underlying condition with other diabetic kidney complication, R80.9 - Proteinuria, unspecified, Z79.4 - 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 blood-glucose sensor (FreeStyle Blank 3 Plus Sensor device) Use daily As dir ected to monitor glucose 2 ea 5RF E08.29 - Diabetes mellitus due to underlying condition with other diabetic kidney complication, R80.9 - Proteinuria, unspecified, Z79.4 - 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 tirzepatide (Mounjaro) 2.5 mg (0.5 mL) subcut QWEEK 2 mL 1RF Changed From insulin degludec (Tresiba FlexTouch U-100 insulin) 60 units (0.6 mL) subcut BEDTIME 30 days 18 mL 3RF To insulin degludec (Tresiba FlexTouch U-100 insulin) 70 units (0.7 mL) subcut B EDTIME 30 days 21 mL 3RF From insulin lispro (Humalog KwikPen (U-100) Insulin) with breakfast, lunch and supper 12 units (0.12 mL) subcut TID 30 days 15 mL 4RF To insulin lispro (Humalog KwikPen (U-100) Insulin) with breakfast, lunch and supper 15 units (0.15 mL) subcut TID 30 days 13.5 mL 4RF Coding Level of Care Code Est Pt Level 4 (45103) Complex EM visit Add On G2211 Diagnoses Type 2 diabetes mellitus, with long-term current use of insulin E11.9; Z79.4 Hyperlipidemia LDL goal <70 E78.5 Essential hypertension I10
[2025-04-16 10:31] LABS: Glucose, Whole Blood 167 mg/dL (60-115)
--- OUTSIDE RECORDS SUMMARY | 2025-04-16 10:33 | XMS_ITS | Clinical Summary ---
Author Organization [employer] Address [address] [place] [address] Care Team Providers Care Station Agent Name Role Phone Unavailable Primary Care Provider [...] WITH BREAKFAST, LUNCH AND SUPPER 4 Active Continuous Glucose Meat Slicer (FreeStyle Blank 3 [place]) device 5 Active Continuous Glucose Sensor (FreeStyle Blank 3 Sensor) [facility] 5 Active diclofenac (Cataflam) 50 MG tablet 5 Active B-D UF III MINI PEN NEEDLES 31G X 5 MM [place] USE CUATRO VECES AL D A 4 Active FreeStyle lancets USE DIRECTED 3X A DAY 4 Active Ozempic, 2 MG/DOSE, 8 MG/3ML solution pen-injector INJECT 2 MG (0.75 ML) SUBCUTANEOUSLY EVERY WEEK 5 Active mirtazapine (Remeron) 45 MG tablet Take 45 mg by mouth at bedtime. 5 Active Active Problems Problem Noted Date Diagnosed Date Dental calculus 09/11/2023 Periodontal disease 09/11/2023 Minimal localized gingival recession 09/11/2023 Encounters Date Type Department Care Team Description 02/11/2025 1:30 PM EDT Office Visit [facility] ADULT D[facility]AL [address] [place] [address] [place] [address] Vitor Avila DMD 02/04/2025 1:00 PM EST Office Visit [facility] ADULT D[facility]AL [address] [place] [address] Vitor Avila DMD from Last 3 Months Immunizations Immunization Administration Dates Next Due DTaP 06/01/2010 Influenza injectable quadriv alent IIV4 with preservative 08/26/2019,09/30/2018,08/13/2017 Influenza injectable quadriv alent preservative free 09/20/2022,09/01/2015 Influenza, IIV3, injectable 09/20/2014, 1,09/21/2008 Influenza, Split (incl. karin fied surface antigen) 08/10/2013,08/11/2012 Pneumococcal Polysaccharide PPSV23 06/12/2016, Social History Tobacco Use Types Packs/Day Years [...] Sign Reading Time Taken Comments Blood Pressure 136/84 02/11/2025 1:31 PM EDT Pulse 92 09/11/2023 9:45 AM EDT Temperature - - Respiratory Rate - - Oxygen Saturation - - Inhaled Oxygen Concentration - - Weight - - Height - - Body Mass Index - - Plan of Treatment Upcoming Encounters Date Type Department Care Team (Late st Contact Info) Description 08/19/2025 10:00 AM EDT Office Visit [facility] ADULT DENTAL [address] [place] [address] Kade Boatengaris [address] [place] [address] Health Maintenance Due Date Last Done Comments [...] Prophylaxis 03/13/2024 09/11/2023 COVID-19 Vaccine (3 - season) 2024 04/13/2021, 03/23/2021 Influenza Vaccine (#1) 2024 2, 08/26/2019, 09/30/2018, Additional history exists Dental X-Ray: Bitewings 08/16/2024 08/15/2023 Tobacco Screening 02/11/2026 02/11/2025 Dental X-Ray: Full Mouth 08/16/2026 08/15/2023 RSV [...] patient's age to complete this topic Meningococcal B Vaccine Aged Out No l onger eligible based on patient's age to complete [...] Procedure Name Priority Date/Time Associated Diagnosis Comments CASE PRESENTATION, DETAILED AND EXTENSIVE TREATMENT PLANNING Routine 02/11/2025 1:30 PM EDT 20 CROWN - PORCELAIN/CERAMIC Routine 02/11/2025 1:30 PM EDT NO CHARGE VISIT Routine 02/04/2025 1:00 PM EST PROPHYLAXIS - ADULT Routine 09/11/2023 1 0:00 [...] Most Recently Relevant to Health Maintenance Insurance AETNA MEDICARE REPLACEMENT DENTAL-[facility] MEDICAID STAND ADULT DENTAL - AETNA DENTAL PPO
--- OUTSIDE RECORDS SUMMARY | 2025-04-16 10:33 | XMS_ITS | Encounter Summary ---
Author Organization [employer] Address [address] [facility] [address] [place] [address] Care Team Providers Care Technology Director Name Role Phone Unavailable Primary Care Provider Unavailabl e Encounter Details Date Type Department Care Team (Late st Contact Info) Description 09/25/[address] [facility]ULT [facility] [address] [place] [address] [facility]eng [facility] [place], [place] [phone] Social History Tobacco Use Types Packs/Day Years [...] Description 08/19/2025 10:00 AM EDT Office Visit [facility] [address] [place] [address] Lelia Boateng [address] [place], [place] [phone] documented as of this encounter Visit Diagnoses Not on filedocumented in this encounter
== END 2025-04-16 10:54 | disposition home or self-care (01) ==
LOC: HO.ENCR 10:12
PROVIDERS: PCP Internal Medicine; Visit Provider Physician Assistant
DX: E11.9 Type 2 diabetes mellitus without complications (principal); Z79.4 Long term (current) use of insulin; E78.5 Hyperlipidemia, unspecified; I10 Essential (primary) hypertension; Z13.9 Encounter for screening, unspecified

== ENCOUNTER → 2025-04-16 10:11 | Outpatient (BNVA) | payer OTHER, SELFPAY | PROVIDERS: PCP Internal Medicine; Visit Provider Physician Assistant | DX: E11.21 Type 2 diabetes mellitus with diabetic nephropathy (principal); E11.40 Type 2 diabetes mellitus with diabetic neuropathy, unspecified; E78.5 Hyperlipidemia, unspecified; I10 Essential (primary) hypertension; N25.81 Secondary hyperparathyroidism of renal origin; Z79.899 Other long term (current) drug therapy; Z79.4 Long term (current) use of insulin; E11.29 Type 2 diabetes mellitus with other diabetic kidney complication | CPT/HCPCS: 82947; 83036; 99212 ==

== ENCOUNTER 2025-04-27 13:08 | Outpatient (REF) | payer OTHER, SELFPAY ==
--- OUTSIDE RECORDS SUMMARY | 2025-04-27 13:10 | XMS_ITS | Clinical Summary ---
Author Organization [employer] Address [address] [place] [address] 7[address] [place] [address] Care Team Providers Care Yarn Tester Name Role Phone Unavailable Primary Care Provider [...] LUNCH AND SUPPER 4 Active Continuous Glucose Automation Manager (FreeStyle Blank 3 [place]) device 5 Active Continuous Glucose Sensor (FreeStyle Blank 3 Sensor) misc 5 Active diclofenac (Cataflam) 50 MG tablet 5 Active B-D UF III MINI PEN NEEDLES 31G X 5 MM [facility] [place] USE CUATRO VECES AL D A 4 [...] Description 02/11/2025 1:30 PM EDT Office Visit [facility]ULT D[facility] [address] [place] [address] Vitor Avila DMD 02/04/2025 1:00 PM EST Office Visit [facility] [address] [place] [address] Vitor Avila DMD from Last 3 Months [...] Description 08/19/2025 10:00 AM EDT Office Visit [facility]ULT D[facility] [address] [place] [address] Kade Boatengaris [address] [place] [address] Health Maintenance Due Date Last Done Comments [...] to Health Maintenance Insurance AETNA MEDICARE REPLACEMENT DENTAL-[facility] MEDICAID STAND ADULT DENTAL - AETNA DENTAL PPO
== END 2025-04-27 13:09 | disposition home or self-care (01) ==
LOC: HO.MAMMO 13:08
PROVIDERS: PCP Internal Medicine; Visit Provider Internal Medicine
DX: Z12.31 Encounter for screening mammogram for malignant neoplasm of breast (principal)
CPT/HCPCS: 77063; 77067

== ENCOUNTER → 2025-04-27 13:30 | Outpatient (BNV) | payer OTHER, SELFPAY | PROVIDERS: PCP Internal Medicine; Visit Provider Internal Medicine | DX: Z12.31 Encounter for screening mammogram for malignant neoplasm of breast (principal) | CPT/HCPCS: 77063; 77067 ==

== ENCOUNTER 2025-05-17 14:00 | Outpatient (AMB) | payer OTHER, SELFPAY ==
--- NOTE | 2025-05-17 14:02 | A.OFFPC_ITS ---
Vital Signs 05/17/25 14:03 Height 5 ft 3 in Weight 212 lb BMI 37.6 BP 130/84 Blood Pressure Location Lt brachial Position Sitting Intake Visit Reasons: dm Intake Note: Patient here for a follow up DM [place] Construction Supervisor Required: No Accompanied by: Daughter Allergies No Known Allergies [No Known Allergies*] Allergy (Verified 05/17/25 14:28) Medication List - Last Reconciled 05/17/25 by Juliet Henry MD blood sugar diagnostic (FreeStyle Lite Strips) 1 strip miscellaneous TID 30 days blood-glucose meter (FreeStyle Lite Meter kit) Use daily As directed to check blood sugars blood-glucose sensor (FreeStyle Blank 3 Plus Sensor device) Use daily As directed to monitor glucose blood-glucose,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 apprentice,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 (FreeStyle Blank 3 [place]) Use daily As directed to monitor blood glucose buspirone 7.5 mg PO BID sgjcjdqkew-xbsarrdzuzaxa-tjkw 50-300-40 mg 1 cap PO Q8H PRN 30 days cholecalciferol (vitamin D3) 50 mcg PO DAILY 30 days citalopram 20 mg PO DAILY dapagliflozin propanediol (Farxiga) 10 mg PO DAILY diclofenac potassium 50 mg PO BID 10 days glucose (Dex4 Glucose) 16 grams (4 x 4 gram) PO Q15M PRN insulin degludec (Tresiba FlexTouch U-100 insulin) 70 units (0.7 mL) subcut BEDTIME 30 days insulin lispro (Humalog KwikPen (U-100) Insulin) 15 units (0.15 mL) subcut TID 30 days lancets (FreeStyle Lancets) As directed 3 times a day lancets (FreeStyle Lancets) use daily as directed to check blood glucose latanoprost 0.005% 1 drp ophthalmic (eye) BEDTIME lisinopril 30 mg PO DAILY 90 days lorazepam 0.5 mg PO BID PRN metformin 500 mg PO BID 90 days mirtazapine 40 mg PO BEDTIME paliperidone ER 3 mg PO DAILY pantoprazole 40 mg PO DAILY 90 days pen needle, diabetic (Comfort EZ Pen [place]) As directed injects 4X/day pen needle, diabetic (BD Ultra-Fine Mini Pen Needle) Use 4x daily polyethylene glycol 3350 (Miralax) 238 grams PO ONCE ramelteon 8 mg PO BEDTIME rosuvastatin (Crestor) 40 mg PO DAILY 90 days sumatriptan succinate 25 mg PO Q2-4H PRN 30 days tirzepatide (Mounjaro) 2.5 mg (0.5 mL) subcut QWEEK Tobacco use date assessed: 01/04/25 Fall risk assessment: No Falls in past year Last assessed Fall Risk: 05/17/25 Dental Screening Dental Screen Date: 05/17/25 Did you have a dental visit in the last 12 months?: Yes Did you have a dental problem in the last 6 months where you did not have access to dental care?: No Was dental information given to patient?: Patient has dentist HPI HPI Comments History of Present Illness Details The patient is a 70-year-old female presenting with management of chronic conditions and preventative care. Hypertension has been noted with recent blood pressure readings being lower than previous measurements. The patient is on multiple medications including lisinopril for blood pressure management. The patient has a history of osteoporosis, and there was a discussion about the need for a bone densitometry test. The patient has not had a recent bone density test, and it was noted that it has been a while since the last one was performed. Diabetes mellitus is being managed with multiple medications, including metformin and Farxiga. The last hemoglobin A1c was 7.5, showing improvement from a previous level of 8.5. The patient experiences migraines and uses sumatriptan for management. Gastroesophageal reflux disease is managed with pantoprazole. 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 Dyslipidemia Vitamin D deficiency Diabetes type 2, uncontrolled Surgical History H/O lithotripsy S/P CARISSA-BSO Hx of tubal ligation H/O foot surgery History of appendectomy Hx laparoscopic cholecystectomy Family History Mother Diabetes Father Diabetes Social History Housing: Apartment Alcohol intake: never Patient Tobacco Use Status: Former Tobacco user e-Cigarette/Vaping Use: Never Used Second Hand Smoke Exposure: No service: No Current occupational status: unemployed Cognitive needs: No Hearing needs: No Vision needs: Yes Questionnaire PHQ-9 Over the last 2 weeks, how often have you been bothered by any of the following problems? 1. Little interest or pleasure in doing things: more than half the days 2. Feeling down, depressed, or hopeless: not at all 3. Trouble falling or staying asleep, or sleeping too much: more than half the days 4. Feeling tired or having little energy: more than half the days 5. Poor appetite or overeating: not at all 6. Feeling bad about yourself - or that you are a failure or have let yourself or your family down: not at all 7. Trouble concentrating on things, such as reading the newspaper or watching television: not at all 8. Moving or speaking so slowly that other people could have noticed. Or the opposite - being so fidgety or restless that you have been moving around a lot more than usual: nearly every day 9. Thoughts that you would be better off or of hurting yourself in some way: not at all Total score: 9 Depression Screening Interpretation: Positive Depression Screening Follow-up: Existing condition, In treatment, Community Mental Health Worker F/U and Follow- up Visit Requested Depression Screening Done: Yes 53886 - PHQ-9 Billing: Yes Source: Developed by Drs. Tramaine Cooper, Octavia Lau, Abiodun Mendes and colleagues, with an educational samir from [employer]. Thrive Questionnaire Date Thrive assessed: 05/17/25 I am a: Parent/Caregiver What is your living situation today?: I have a steady place to live Within the past 12 months, did the food you bought not last and you didn't have the money to get more?: I choose not to answer this question Within the past 12 months, did you worry whether your food would run out before you got money to buy more?: I choose not to answer this question Do you have trouble paying for medicines?: I choose not to answer this question Do you have trouble getting transportation to medical appointments?: I choose not to answer this question Do you have trouble paying your heating and electricity bill?: Yes Do you have trouble taking care of your child, family member or friend?: I choose not to answer this question Do you have trouble with day-to-day activities such as bathing, preparing meals, shopping, managing finances, etc.?: I choose not to answer this question Are you currently unemployed and looking for a job?: I choose not to answer this question Are you interested in more education?: I choose not to answer this question Please select the resources that you would like help with: None Currently or been in a relationship where the following occur: I choose not to answer THRIVE Score: 1 AUDIT C Alcohol Use Questionnaire (AUDIT-C) 1. How often do you have a drink containing alcohol?: Never Total Score: 0 SIENNA-7 AMB Questionnaire SIENNA-7 Date SIENNA - 7 assessed: 05/17/25 Feeling nervous, anxious, or on edge: 3 = Nearly every day Not being able to stop or control worryin = Not at all Worrying too much about different things: 0 = Not at all Trouble relaxin = Not at all Being so restless that it is hard to sit still: 0 = Not at all Becoming easily annoyed or irritable: 0 = Not at all Feeling afraid as if something awful might happen: 0 = Not at all Total SIENNA-7 score (0-4 normal; 5-9 mild; 10-14 moderate; 15-21 severe): 3 Source: Developed by Drs. Tramaine Cooper, Octavia Lau, Abiodun Mendes and colleagues, with an educational samir from [employer]. SIENNA-7 Assessment Billing SIENNA-7 Assessment Tool: SIENNA-7 Assessment 69282 Review of Systems Const All systems reviewed & are unremarkable except as noted in HPI and below Card Denies chest pain at rest, Denies chest pain with activity, Denies edema, Denies irregular heart rhythm, Denies claudication, Denies dyspnea, Denies dyspnea on exertion, Denies orthopnea, Denies paroxysmal nocturnal dyspnea and Denies slow heart rate Resp Denies cough, Denies dyspnea and Denies dyspnea on exertion GI Denies abdominal pain, Denies change in bowel habits, Denies excessive flatus, Denies nausea and Denies vomiting Denies urinary incontinence, Denies urinary hesitancy and Denies urinary urgency Musc Denies atrophy, Denies deformity and Denies limited range of motion Skin/Breast Denies bleeding lesions, Denies changing lesions and Denies rash Physical exam (Primary Care) Vital Signs: Last Vital Signs BP 130/84 05/17/25 14:03 BMI result Body Mass Index 37.6 Tobacco/Smoking Status: Tobacco use Status Tobacco use date assessed 01/04/25 05/17/25 14:03 Patient Tobacco Use Status Former Tobacco user 05/17/25 14:03 e-Cigarette/Vaping Use Never Used 05/17/25 14:03 PHQ-9: PHQ-9 Score PHQ-9: Total score 9 05/17/25 21:15 Depression Screening Interpretation: Positive Depression Screening Follow-up: Existing condition, In treatment, Community Mental Health Worker F/U and Follow- up Visit Requested Thrive Assessment: Date of Thrive Assessment Date Thrive assessed 05/17/25 05/17/25 14:03 Currently or been in a relationship where the following occur: I choose not to answer Resp Effort & Inspection: normal respiratory effort Auscultation: clear to auscultation bilaterally Cardio Jugular venous distension: no JVD Rate: regular rate Rhythm: regular rhythm Heart sounds: S1 normal heart sound present and S2 normal heart sound present Extrem General: Yes full ROM Coding Level of Care Code Est Pt Level 4 (01044) Complex EM visit Add On G2211 Diagnoses Hearing loss H91.90 Migraines G43.909 Bipolar disorder F31.9 Type 2 diabetes mellitus, with long-term current use of insulin E11.9; Z79.4 Essential hypertension I10 Hyperlipidemia LDL goal <70 E78.5 Additional Codes SIENNA-7 Assessment Billing - SIENNA-7 Assessment Tool: SIENNA-7 Assessment 62739 ([id number]) PHQ-9 - 60142 - PHQ-9 Billing: Yes ([id number]) Time Spent (min) 23 Assessment & Plan Assessment & Plan (1) Hearing loss: Code(s): H91.90 - Unspecified hearing loss, unspecified ear Category: Medical (2) Migraines: Code(s): G43.909 - Migraine, unspecified, not intractable, without status migrainosus Category: Medical (3) Bipolar disorder: Code(s): F31.9 - Bipolar disorder, unspecified Category: Medical (4) Type 2 diabetes mellitus, with long-term current use of insulin: Code(s): E11.9 - Type 2 diabetes mellitus without complications; Z79.4 - long-term (current) use of insulin Category: Medical (5) Essential hypertension: Code(s): I10 - Essential (primary) hypertension Category: Medical (6) Hyperlipidemia LDL goal <70: Code(s): E78.5 - Hyperlipidemia, unspecified Category: Medical Plan The plan includes managing hypertension with current medications and monitoring blood pressure regularly. A bone densitometry test is planned to assess osteoporosis status, and the patient is advised to follow up with endocrinology for diabetes management. The patient is to continue current diabetes medications, with a focus on maintai lucia or improving the A1c level. For migraines, the patient will continue using sumatriptan as needed. Gastroesophageal reflux disease management will continue with pantoprazole. Preventative care includes scheduling a mammography and ensuring regular follow- ups for chronic conditions. Patient was informed and verbally consented to the use of an ambient scribe for clinic note documentation during this visit. Orders: Orders XR DEXA axial skeleton 05/17/25 Z78.0 - Asymptomatic menopausal state Microalbumin, Random (w Creat) 05/17/25 R80.9 - Proteinuria, unspecified Comprehensive [place]. 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
[2025-05-17 14:03] VITALS: BP 130/84; BMI 37.6
--- OUTSIDE RECORDS SUMMARY | 2025-05-17 15:43 | XMS_ITS | Clinical Summary ---
Author Organization [employer] Address [address] [place] [address] [address] [place] [address] Care Team Providers Care Clinical Operations Leader Name Role Phone Unavailable Primary Care Provider [...] LUNCH AND SUPPER 4 Active Continuous Glucose Social Work Specialist (FreeStyle Blank 3 [place]) device 5 Active Continuous Glucose Sensor (FreeStyle Blank 3 Sensor) misc 5 Active diclofenac (Cataflam) 50 MG tablet 5 Active B-D UF III MINI PEN NEEDLES 31G X 5 MM [facility] [place] CUATRO VECES AL D A 4 [...] disease 09/11/2023 Minimal localized gingival recession 09/11/2023 Immunizations Immunization Administration Dates Next Due DTaP [...] Description 08/19/2025 10:00 AM EDT Office Visit [facility] [address] [place] [address] Tasneem, Lelia [address] [place] [address] Health Maintenance Due Date Last Done Comments [...] Vaccine (3 - season) 2024 04/13/2021, 03/23/2021 Dental X-Ray: Bitewings 08/16/2024 08/15/2023 Influenza Vaccine (Season Ended) 2025 09/20/2022, 08/26/2019, 09/30/2018, Additional history exists Tobacco Screening 02/11/2026 02/11/2025 Dental X-Ray: Full [...] to Health Maintenance Insurance AETNA MEDICARE REPLACEMENT DENTAL-[facility] MEDICAID STAND ADULT DENTAL - AETNA DENTAL PPO
== END 2025-05-17 14:39 | disposition home or self-care (01) ==
LOC: HO.HMCH 14:01
PROVIDERS: PCP Internal Medicine; Visit Provider Internal Medicine
DX: E11.69 Type 2 diabetes mellitus with other specified complication (principal); F31.9 Bipolar disorder, unspecified; Z79.4 Long term (current) use of insulin; G43.909 Migraine, unspecified, not intractable, without status migrainosus; I10 Essential (primary) hypertension; H91.93 Unspecified hearing loss, bilateral; E78.5 Hyperlipidemia, unspecified

== ENCOUNTER → 2025-05-17 14:00 | Outpatient (BNVA) | payer OTHER, SELFPAY | PROVIDERS: PCP Internal Medicine; Visit Provider Internal Medicine | DX: E11.9 Type 2 diabetes mellitus without complications (principal); G43.909 Migraine, unspecified, not intractable, without status migrainosus; H91.90 Unspecified hearing loss, unspecified ear; I10 Essential (primary) hypertension; F31.9 Bipolar disorder, unspecified; E78.5 Hyperlipidemia, unspecified; Z79.4 Long term (current) use of insulin; Z78.0 Asymptomatic menopausal state; R80.9 Proteinuria, unspecified; E55.9 Vitamin D deficiency, unspecified | CPT/HCPCS: 96127; 99212 ==

== ENCOUNTER 2025-05-21 10:46 | Outpatient (AMB) | payer OTHER, SELFPAY ==
[2025-05-21 10:51] VITALS: BP 120/68; PULSE 88; O2SAT 98; BMI 38.2
--- NOTE | 2025-05-21 10:51 | MHC.OFFVIS ---
Vital Signs 05/21/25 10:51 Height 5 ft 3 in Weight 215 lb 13.321 oz BMI 38.2 BP 120/68 Blood Pressure Location Rt brachial Position Sitting Pulse 88 Pulse Source Pulse Oximeter Pulse Oximetry (%) 98 Oxygen Delivery Method Room Air Intake Visit Reasons: T2DM Intake Note: Patient present today for Type 2 Diabetes Mellitus Last Diabetic eye exam: 04/2025 Last Podiatry Visit: Doesn't have one Random Glucose: 177 mg/dl HgA1C: 7.5% 04/16/25 Store Detective Required: Yes Store Detective Language: Senior Cytotechnologist Services: Store Detective Present Information Interpreted: non-clinical & clinical Accompanied by: Daughter Allergies No Known Allergies (No Known Allergies*) Allergy (Verified 05/21/25 10:55) Medication List - Last Reconciled 05/21/25 by Jennifer Villarreal PA-C blood sugar diagnostic (FreeStyle Lite Strips) 1 strip miscellaneous TID 30 days blood-glucose meter (FreeStyle Lite Meter kit) Use daily As directed to check blood sugars blood-glucose sensor (FreeStyle Blank 3 Plus Sensor device) Use daily As directed to monitor glucose blood-glucose,customer management specialist,cont (FreeStyle Blank 3 [place]) Use daily As directed to monitor blood glucose buspirone 7.5 mg PO BID fuawunvykm-kyaqvgtthdnwo-ievq 50-300-40 mg 1 cap PO Q8H PRN 30 days cholecalciferol (vitamin D3) 50 mcg PO DAILY 30 days citalopram 20 mg PO DAILY dapagliflozin propanediol (Farxiga) 10 mg PO DAILY diclofenac potassium 50 mg PO BID 10 days glucose (Dex4 Glucose) 16 grams (4 x 4 gram) PO Q15M PRN insulin degludec (Tresiba FlexTouch U-100 insulin) 70 units (0.7 mL) subcut BEDTIME 30 days insulin lispro (Humalog KwikPen (U-100) Insulin) 15 units (0.15 mL) subcut TID 30 days lancets (FreeStyle Lancets) As directed 3 times a day lancets (FreeStyle Lancets) use daily as directed to check blood glucose latanoprost 0.005% 1 drp ophthalmic (eye) BEDTIME lisinopril 30 mg PO DAILY 90 days lorazepam 0.5 mg PO BID PRN metformin 500 mg PO BID 90 days mirtazapine 40 mg PO BEDTIME paliperidone ER 3 mg PO DAILY pantoprazole 40 mg PO DAILY 90 days pen needle, diabetic (Comfort EZ Pen [place]) As directed injects 4X/day pen needle, diabetic (BD Ultra-Fine Mini Pen Needle) Use 4x daily polyethylene glycol 3350 (Miralax) 238 grams PO ONCE ramelteon 8 mg PO BEDTIME rosuvastatin (Crestor) 40 mg PO DAILY 90 days sumatriptan succinate 25 mg PO Q2-4H PRN 30 days HPI HPI T2DM: Details: Patient is a 70-year-old female with a significant past medical history of depression, cognitive impairment, hyperlipidemia, hypertension, secondary hyperparathyroidism, type 2 diabetes uncontrolled presenting today for a diabetic follow-up. Her daughter is here today to help with translation. Endo: DM-she was diagnosed with type 2 diabetes around 2009. Her A1cis 7.5. She is currently on metformin 500 mg twice a day, Tresiba 60 units nightly and Humalog 12 units with breakfast, lunch and supper, She is on Farxiga 10 mg daily, and at our last visit was started on Mounjaro 2.5 mg weekly. No nausea with mounjaro, tolerating well, no appetite suppression. Ozempic caused nausea. She has tried trulicity and Bydureon BCise without improvement of glucose. The trulicity caused nausea. She gets bruising and pain with the injection of BCise. She states that it feels very ineffective and the shots are very painful for her. She does not know why as giving herself insulin and trying Trulicity in the past was not painful. She does not tolerate higher doses of metformin. CGM- Blank download shows says sensor is active 7% of the time. 63% range (previously 35%), 28% hyperglycemia (previously 48%), 9% very hyperglycemic (previously 23%)and no hypoglycemia. - States that this sensor has limited data because it fell off of her. Her daughter is going to get the smye-gjo-njifqow tape. No hypoglycemia-states that she has not had any low blood sugars in quite some time and also would corrected in the past with juice. Complications:, nephropathy, neuropathy, no CVA, no CAD, PVD. She is on an DEON-inhibitor and statin Last ophthalmology evaluation: 05/20/2024 She denies nocturia , polyuria and polydipsia, she denies numbness, tingling, burning pain, blurred vision. CV: Blood pressure today in the office is 120/68.. She is on 30 mg of lisinopril daily. Tolerates this well. Cholesterol is controlled with Crestor. Last LDL was WNL but not checked since 2021 [facility] Medical History (Updated 05/21/25 @ 10:57 by Jennifer Villarreal PA-C) Mild recurrent major depression Physical exam Cognitive impairment Non-proliferative diabetic retinopathy, mild, left eye Hyperparathyroidism due to vitamin D deficiency Osteopenia Obesity (BMI 30-39.9) Non-toxic multinodular goiter Dyslipidemia Vitamin D deficiency Diabetes type 2, uncontrolled Surgical History H/O lithotripsy S/P CARISSA-BSO Hx of tubal ligation H/O foot surgery History of appendectomy Hx laparoscopic cholecystectomy Family History Mother Diabetes Father Diabetes Social History Housing: Apartment Alcohol intake: never Patient Tobacco Use Status: Former Tobacco user e-Cigarette/Vaping Use: Never Used Second Hand Smoke Exposure: No service: No Current occupational status: unemployed Cognitive needs: No Hearing needs: No Vision needs: Yes Physical Exam Vital Signs: Last Vital Signs Pulse 88 05/21/25 10:51 BP 120/68 05/21/25 10:51 Pulse Ox 98 05/21/25 10:51 Oxygen Delivery Method Room Air 05/21/25 10:51 BMI result Body Mass Index 38.2 Const Orientation/consciousness: patient oriented x3 HEENT Ears: hearing grossly normal bilaterally Neck Thyroid: Thyroid normal Lymphatic: no lymphadenopathy noted Resp Auscultation: clear to auscultation bilaterally Cardio Rate: regular rate Rhythm: regular rhythm Heart sounds: S1 normal heart sound present and S2 normal heart sound present Skin General skin exam: no rashes or lesions noted Neuro General: patient oriented x3, gait normal and no focal motor deficits Results Reviewed Results Reviewed: Laboratory Tests 10/05/24 01/04/25 04/16/25 13:22 13:36 10:26 Glucose (Clinic) 167 H Hgb A1c (Clinic) 8.9 H 8.5 H 04/16/25 10:31 Glucose (Clinic) Hgb A1c (Clinic) 7.5 H Assessment & Plan Assessment & Plan (1) Diabetes type 2, uncontrolled: Code(s): E11.65 - Type 2 diabetes mellitus with hyperglycemia Category: Medical Qualifiers: Glycemic state: with hyperglycemia Qualified Code(s): E11.65 - Type 2 diabetes mellitus with hyperglycemia Plan: Increase Mounjaro 5 mg weekly. Continue Tresiba 70 units, continue Humalog 15 units 3 times a day, continue metformin 500 mg twice a day and Farxiga 10 mg daily. Advised to complete labs. Short term follow up in 2-3 months. Sooner if needed. (2) Obesity (BMI 30-39.9): Code(s): E66.9 - Obesity, unspecified Category: Medical Plan: We will increase Mounjaro. We discussed diet and lifestyle modifications. (3) Essential hypertension: Code(s): I10 - Essential (primary) hypertension Category: Medical Plan: wnl continue current treatment plan (4) Hyperlipidemia LDL goal <70: Code(s): E78.5 - Hyperlipidemia, unspecified Category: Medical Plan: continue Crestor. Reminded patient that labs are ordered. Orders: Orders Comprehensive [place]. Panel Fast Today E11.65 - Type 2 diabetes mellitus with hyperglycemia, E78.5 - Hyperlipidemia, unspecified, I10 - Essential (primary) hypertension Lipid Panel Today E11.65 - Type 2 diabetes mellitus with hyperglycemia, E78.5 - Hyperlipidemia, unspecified, I10 - Essential (primary) hypertension Hemoglobin A1c Today E11.65 - Type 2 diabetes mellitus with hyperglycemia, E78.5 - Hyperlipidemia, unspecified, I10 - Essential (primary) hypertension, R73.01 - Impaired fasting glucose Microalbumin, Random (w Creat) Today E11.65 - Type 2 diabetes mellitus with hyperglycemia, E78.5 - Hyperlipidemia, unspecified, I10 - Essential (primary) hypertension Medications: New tirzepatide (Mounjaro) 5 mg (0.5 mL) subcut QWEEK 2 mL 3RF Changed From lancets (FreeStyle Lancets) use daily as directed to check blood glucose 100 ea 3RF To lancets (FreeStyle Lancets) use three times daily as directed to check blood glucose 100 ea 3RF Refilled dapagliflozin propanediol (Farxiga) 10 mg PO DAILY 90 tabs 3RF blood sugar diagnostic (FreeStyle Lite Strips) 1 strip miscellaneous TID 100 strips 4RF 30 days E11.65 - Type 2 diabetes mellitus with hyperglycemia metformin 500 mg PO BID 180 tabs 1RF 90 days E11.65 - Type 2 diabetes mellitus with hyperglycemia Discontinued lancets (FreeStyle Lancets) Discontinued Reason: Doctor's Order As directed 3 times a day 100 ea 0RF Coding Level of Care Code Est Pt Level 4 (46420) Complex EM visit Add On G2211 Diagnoses Uncontrolled type 2 diabetes mellitus with hyperglycemia E11.65 Glycemic state: with hyperglycemia Obesity (BMI 30-39.9) E66.9 Essential hypertension I10 Hyperlipidemia LDL goal <70 E78.5
[2025-05-21 11:00] LABS: Glucose, Whole Blood 177 mg/dL (60-115)
--- OUTSIDE RECORDS SUMMARY | 2025-05-21 11:13 | XMS_ITS | Clinical Summary ---
Author Organization [employer] Address [address] [place] [address] [address] [place] [address] Care Team Providers Care Database Manager Name Role Phone Unavailable Primary Care Provider [...] LUNCH AND SUPPER 4 Active Continuous Glucose Senior Web Architect (FreeStyle Blank 3 [place]) device 5 Active Continuous Glucose Sensor (FreeStyle Blank 3 Sensor) misc 5 Active diclofenac (Cataflam) 50 MG tablet 5 Active B-D UF III MINI PEN NEEDLES 31G X 5 MM [facility] [place] USE CUATRO VECES AL [...] Description 08/19/2025 10:00 AM EDT Office Visit [facility] ADULT D[facility]AL [address] [place] [address] Tasneem, Lelia [address] [place] [address] Health Maintenance Due Date Last Done Comments [...] to Health Maintenance Insurance AETNA MEDICARE REPLACEMENT DENTAL-[facility] [address] MEDICAID STAND ADULT DENTAL - AETNA DENTAL PPO
== END 2025-05-21 11:16 | disposition home or self-care (01) ==
LOC: HO.ENCR 10:47
PROVIDERS: PCP Internal Medicine; Visit Provider Physician Assistant
DX: E11.65 Type 2 diabetes mellitus with hyperglycemia (principal); E66.9 Obesity, unspecified; I10 Essential (primary) hypertension; E78.5 Hyperlipidemia, unspecified

== ENCOUNTER → 2025-05-21 10:46 | Outpatient (BNVA) | payer OTHER, SELFPAY | PROVIDERS: PCP Internal Medicine; Visit Provider Physician Assistant | DX: E11.65 Type 2 diabetes mellitus with hyperglycemia (principal); E11.21 Type 2 diabetes mellitus with diabetic nephropathy; E11.40 Type 2 diabetes mellitus with diabetic neuropathy, unspecified; E66.9 Obesity, unspecified; I10 Essential (primary) hypertension; E78.5 Hyperlipidemia, unspecified; Z79.84 Long term (current) use of oral hypoglycemic drugs; Z79.4 Long term (current) use of insulin; Z79.899 Other long term (current) drug therapy | CPT/HCPCS: 82947; 99212 ==

== ENCOUNTER 2025-06-09 14:24 | Outpatient (REF) | payer OTHER, SELFPAY ==
--- OUTSIDE RECORDS SUMMARY | 2025-06-09 14:59 | XMS_ITS | Clinical Summary ---
Author Organization [employer] Address [address] [place] [address] [address] [place] [address] Care Team Providers Care Technical Illustrator Name Role Phone Unavailable Primary Care Provider [...] LUNCH AND SUPPER 4 Active Continuous Glucose Manager Semiconductor (FreeStyle Blank 3 [place]) device 5 Active Continuous Glucose Sensor (FreeStyle Blank 3 Sensor) misc 5 Active diclofenac (Cataflam) 50 MG tablet 5 Active B-D UF III MINI PEN NEEDLES 31G X 5 MM [facility] [place] CUATRO VECES AL D A 4 [...] Description 08/19/2025 10:00 AM EDT Office Visit [facility] ADULT DENTAL [address] [place] [address] Tasneem, Lelia [address] [place] [address] Health Maintenance Due Date Last Done Comments [...] Dental X-Ray: [facility] 08/16/2024 08/15/2023 Influenza Vaccine (#1) 2025 , 08/26/2019, 09/30/2018, Additional history exists Tobacco Screening [...] to Health Maintenance Insurance AETNA MEDICARE REPLACEMENT DENTAL-[facility] MEDICAID STAND ADULT DENTAL - AETNA DENTAL PPO
== END 2025-06-09 14:25 | disposition home or self-care (01) ==
LOC: HO.SH 14:24
PROVIDERS: Visit Provider Internal Medicine
DX: Z01.118 Encounter for examination of ears and hearing with other abnormal findings (principal); H90.3 Sensorineural hearing loss, bilateral
CPT/HCPCS: 92557; 92567

== ENCOUNTER 2025-06-10 09:28 | Outpatient (AMB) | payer OTHER, SELFPAY ==
[2025-06-10 09:34] VITALS: BP 130/70; PULSE 88; O2SAT 96; BMI 38.3
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
--- OUTSIDE RECORDS SUMMARY | 2025-06-10 09:54 | XMS_ITS | Clinical Summary ---
Author Organization [employer] Address [address] [place] [address] [address] [place] [address] Care Team Providers Care Traveling Sales Executive Name Role Phone Unavailable Primary Care Provider [...] LUNCH AND SUPPER 4 Active Continuous Glucose Line Crewman (FreeStyle Blank 3 [place]) device 5 Active Continuous Glucose Sensor (FreeStyle Blank 3 Sensor) misc 5 Active diclofenac (Cataflam) 50 MG tablet 5 Active B-D UF III MINI PEN NEEDLES 31G X 5 MM [facility] [place] CUATRO VECES AL D A 4 [...] Description 08/19/2025 10:00 AM EDT Office Visit [facility] ADULT DENTAL [address] [place] [address] Tasneem, Lelia [address] [place] [address] Health Maintenance Due Date Last Done Comments [...] to Health Maintenance Insurance AETNA MEDICARE REPLACEMENT DENTAL-[facility] MEDICAID STAND ADULT DENTAL - AETNA DENTAL PPO
== END 2025-06-10 10:24 | disposition home or self-care (01) ==
LOC: HO.HSMS 09:29
PROVIDERS: PCP Internal Medicine; Visit Provider Psychiatry & Neurology Neurology
DX: G43.909 Migraine, unspecified, not intractable, without status migrainosus (principal); R41.89 Other symptoms and signs involving cognitive functions and awareness; R06.83 Snoring; G47.10 Hypersomnia, unspecified
CPT/HCPCS: 99204

== ENCOUNTER → 2025-06-10 09:28 | Outpatient (BNVA) | payer OTHER, SELFPAY | PROVIDERS: PCP Internal Medicine; Visit Provider Psychiatry & Neurology Neurology | DX: R41.89 Other symptoms and signs involving cognitive functions and awareness (principal); G43.909 Migraine, unspecified, not intractable, without status migrainosus; R06.83 Snoring; G47.10 Hypersomnia, unspecified; Z79.4 Long term (current) use of insulin; Z79.899 Other long term (current) drug therapy | CPT/HCPCS: 99202 ==

== ENCOUNTER 2025-08-23 10:44 | Outpatient (AMB) | payer OTHER, SELFPAY ==
[2025-08-23 10:52] VITALS: BP 102/64; PULSE 92; O2SAT 96; BMI 38.6
--- NOTE | 2025-08-23 10:52 | A.OFFVIS_ITS ---
Vital Signs 08/23/25 10:52 Height 5 ft 3 in Weight 217 lb 13.067 oz BMI 38.6 BP 102/64 Blood Pressure Location Lt brachial Position Sitting Pulse 92 Pulse Source Pulse Oximeter Pulse Oximetry (%) 96 Oxygen Delivery Method Room Air Intake Visit Reasons: Type 2 dm Intake Note: Patient present today for Type 2 Diabetes Mellitus Last Diabetic eye exam: Last exam was on 06/2025 Last Podiatry Visit: Doesn't have one Random Glucose: 144 mg/dl HgA1C: 8.2% Splicing Machine Operator Automatic Required: Yes Splicing Machine Operator Automatic Language: Leadership Development Instructor Services: Splicing Machine Operator Automatic Offered & Declined Accompanied by: Daughter Allergies No Known Allergies (No Known Allergies*) Allergy (Verified 08/23/25 11:01) Medication List - Last Reconciled 08/23/25 by Jennifer Villarreal PA-C blood sugar diagnostic (OneTouch Ultra Test strips) Use daily As directed to monitor blood glucose blood sugar diagnostic (FreeStyle Lite Strips) 1 strip miscellaneous TID 30 days blood-glucose meter (StraighterLineTouch Ultra2 Meter) Use daily As directed to monitor blood sugars. blood-glucose meter (FreeStyle Lite Meter kit) Use daily As directed to check blood sugars blood-glucose sensor (FreeStyle Blank 3 Plus Sensor device) Use daily As directed to monitor glucose blood-glucose,linseed oil temperer,cont (FreeStyle Blank 3 [place]) Use daily As directed to monitor blood glucose buspirone 7.5 mg PO BID bdaofulrqs-smjrllcumohaz-xfjj 50-300-40 mg 1 cap PO Q8H PRN 30 days cholecalciferol (vitamin D3) 50 mcg PO DAILY 30 days citalopram 20 mg PO DAILY dapagliflozin propanediol (Farxiga) 10 mg PO DAILY diclofenac potassium 50 mg PO BID 10 days glucose (Dex4 Glucose) 16 grams (4 x 4 gram) PO Q15M PRN insulin degludec (Tresiba FlexTouch U-100 insulin) 70 units (0.7 mL) subcut BEDTIME 30 days insulin lispro (Humalog KwikPen (U-100) Insulin) 15 units (0.15 mL) subcut TID 30 days lancets (FreeStyle Lancets) use three times daily as directed to check blood glucose lancets (Estrogen Gene Testuch UltraSoft 2 Lancet) use daily As directed to monitor blood sugars latanoprost 0.005% 1 drp ophthalmic (eye) BEDTIME lisinopril 30 mg PO DAILY 90 days lorazepam 0.5 mg PO BID PRN metformin 500 mg PO BID 90 days mirtazapine 40 mg PO BEDTIME paliperidone ER 3 mg PO DAILY pantoprazole 40 mg PO DAILY 90 days pen needle, diabetic (Comfort EZ Pen [place]) As directed injects 4X/day pen needle, diabetic (BD Ultra-Fine Mini Pen Needle) Use 4x daily polyethylene glycol 3350 (Miralax) 238 grams PO ONCE ramelteon 8 mg PO BEDTIME rosuvastatin (Crestor) 40 mg PO DAILY 90 days sumatriptan succinate 25 mg PO Q2-4H PRN 30 days tirzepatide (Mounjaro) 5 mg (0.5 mL) subcut QWEEK HPI HPI Type 2 dm: Details: Patient is a 70-year-old female with a significant past medical history of depression, cognitive impairment, hyperlipidemia, hypertension, secondary hyperparathyroidism, type 2 diabetes uncontrolled presenting today for a diabetic follow-up. Her daughter is here today to help with translation. Endo: DM-she was diagnosed with type 2 diabetes around 2009. Her A1c is 8.2. She is currently on metformin 500 mg twice a day, Tresiba 70 units nightly and Humalog 15 units with breakfast, lunch and supper, She is on Farxiga 10 mg daily, and at our last visit was started on Mounjaro 5 mg weekly. No nausea with mounjaro, tolerating well, no appetite suppression. Ozempic caused nausea. She has tried trulicity and Bydureon BCise without improvement of glucose. The trulicity caused nausea. She gets bruising and pain with the injection of BCise. She states that it feels very ineffective and the shots are very painful for her. She does not know why as giving herself insulin and trying Trulicity in the past was not painful. She does not tolerate higher doses of metformin. CGM- Blank download shows says sensor is active 76% of the time. 55% range (previously 35%), % hyperglycemia (previously 48%), 9% very hyperglycemic (previously 23%)and no hypoglycemia. Her diet is very limited per daughter. Patient does not like to eat protein and diet in carbohydrates. No hypoglycemia-states that she has not had any low blood sugars in quite some time and also would corrected in the past with juice. Complications:, nephropathy, neuropathy, no CVA, no CAD, PVD. She is on an DEON-inhibitor and statin Last ophthalmology evaluation: 05/20/2024 She denies nocturia , polyuria and polydipsia, she denies numbness, ti ngling, burning pain, blurred vision. CV: Blood pressure today in the office is 102/64. She is on 30 mg of lisinopril daily. Tolerates this well. Cholesterol is controlled with Crestor. Last LDL was WNL but not checked since 2021 [facility] Medical History (Updated 08/23/25 @ 11:00 by Jennifer Villarreal PA-C) Hypersomnia Snoring Mild recurrent major depression Physical exam Cognitive impairment Non-proliferative diabetic retinopathy, mild, left eye Hyperparathyroidism due to vitamin D deficiency Osteopenia Obesity (BMI 30-39.9) Non-toxic multinodular goiter Dyslipidemia Vitamin D deficiency Diabetes type 2, uncontrolled Surgical History H/O lithotripsy S/P CARISSA-BSO Hx of tubal ligation H/O foot surgery History of appendectomy Hx laparoscopic cholecystectomy Family History Mother Diabetes Father Diabetes Social History Housing: Apartment Alcohol intake: never Patient Tobacco Use Status: Former Tobacco user e-Cigarette/Vaping Use: Never Used Second Hand Smoke Exposure: No service: No Current occupational status: unemployed Cognitive needs: No Hearing needs: No Vision needs: Yes Physical Exam Vital Signs: Last Vital Signs Pulse 92 08/23/25 10:52 BP 102/64 08/23/25 10:52 Pulse Ox 96 08/23/25 10:52 Oxygen Delivery Method Room Air 08/23/25 10:52 BMI result Body Mass Index 38.6 Const Orientation/consciousness: patient oriented x3 HEENT Ears: hearing grossly normal bilaterally Neck Thyroid: Thyroid normal Lymphatic: no lymphadenopathy noted Resp Auscultation: clear to auscultation bilaterally Cardio Rate: regular rate Rhythm: regular rhythm Heart sounds: S1 normal heart sound present and S2 normal heart sound present Skin General skin exam: no rashes or lesions noted Neuro General: patient oriented x3, gait normal and no focal motor deficits Results AMB Hemoglobin A1c AMB Hemoglobin A1c 8.2 % Last Edit by ANTOINE Leung on 08/23/25 11:15 Results Reviewed Results Reviewed: Laboratory Last Values Glucose (Clinic) 144 mg/dL (60-115) H 08/23/25 11:05 Laboratory Tests 10/05/24 01/04/25 04/16/25 13:22 13:36 10:31 Glucose (Clinic) Hgb A1c (Clinic) 8.9 H 8.5 H 7.5 H 05/21/25 10:57 Glucose (Clinic) 177 H Hgb A1c (Clinic) Assessment & Plan Assessment & Plan (1) Type 2 diabetes mellitus, with long-term current use of insulin: Code(s): E11.9 - Type 2 diabetes mellitus without complications; Z79.4 - MCC (current) use of insulin Category: Medical Qualifiers: Diabetes mellitus complication status: with hyperglycemia Qualified Code(s): E11.65 - Type 2 diabetes mellitus with hyperglycemia; Z79.4 - MCC (current) use of insulin Plan: Continue metformin 500 mg twice daily Continue Farxiga 10 mg daily Continue Tresiba 70 units daily Increase Humalog to 18 units with meals Increase Mounjaro to 7.5 mg weekly Advised three-month follow up. Sooner if needed. Advised patient to complete labs prior to appointment. (2) Essential hypertension: Code(s): I10 - Essential (primary) hypertension Category: Medical Plan: WNL. Continue current regimen (3) Hyperlipidemia LDL goal <70: Code(s): E78.5 - Hyperlipidemia, unspecified Category: Medical Plan: Advised patient to get labs as previously ordered Orders: Orders AMB Hemoglobin A1c Today E11.65 - Type 2 diabetes mellitus with hyperglycemia, Z13.9 - Encounter for screening, unspecified, Z79.4 - MCC (current) use of insulin Medications: New tirzepatide (Mounjaro) 7.5 mg (0.5 mL) subcut QWEEK 2 mL 4RF Changed From insulin lispro (Humalog KwikPen (U-100) Insulin) with breakfast, lunch and supper 15 units (0.15 mL) subcut TID 30 days 13.5 mL 4RF To insulin lispro (Humalog KwikPen (U-100) Insulin) with breakfast, lunch and supper 18 units (0.18 mL) subcut TID 45 mL 3RF 30 days Refilled blood sugar diagnostic (OneTouch Ultra Test strips) Use daily As directed to monitor blood glucose 100 ea 3RF dapagliflozin propanediol (Farxiga) 10 mg PO DAILY 90 tabs 3RF Discontinued pen needle, diabetic (Comfort EZ Pen [place]) Discontinued Reason: Doctor's Order As directed injects 4X/day 150 ea 5RF tirzepatide (Mounjaro) Discontinued Reason: Doctor's Order 5 mg (0.5 mL) subcut QWEEK 2 mL 3RF lancets (FreeStyle Lancets) Discontinued Reason: Duplicate use three times daily as directed to check blood glucose 100 ea 3RF pen needle, diabetic (BD Ultra-Fine Mini Pen Needle) Discontinued Reason: Doctor's Order Use 4x daily 200 ea 5RF blood-glucose meter (FreeStyle Lite Meter kit) Discontinued Reason: Doctor's Order Use daily As directed to check blood sugars 1 ea 0RF E11.22 - Type 2 diabetes mellitus with diabetic chronic kidney disease, E11.9 - Type 2 diabetes mellitus without complications, Z79.4 - terminal press operator (current) use of insulin blood sugar diagnostic (FreeStyle Lite Strips) Discontinued Reason: Doctor's Order 1 strip miscellaneous TID 30 days 100 strips 4RF E11.65 - Type 2 diabetes mellitus with hyperglycemia Coding Level of Care Code Est Pt Level 4 (51685) Complex EM visit Add On G2211 Diagnoses Type 2 diabetes mellitus with hyperglycemia, with long-term current use of insulin E11.65; Z79.4 Diabetes mellitus complication status: with hyperglycemia Essential hypertension I10 Hyperlipidemia LDL goal <70 E78.5
[2025-08-23 11:09] LABS: Glucose, Whole Blood 144 mg/dL (60-115)
--- OUTSIDE RECORDS SUMMARY | 2025-08-23 13:11 | XMS_ITS | Clinical Summary ---
Author Organization [employer] Address [address] [place] [address] [address] [place] [address] Care Team Providers Care Sewer Separation Designer Name Role Phone Unavailable Primary Care Provider [...] LUNCH AND SUPPER 4 Active Continuous Glucose Family Caseworker (FreeStyle Blank 3 Center) device 5 Active Continuous Glucose Sensor (FreeStyle [...] Mass Index - - Plan of Treatment Health Maintenance Due Date Last Done Comments [...] Exam 02/14/2024 08/15/2023 Dental Prophylaxis 03/13/2024 09/11/2023 Dental X-Ray: Bitewings 08/16/2024 08/15/2023 COVID-19 Vaccine ( season) 2025 04/13/2021, 03/23/2021 Influenza Vaccine (#1) 2025 2, 08/26/2019, 09/30/2018, Additional history exists Tobacco Screening [...] to Health Maintenance Insurance [employer] MED[employer]ARE REPLACEMENT DENTAL-[facility] MEDICAID STAND ADULT DENTAL - [employer] DENTAL PPO
--- OUTSIDE RECORDS SUMMARY | 2025-08-23 13:11 | XMS_ITS | Encounter Summary ---
Author Organization [employer] Address [address] [facility] [address] [place] [address] Care Team Providers Care Pvc Loader Name Role Phone Unavailable Primary Care Provider Unavailabl e Encounter Details Date Type Department Care Team (Late st Contact Info) Description 09/25/2023 Abstract [facility]ULT [facility] [address] [place] [address] Lelia Boateng [address] [place] [address] Social History Tobacco Use Types Packs/Day Years [...] as of this encounter Plan of Treatment Not on file documented as of this encounter Visit Diagnoses Not on filedocumented in this encounter
== END 2025-08-23 11:27 | disposition home or self-care (01) ==
LOC: HO.ENCR 10:45
PROVIDERS: PCP Internal Medicine; Visit Provider Physician Assistant
DX: E11.65 Type 2 diabetes mellitus with hyperglycemia (principal); Z79.4 Long term (current) use of insulin; I10 Essential (primary) hypertension; E78.5 Hyperlipidemia, unspecified; Z13.9 Encounter for screening, unspecified

== ENCOUNTER → 2025-08-23 10:44 | Outpatient (BNVA) | payer OTHER, SELFPAY | PROVIDERS: PCP Internal Medicine; Visit Provider Physician Assistant | DX: E11.65 Type 2 diabetes mellitus with hyperglycemia (principal); E11.22 Type 2 diabetes mellitus with diabetic chronic kidney disease; I12.9 Hypertensive chronic kidney disease with stage 1 through stage 4 chronic kidney disease, or unspecified chronic kidney disease; N18.9 Chronic kidney disease, unspecified; E78.5 Hyperlipidemia, unspecified; Z79.4 Long term (current) use of insulin; Z79.84 Long term (current) use of oral hypoglycemic drugs | CPT/HCPCS: 82947; 83036; 99212 ==

== ENCOUNTER 2025-08-23 11:40 | Outpatient (REF) | payer OTHER, SELFPAY ==
[2025-08-23 14:01] LABS: Alanine Aminotransferase 58 U/L (0-31); Albumin Level 3.7 g/dL (3.5-5.0); Alkaline Phosphatase 109 U/L (39-117); Anion Gap 9 (12-20); Aspartate Amino Transferase 50 U/L (5-31); Blood Urea Nitrogen 12 mg/dL (9-16); Calcium 8.9 mg/dL (8.4-10.2); Carbon Dioxide 27 mmol/L (22-29); Chloride 109 mmol/L (96-108); Cholesterol 196 mg/dL (<200); Estimated Glomerular Filt Rate > 60; HDL Cholesterol 46 mg/dL (>40); Potassium 3.9 mmol/L (3.3-5.1); Sodium 141 mmol/L (135-145); Total Protein 7.0 g/dL (6.5-8.0); Triglycerides 118 mg/dL (<150)
== END 2025-08-23 11:41 | disposition home or self-care (01) ==
LOC: HO.10HDL 11:40
PROVIDERS: Visit Provider Internal Medicine
DX: R80.9 Proteinuria, unspecified (principal); E11.9 Type 2 diabetes mellitus without complications; E55.9 Vitamin D deficiency, unspecified; E78.5 Hyperlipidemia, unspecified; Z79.4 Long term (current) use of insulin
CPT/HCPCS: 36415; 80053; 80061; 82043; 82306; 82570

== ENCOUNTER → 2025-08-24 12:51 | Outpatient (REF) | payer OTHER, SELFPAY ==
--- OUTSIDE RECORDS SUMMARY | 2025-08-24 15:43 | XMS_ITS | Clinical Summary ---
Author Organization [employer] Address [address] [place] [address] [address] [place] [address] Care Team Providers Care Human Capital Manager Name Role Phone Unavailable Primary Care [...] LUNCH AND SUPPER 4 Active Continuous Glucose Tennis Court Attendant (FreeStyle Blank 3 [place]) device 5 Active Continuous Glucose Sensor (FreeStyle Blank 3 Sensor) misc 5 Active diclofenac (Cataflam) 50 MG tablet 5 Active B-D UF III MINI PEN NEEDLES 31G X 5 MM [facility] [place] CUATRO VECES AL D A 4 [...] to Health Maintenance Insurance [employer] MEDICARE REPLACEMENT DENTAL-[facility] MEDICAID STAND ADULT DENTAL - AETNA DENTAL PPO
--- OUTSIDE RECORDS SUMMARY | 2025-08-24 15:43 | XMS_ITS | Encounter Summary ---
Author Organization [employer] Address [address] [facility] [address] [place] [address] Care Team Providers Care Food Beverage Supervisor Name Role Phone Unavailable Primary Care Provider Unavailabl e Encounter Details Date Type Department Care Team (Late st Contact Info) Description 09/25/2023 Abstract [facility] ADULT DENTAL [address] [place] [address] Lelia Boateng [address] [place] [address] Social History Tobacco Use Types Packs/Day Years [...]
== END ==
LOC: HO.SL 12:51
PROVIDERS: PCP Internal Medicine; Visit Provider Psychiatry & Neurology Neurology
DX: R06.83 Snoring (principal); G47.10 Hypersomnia, unspecified
CPT/HCPCS: 95806

== ENCOUNTER → 2025-08-24 13:05 | Outpatient (BNV) | payer OTHER, SELFPAY | PROVIDERS: PCP Internal Medicine; Visit Provider Psychiatry & Neurology Neurology | DX: G47.33 Obstructive sleep apnea (adult) (pediatric) (principal) | CPT/HCPCS: 95806 ==

== ENCOUNTER 2025-08-26 12:45 | Outpatient (AMB) | payer OTHER, SELFPAY ==
--- NOTE | 2025-08-26 12:50 | MHC.PC.OV ---
Vital Signs 08/26/25 12:51 Height 5 ft 3 in Weight 214 lb BMI 37.9 BP 122/78 Blood Pressure Location Lt brachial Position Sitting Pulse 94 Pulse Source Pulse Oximeter Pulse Oximetry (%) 95 Oxygen Delivery Method Room Air Intake Visit Reasons: Annual Exam- A1C needed Hydraulic Jack Adjuster Required: No Accompanied by: Self / Same As Patient Allergies No Known Allergies (No Known Allergies*) Allergy (Verified 08/26/25 13:13) Medication List - Last Reconciled 08/26/25 by Juliet Henry MD blood sugar diagnostic (Honeyuch Ultra Test strips) Use daily As directed to monitor blood glucose blood-glucose meter (Honeyuch Ultra2 Meter) Use daily As directed to monitor blood sugars. blood-glucose sensor (SmartmarketStyle Blank 3 Plus Sensor device) Use daily As directed to monitor glucose blood-glucose,purse seining hand,cont (FreeStyle Blank 3 [place]) Use daily As directed to monitor blood glucose buspirone 7.5 mg PO BID klvgtdfxvk-ptakenqmgfawj-nacu 50-300-40 mg 1 cap PO Q8H PRN 30 days cholecalciferol (vitamin D3) 50 mcg PO DAILY 30 days citalopram 20 mg PO DAILY dapagliflozin propanediol (Farxiga) 10 mg PO DAILY diclofenac potassium 50 mg PO BID 10 days glucose (Dex4 Glucose) 16 grams (4 x 4 gram) PO Q15M PRN insulin degludec (Tresiba FlexTouch U-100 insulin) 70 units (0.7 mL) subcut BEDTIME 30 days insulin lispro (Humalog KwikPen (U-100) Insulin) 18 units (0.18 mL) subcut TID 30 days lancets (Fly me to the MoonTouch UltraSoft 2 Lancet) use daily As directed to monitor blood sugars latanoprost 0.005% 1 drp ophthalmic (eye) BEDTIME lisinopril 30 mg PO DAILY 90 days lorazepam 0.5 mg PO BID PRN metformin 500 mg PO BID 90 days mirtazapine 40 mg PO BEDTIME paliperidone ER 3 mg PO DAILY pantoprazole 40 mg PO DAILY 90 days polyethylene glycol 3350 (Miralax) 238 grams PO ONCE ramelteon 8 mg PO BEDTIME rosuvastatin (Crestor) 40 mg PO DAILY 90 days sumatriptan succinate 25 mg PO Q2-4H PRN 30 days tirzepatide (Mounjaro) 7.5 mg (0.5 mL) subcut QWEEK Tobacco use date assessed: 08/26/25 Fall risk assessment: No Falls in past year Last assessed Fall Risk: 08/26/25 Dental Screening Dental Screen Date: 08/26/25 Did you have a dental visit in the last 12 months?: Yes Did you have a dental problem in the last 6 months where you did not have access to dental care?: No Was dental information given to patient?: Patient has dentist HPI HPI Comments History of Present Illness Details The patient is a 70-year-old female presenting with preventative care measures, including vaccinations and management of chronic conditions. The patient has a history of diabetes mellitus, which is currently being managed with endocrinology follow-up. Her last hemoglobin A1c was recorded at 8.2, indicating suboptimal glycemic control. The patient also has hyperlipidemia, with an LDL cholesterol level of 127 mg/dL, which is above the target of 70 mg/dL. She is currently not on rosuvastatin, which is being considered to manage her lipid levels. The patient reports a family history of diabetes, with her father having from the condition and her mother currently living with it. She has a history of smoking but has since quit and does not consume alcohol. [facility] Medical History Hypersomnia Snoring Mild recurrent major depression Physical exam Cognitive impairment Non-proliferative diabetic retinopathy, mild, left eye Hyperparathyroidism due to vitamin D deficiency Osteopenia Obesity (BMI 30-39.9) Non-toxic multinodular goiter Dyslipidemia Vitamin D deficiency Diabetes type 2, uncontrolled Surgical History H/O lithotripsy S/P CARISSA-BSO Hx of tubal ligation H/O foot surgery History of appendectomy Hx laparoscopic cholecystectomy Family History Mother Diabetes Father Diabetes Social History Housing: Apartment Alcohol intake: never Patient Tobacco Use Status: Former Tobacco user e-Cigarette/Vaping Use: Never Used Second Hand Smoke Exposure: No service: No Current occupational status: unemployed Cognitive needs: No Hearing needs: No Vision needs: Yes Questionnaire Thrive Questionnaire Date Thrive assessed: 05/17/25 I am a: Parent/Caregiver What is your living situation today?: I have a steady place to live Within the past 12 months, did the food you bought not last and you didn't have the money to get more?: I choose not to answer this question Within the past 12 months, did you worry whether your food would run out before you got money to buy more?: I choose not to answer this question Do you have trouble paying for medicines?: I choose not to answer this question Do you have trouble getting transportation to medical appointments?: I choose not to answer this question Do you have trouble paying your heating and electricity bill?: Yes Do you have trouble taking care of your child, family member or friend?: I choose not to answer this question Do you have trouble with day-to-day activities such as bathing, preparing meals, shopping, managing finances, etc.?: I choose not to answer this question Are you currently unemployed and looking for a job?: I choose not to answer this question Are you interested in more education?: I choose not to answer this question Please select the resources that you would like help with: None Currently or been in a relationship where the following occur: I choose not to answer THRIVE Score: 1 AUDIT C Alcohol Use Questionnaire (AUDIT-C) 1. How often do you have a drink containing alcohol?: Never 3. How often do you have six or more drinks on one occasion?: Never Total Score: 0 Score Reviewed/Action Taken: No SIENNA-7 AMB Questionnaire SIENNA-7 Date SIENNA - 7 assessed: 05/17/25 Source: Developed by Drs. Tramaine Cooper, Octavia Lau, Abiodun Mendes and colleagues, with an educational samir from [employer]. Review of Systems Const All systems reviewed & are unremarkable except as noted in HPI and below Card Denies chest pain at rest, Denies chest pain with activity, Denies edema, Denies irregular heart rhythm, Denies claudication, Denies dyspnea, Denies dyspnea on exertion, Denies orthopnea, Denies paroxysmal nocturnal dyspnea and Denies slow heart rate Resp Denies cough, Denies dyspnea and Denies dyspnea on exertion Neuro Denies lack of coordination Physical exam (Primary Care) Vital Signs: Last Vital Signs Pulse 94 08/26/25 12:51 BP 122/78 08/26/25 12:51 Pulse Ox 95 08/26/25 12:51 Oxygen Delivery Method Room Air 08/26/25 12:51 BMI result Body Mass Index 37.9 BMI Assessment/Plan discussion: High BMI High, discussed plan: lifestyle, weight reduction, dietary and physical activity Tobacco/Smoking Status: Tobacco use Status Tobacco use date assessed 08/26/25 08/26/25 12:54 Patient Tobacco Use Status Former Tobacco user 08/26/25 12:54 e-Cigarette/Vaping Use Never Used 08/26/25 12:54 Thrive Assessment: Date of Thrive Assessment Date Thrive assessed 05/17/25 08/26/25 12:54 Currently or been in a relationship where the following occur: I choose not to answer Resp Effort & Inspection: normal respiratory effort Auscultation: clear to auscultation bilaterally Cardio Jugular venous distension: no JVD Rate: regular rate Rhythm: regular rhythm Heart sounds: S1 normal heart sound present and S2 normal heart sound present Extrem General: Yes full ROM Immunizations pneumoc 20-angie conj-dip cr(PF) 0.5 mL IM syringe Performing Provider: Juliet Henry MD [place] [facility] [facility] Administered by: ANTOINE García on 08/26/25 13:33 Dose Route Admin Location Dispensed Lot Number Expiration Date [facility] [place] [facility] Aide 0.5 mL IM Left Deltoid 0.5 mL [id number] 08/02/26 1514-6416-00 [employer] Total Dispensed Waste 0.5 mL 0 % VIS Given Date VIS Provided VIS Publication Date 08/26/25 Single Vaccine 25 Eligibility Eligibility Date Funding Source Not VFC Eligible 08/26/25 Private Boostrix Tdap 2.5 Lf unit-8 mcg-5 Lf/0.5 mL intramuscular syringe Performing Provider: Juliet Henry MD Per[place] [facility] Administered by: ANTOINE García on 08/26/25 13:33 Dose Route Admin Location Dispensed Lot Number Expiration Date [facility] [place] Social Services Aide 0.5 mL IM Right Deltoid 0.5 mL [id number] 10/21/27 83137-036-60 [employer] Total Dispensed Waste 0.5 mL 0 % VIS Given Date VIS Provided VIS Publication Date 08/26/25 Single Vaccine 21 Eligibility Eligibility Date Funding Source Not [facility] Eligible 08/26/25 Private Coding Level of Care Code Est Pt Level 3 (65651) Est Pt Prev Care >65y(55022) Diagnoses Physical exam Z00.00 Type 2 diabetes mellitus with hyperglycemia, with long-term current use of insulin E11.65; Z79.4 Diabetes mellitus complication status: with hyperglycemia Mild recurrent major depression F33.0 Bipolar disorder F31.9 Chronic GERD K21.9 Lumbar degenerative disc disease M51.369 Time Spent (min) 35 Assessment & Plan Assessment & Plan (1) Physical exam: Code(s): Z00.00 - Encounter for general adult medical examination without abnormal findings Category: Medical (2) Type 2 diabetes mellitus, with long-term current use of insulin: Code(s): E11.9 - Type 2 diabetes mellitus without complications; Z79.4 - jail (current) use of insulin Category: Medical Qualifiers: Diabetes mellitus complication status: with hyperglycemia Qualified Code(s): E11.65 - Type 2 diabetes mellitus with hyperglycemia; Z79.4 - 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 Diabetes Mellitus The patient's diabetes mellitus is currently being managed with endocrinology follow-up. Her hemoglobin A1c is elevated at 8.2, indicating the need for improved glycemic control. 2. Hyperlipidemia The patient has hyperlipidemia with an LDL cholesterol level of 127 mg/dL. Consideration is being given to starting rosuvastatin to achieve the target LDL level of 70 mg/dL. 3. Preventative Care: Tetanus And Pneumonia Vaccinations The patient is scheduled to receive tetanus and pneumonia vaccinations as part of her preventative care plan. Orders: Orders Lipid Panel 4 Months E78.5 - Hyperlipidemia, unspecified Microalbumin, Random (w Creat) 4 Months R80.9 - Proteinuria, unspecified Vitamin D 25-OH Total 4 Months E55.9 - Vitamin D deficiency, unspecified Comprehensive [place]. Panel Fast 4 Months K21.9 - Gastro-esophageal reflux disease without esophagitis TDaP Immunization Today Z23 - Encounter for immunization Pneumococcal 20 Immunization Today Z23 - Encounter for immunization Medications: New lansoprazole 15 mg PO DAILY 30 caps 6RF 30 days [shower chair] As directed 1 ea 0RF M51.369 - Other intervertebral disc degeneration, lumbar region without mention of lumbar back pain or lower extremity pain Refilled sumatriptan succinate do not exceed 8 doses per 24 hrs 25 mg PO Q2-4H PRN 9 tabs 2RF migraine headache 30 days rosuvastatin (Crestor) 40 mg PO DAILY 90 tabs 3RF 90 days E78.5 - Hyperlipidemia, unspecified Discontinued pantoprazole Discontinued Reason: Patient Completed Course 40 mg PO DAILY 90 days 90 tabs 3RF
[2025-08-26 12:51] VITALS: BP 122/78; PULSE 94; O2SAT 95; BMI 37.9
--- OUTSIDE RECORDS SUMMARY | 2025-08-26 17:32 | XMS_ITS | Clinical Summary ---
Author Organization [employer] Address [address] [place] [address] [address] [place] [address] Care Team Providers Care City Distribution Clerk Name Role Phone Unavailable Primary Care Provider [...] LUNCH AND SUPPER 4 Active Continuous Glucose Test Puller (FreeStyle Blank 3 [place]) device 5 Active Continuous Glucose Sensor (FreeStyle Blank 3 Sensor) misc 5 Active diclofenac (Cataflam) 50 MG tablet 5 Active B-D UF III MINI PEN NEEDLES 31G X 5 MM [facility] [place] CUATRO VECES AL D A 4 [...] to Health Maintenance Insurance AETNA MEDICARE [facility] ST[facility] ADULT DENTAL - AETNA DENTAL PPO
--- OUTSIDE RECORDS SUMMARY | 2025-08-26 17:32 | XMS_ITS | Encounter Summary ---
Author Organization [employer] Address [address] [facility] [address] [place] [address] Care Team Providers Care Baccarat Dealer Name Role Phone Unavailable Primary Care Provider Unavailabl e Encounter Details Date Type Department Care Team (Late st Contact Info) Description 09/25/2023 Abstract [facility] ADULT DENTAL [address] [place] [address] Lelia Boateng [address] [place] [address] Social History Tobacco Use Types Packs/Day Years [...]
== END 2025-08-26 13:34 | disposition home or self-care (01) ==
LOC: HO.HMCH 12:46
PROVIDERS: PCP Internal Medicine; Visit Provider Internal Medicine
DX: Z00.00 Encounter for general adult medical examination without abnormal findings (principal); E11.65 Type 2 diabetes mellitus with hyperglycemia; Z79.4 Long term (current) use of insulin; F31.9 Bipolar disorder, unspecified; K21.9 Gastro-esophageal reflux disease without esophagitis; M51.369 Other intervertebral disc degeneration, lumbar region without mention of lumbar back pain or lower extremity pain; Z23 Encounter for immunization

== ENCOUNTER → 2025-08-26 12:45 | Outpatient (BNVA) | payer OTHER, SELFPAY | PROVIDERS: PCP Internal Medicine; Visit Provider Internal Medicine | DX: Z00.00 Encounter for general adult medical examination without abnormal findings (principal); Z23 Encounter for immunization; E11.65 Type 2 diabetes mellitus with hyperglycemia; F31.9 Bipolar disorder, unspecified; K21.9 Gastro-esophageal reflux disease without esophagitis; M51.369 Other intervertebral disc degeneration, lumbar region without mention of lumbar back pain or lower extremity pain; Z79.4 Long term (current) use of insulin | CPT/HCPCS: 90471; 90472; 90677; 90715; 99212; 99397 ==

== ENCOUNTER 2025-11-22 11:13 | Outpatient (AMB) | payer OTHER, SELFPAY ==
[2025-11-22 11:15] VITALS: BP 110/86; PULSE 92; O2SAT 96; BMI 38.4
--- NOTE | 2025-11-22 11:15 | MHC.OFFVIS ---
Vital Signs 11/22/25 11:15 Height 5 ft 3 in Weight 216 lb 11.43 oz BMI 38.4 BP 110/86 Blood Pressure Location Lt brachial Position Sitting Pulse 92 Pulse Source Pulse Oximeter Pulse Oximetry (%) 96 Oxygen Delivery Method Room Air Intake Visit Reasons: T2DM Intake Note: Patient present today for Type 2 Diabetes Mellitus Last Diabetic eye exam: Last exam was on 10/16/24 at [facility] Last Podiatry Visit: Doesn't have one Random Glucose: 297 mg/dl HgA1C: 8.4% Battery Service Technician Required: Yes Battery Service Technician Language: Product Safety And Standards Engineer Services: Battery Service Technician Offered & Declined Accompanied by: Daughter Allergies No Known Allergies (No Known Allergies*) Allergy (Verified 11/22/25 11:24) Medication List - Last Reconciled 11/22/25 by Jennifer Villarreal PA-C blood sugar diagnostic ([email or web address] Ultra Test strips) Use daily As directed to monitor blood glucose blood-glucose meter ([email or web address] Ultra2 Meter) Use daily As directed to monitor blood sugars. 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,cont (FreeStyle Blank 3 [place]) Use daily As directed to monitor blood glucose buspirone 7.5 mg PO BID lrycnysotd-qejpjlfzypszy-sahr 50-300-40 mg 1 cap PO Q8H PRN 30 days cholecalciferol (vitamin D3) 50 mcg PO DAILY 30 days citalopram 20 mg PO DAILY dapagliflozin propanediol (Farxiga) 10 mg PO DAILY diclofenac potassium 50 mg PO BID 10 days glucose (Dex4 Glucose) 16 grams (4 x 4 gram) PO Q15M PRN insulin degludec (Tresiba FlexTouch U-100 insulin) 70 units (0.7 mL) subcut BEDTIME 30 days insulin lispro (Humalog KwikPen (U-100) Insulin) 20 units (0.2 mL) subcut TID 30 days lancets ([email or web address] UltraSoft 2 Lancet) use daily As directed to monitor blood sugars lansoprazole 15 mg PO DAILY 30 days latanoprost 0.005% 1 drp ophthalmic (eye) BEDTIME lisinopril 30 mg PO DAILY 90 days lorazepam 0.5 mg PO BID PRN metformin 500 mg PO BID 90 days mirtazapine 40 mg PO BEDTIME paliperidone ER 3 mg PO DAILY polyethylene glycol 3350 (Miralax) 238 grams PO ONCE ramelteon 8 mg PO BEDTIME rosuvastatin (Crestor) 40 mg PO DAILY 90 days [shower chair As directed] sumatriptan succinate 25 mg PO Q2-4H PRN 30 days tirzepatide (Mounjaro) 10 mg (0.5 mL) subcut QWEEK underpads (Bed Underpads) USe 4 pads per day HPI HPI T2DM: Details: Patient is a 70-year-old female with a significant past medical history of depression, cognitive impairment, hyperlipidemia, hypertension, secondary hyperparathyroidism, type 2 diabetes uncontrolled presenting today for a diabetic follow-up. Her daughter is here today to help with translation. Endo: DM-she was diagnosed with type 2 diabetes around 2009. Her A1c is 8.4. She is currently on metformin 500 mg twice a day, Tresiba 70 units nightly and Humalog 18 units with breakfast, lunch and supper, She is on Farxiga 10 mg daily, and mounjaro 7.5 mg weekly. No nausea with mounjaro, tolerating well, no appetite suppression. Ozempic caused nausea. She has tried trulicity and Bydureon BCise without improvement of glucose. The trulicity caused nausea. She gets bruising and pain with the injection of BCise. She states that it feels very ineffective and the shots are very painful for her. She does not know why as giving herself insulin and trying Trulicity in the past was not painful. She does not tolerate higher doses of metformin. CGM- Blank download shows says sensor is active 99% of the time. average glucose 228. GMI 8.8%. 30% range , 37% hyperglycemia, 33% very hyperglycemic and no hypoglycemia. Her diet is very limited per daughter. Patient does not like to eat protein and diet in carbohydrates. No hypoglycemia-states that she has not had any low blood sugars in quite some time and also would corrected in the past with juice. CV: Blood pressure today in the office is 110/86. She is on 30 mg of lisinopril daily. Tolerates this well. Cholesterol is controlled with Crestor. Last LDL was WNL but not checked since 2021 [facility] Medical History Hypersomnia Snoring Mild recurrent major depression Physical exam Cognitive impairment Non-proliferative diabetic retinopathy, mild, left eye Hyperparathyroidism due to vitamin D deficiency Osteopenia Obesity (BMI 30-39.9) Non-toxic multinodular goiter Dyslipidemia Vitamin D deficiency Diabetes type 2, uncontrolled Surgical History H/O lithotripsy S/P CARISSA-BSO Hx of tubal ligation H/O foot surgery History of appendectomy Hx laparoscopic cholecystectomy Family History Mother Diabetes Father Diabetes Social History Housing: Apartment Alcohol intake: never Patient Tobacco Use Status: Former Tobacco user e-Cigarette/Vaping Use: Never Used Second Hand Smoke Exposure: No service: No Current occupational status: unemployed Cognitive needs: No Hearing needs: No Vision needs: Yes Physical Exam Vital Signs: Last Vital Signs Pulse 92 11/22/25 11:15 BP 110/86 11/22/25 11:15 Pulse Ox 96 11/22/25 11:15 Oxygen Delivery Method Room Air 11/22/25 11:15 BMI result Body Mass Index 38.4 Const Orientation/consciousness: patient oriented x3 HEENT Ears: hearing grossly normal bilaterally Neck Thyroid: Thyroid normal Lymphatic: no lymphadenopathy noted Resp Auscultation: clear to auscultation bilaterally Cardio Rate: regular rate Rhythm: regular rhythm Heart sounds: S1 normal heart sound present and S2 normal heart sound present Skin General skin exam: no rashes or lesions noted Neuro General: patient oriented x3, gait normal and no focal motor deficits Results AMB Hemoglobin A1c AMB Hemoglobin A1c 8.4 % Last Edit by ANTOINE Leung on 11/22/25 11:35 Results Reviewed Results Reviewed: Laboratory Last Values Glucose (Clinic) 297 mg/dL (60-115) H 11/22/25 11:26 Assessment & Plan Assessment & Plan (1) Type 2 diabetes mellitus, with long-term current use of insulin: Code(s): E11.9 - Type 2 diabetes mellitus without complications; Z79.4 - 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 Sooner if needed. Advised patient to complete labs prior to appointment. (2) Essential hypertension: Code(s): I10 - Essential (primary) hypertension Category: Medical Plan: WNL. Continue current regimen (3) Hyperlipidemia LDL goal <70: Code(s): E78.5 - Hyperlipidemia, unspecified Category: Medical Plan: Advised patient to get labs as previously ordered Orders: Orders AMB Hemoglobin A1c Today E11.65 - Type 2 diabetes mellitus with hyperglycemia, Z13.9 - Encounter for screening, unspecified, Z79.4 - snf (current) use of insulin Medications: New tirzepatide (Mounjaro) 10 mg (0.5 mL) subcut QWEEK 2 mL 5RF Changed From insulin lispro (Humalog KwikPen (U-100) Insulin) with breakfast, lunch and supper 18 units (0.18 mL) subcut TID 30 days 45 mL 3RF To insulin lispro (Humalog KwikPen (U-100) Insulin) with breakfast, lunch and supper 20 units (0.2 mL) subcut TID 18 mL 3RF 30 days Refilled blood-glucose sensor (FreeStyle Blank 3 Plus Sensor device) Use daily As directed to monitor glucose 6 ea 3RF E08.29 - Diabetes mellitus due to underlying condition with other diabetic kidney complication, R80.9 - Proteinuria, unspecified, Z79.4 - snf (current) use of insulin Discontinued tirzepatide (Mounjaro) Discontinued Reason: Doctor's Order 7.5 mg (0.5 mL) subcut QWEEK 2 mL 4RF Coding Level of Care Code Est Pt Level 4 (10164) Add On Problem Visit Only Diagnoses Type 2 diabetes mellitus with hyperglycemia, with long-term current use of insulin E11.65; Z79.4 Diabetes mellitus complication status: with hyperglycemia Essential hypertension I10 Hyperlipidemia LDL goal <70 E78.5
[2025-11-22 11:30] LABS: Glucose, Whole Blood 297 mg/dL (60-115)
--- OUTSIDE RECORDS SUMMARY | 2025-11-22 14:19 | XMS_ITS | Clinical Summary ---
Author Organization [employer] Address [address] [place] [address] [address] [place] [address] Care Team Providers Care Machine Repairer Name Role Phone Unavailable Primary Care Provider [...] LUNCH AND SUPPER 4 Active Continuous Glucose Qa Tester (FreeStyle Blank 3 [place]) device 5 Active Continuous Glucose Sensor (FreeStyle Blank 3 Sensor) [facility] 5 Active diclofenac (Cataflam) 50 MG tablet 5 Active B-D UF III MINI PEN NEEDLES 31G X 5 MM [facility] [place] USE CUATRO VECES AL D A [...] Encounters Date Type Department Care Team Description 11/09/[address] [address] Lyn Pop MD FACILITY MANAGER from Last 3 Months Immunizations Immunization Administration [...] Dental X-Ray: [facility] 08/16/2024 08/15/2023 COVID-19 Vaccine (3 - season) 2025 04/13/2021, 03/23/2021 Influenza Vaccine (#1) [...] to Health Maintenance Insurance AETNA MEDICARE REPLACEMENT DENTAL-[facility] MED[facility] STAND ADULT DENTAL - AETNA DENTAL PPO
--- OUTSIDE RECORDS SUMMARY | 2025-11-22 14:19 | XMS_ITS | Encounter Summary ---
Author Organization [employer] Address [address] [facility] [address] [place] [address] Care Team Providers Care Logistic Specialist Name Role Phone Unavailable Primary Care Provider Unavailabl e Encounter Details Date Type Department Care Team (Late st Contact Info) Description 09/25/2023 Abstract [facility] ADULT D[facility] [address] [place] [address] Lelia Boateng [address] [place] [address] Social History Tobacco Use Types Packs/Day Years [...]
== END 2025-11-22 11:45 | disposition home or self-care (01) ==
LOC: HO.ENCR 11:14
PROVIDERS: PCP Internal Medicine; Visit Provider Physician Assistant
DX: E11.65 Type 2 diabetes mellitus with hyperglycemia (principal); Z79.4 Long term (current) use of insulin; I10 Essential (primary) hypertension; E78.5 Hyperlipidemia, unspecified; Z13.9 Encounter for screening, unspecified

== ENCOUNTER → 2025-11-22 11:13 | Outpatient (BNVA) | payer OTHER, SELFPAY | PROVIDERS: PCP Internal Medicine; Visit Provider Physician Assistant | DX: E11.65 Type 2 diabetes mellitus with hyperglycemia (principal); Z79.4 Long term (current) use of insulin; I10 Essential (primary) hypertension; E78.5 Hyperlipidemia, unspecified; R80.9 Proteinuria, unspecified | CPT/HCPCS: 82947; 83036; 99212 ==